=== PATIENT | male | born 1955 | race Caucasian/White ===

== ENCOUNTER 2020-04-12 09:06 | Emergency (ER) | payer MEDICAID, SELFPAY ==
[2020-04-12 09:16] VITALS: BP 157/91; BP 160/90; PULSE 106; PULSE 93; RESP 18; TEMP 36.8; O2SAT 97; O2SAT 98; BMI 20.9
[2020-04-12 09:18] LABS: Glucose, Whole Blood 458 mg/dL (60-115)
--- NOTE | 2020-04-12 09:19 | ECG_ITS ---
Test Reason : AP Blood Pressure : / mmHG Vent. Rate : 088 BPM Atrial Rate : 088 BPM P-R Int : 160 ms QRS Dur : 076 ms QT Int : 374 ms P-R-T Axes : 070 -14 038 degrees QTc Int : 452 ms Normal sinus rhythm Possible Left atrial enlargement Borderline ECG When compared with ECG of 12-JAN-2015 02:20, No significant change was found Referred By: Thierry Bautista Electronically Signed By:Milton Lomax
--- NOTE | 2020-04-12 09:22 | ED_ITS ---
HPI - Abdominal Pain General Chief Complaint: Abdominal Pain Stated Complaint: Abdominal Pain Time Seen by Provider: 04/12/20 09:17 Source: patient Mode of arrival: ambulatory Limitations: no limitations History of Present Illness HPI narrative: Patient presents to ED for epigastric abdominal pain for the past 5 days. Patient states no nausea, vomiting, fever, chills, diarrhea, chest pain, or shortness of breath. patient denies any dysuria, hematuria, flank pain, diarrhea, vomitting blood, or rectal bleeding. MD elicited complaint: abdominal pain Pertinent past history: HIV Related Data Previous Rx's Medication Instructions Recorded ondansetron HCl [Zofran] 4 mg PO Q6H PRN #8 tab 04/12/20 oxycodone-acetaminophen [Percocet] 1 tab PO TID PRN #9 tab 04/12/20 Allergies Allergy/AdvReac Type Severity Reaction Status Date / Time No Known Allergies Allergy Verified 04/12/20 09:21 [No Known Allergies*] Review of Systems Constitutional: Reports as per HPI and Reports no additional constitutional complaints Eyes: Reports as per HPI and Reports no additional eye complaints Reports system reviewed and no additional complaints, except as documented and Reports as per HPI Cardiovascular: Reports as per HPI and Reports no additional cardiovascular complaints Respiratory: Reports as per HPI and Reports no additional respiratory complaints Gastrointestinal: Reports as per HPI, Reports no additional gastrointestinal complaints, Reports abdominal pain, Denies belching, Denies melena, Denies bloating, Denies change in stool character, Denies coffee ground emesis, Denies constipation, Denies GI cramping, Denies diarrhea, Denies loose stools, Denies nausea, Denies vomiting and Denies hematemesis Genitourinary: Reports no additional male genitourinary complaints and Reports as per HPI Musculoskeletal: Reports no additional musculoskeletal complaints and Reports as per HPI Reports system reviewed and no additional complaints, except as documented and Reports as per HPI Psychiatric: Reports no additional psychiatric complaints and Reports as per HPI Physical Exam Vital Signs: Vital Signs: Last Vital Signs Temp 98.3 F 04/12/20 09:16 Pulse 74 04/12/20 13:29 Resp 16 04/12/20 13:29 BP 139/78 04/12/20 13:29 Pulse Ox 98 04/12/20 13:29 Body Mass Index 20.9 Const: General: cooperative, healthy appearing, comfortable, no acute distress, well developed, alert and awake Orientation/consciousness: patient oriented x3 HENMT: Head: Yes normal to inspection and Yes No palpable skull fracture present Eyes: General: appearance normal, both eyes and all related structures Neck: Neck: Yes normal visual inspection and Yes full ROM Chest: Chest palpation & inspection: normal inspection of the chest and normal palpation of entire chest wall Resp: Effort & Inspection: normal respiratory effort and able to speak in complete sentences Auscultation: clear to auscultation bilaterally Cardio: Jugular venous distension: no JVD Heart sounds: S1 normal heart sound present and S2 normal heart sound present GI: Inspection: Yes normal to inspection and No abdominal wall ecchymosis Palpation (GI): Soft to palpation, not firm, Tenderness to palpation present (GI) in the epigastrum; not at McBurney's point, not periumbilically, not suprapubicly, Antoine's sign negative, obturator sign negative, psoas sign negative, with no rebound tenderness and Rovsing's sign negative, no guarding and not rigid : General: No CVA tenderness and Yes no CVA tenderness Back/Spine/Pelvis: Back: no CVA tenderness, No CVA tenderness and No back tenderness Skin: General skin exam: no rashes or lesions noted Neuro: General: patient oriented x3, gait normal and CN's II-XI intact bilaterally Cranial nerves: Yes CN's II-XII intact bilaterally Extrem: General: Yes normal to inspection and Yes full ROM Psych: Appearance: grossly normal, well kempt and not disheveled Course Course Course Narrative: Patient will have basic labs including EKG and troponin due to patient having history of diabetes with epigastric pain. Patient will also be given fluids, and Pepcid. Patient is hyperglycemic. Patient admits to not taking his insulin this morning. Will evaluate for possible DKA or cardiac etiology. If pain is not improving and patient is not having a cardiac or DKA may indicate CT scan to make sure the pancreatitis. Reevaluation(s) Reevaluation #1: Patient's pain resolved after Pepcid and IV fluids. Patient's 2 troponins are negative. Patient's CT scan shows gallstone with no cholecystitis. CT scan also shows possible pancreatitis. Patient's lipase and liver enzymes normal. Patient does not have elevated white blood cell count. Patient would like to eat. Plan is most likely to discharge patient with pain medication. Awaiting response from Dr. Spear is for clearance. Patient has hyperglycemia improved. patient presently has no pain. Time: 14:23 Reevaluation #2: Spoke with Dr. Hui who states patient can be discharged and follow-up with [facility]. Dr. Hui was informed of patient's history, physical exam and diagnostics. Dr. Benz was sent picture of CT scan results, and lab results. Patient will be discharged with short course of narcotics. Patient not having cardiac event. Patient passed p.o. challenge Time: 14:34 MDM - Abdominal Pain MDM Narrative Medical decision making narrative: Gallstones pancreatitis Lab Data Result diagrams: 04/12/20 09:42 04/12/20 09:42 Labs: Lab Results 04/12/20 04/12/20 04/12/20 Range/Units 09:15 09:42 09:42 WBC 4.6 L (4.8-10.8) X10*3/uL RBC 5.10 (4.60-5.80) X10*6/uL Hgb 12.9 L (14.0-18.0) g/dl Hct 40.5 L (42-52) % MCV 79.4 L (80-98) fL MCH 25.3 L (27.0-33.0) pg MCHC 31.9 (31.0-36.0) g/dl RDW 12.9 (11.0-16.0) % Plt Count 161 (160-400) X10*3/uL MPV 10.0 (9.4-12.4) fL Immature Gran % (Auto) 0.2 (0.0-0.4) % Neut % (Auto) 76.5 H (45-73) % Lymph % (Auto) 15.3 L (20-40) % Appling % (Auto) 7.4 (2-11) % Eos % (Auto) 0.4 (0-4) % Baso % (Auto) 0.2 (0-2) % Lymph # (Auto) 0.7 L (1.2-4.9) X10*3/uL Appling # (Auto) 0.3 (0.1-1.2) X10*3/uL Eos # (Auto) 0.0 (0.0-0.4) X10*3/uL Baso # (Auto) 0.0 (0.0-0.2) X10*3/uL Abs Immat Gran (auto) 0.01 (0.00-0.03) X10*3/uL Absolute Neuts (auto) 3.5 (2.0-8.3) X10*3/uL Absolute Nucleated RBC 0.000 (0.0-0.012) X10*3/uL Nucleated RBC % (auto) 0.0 (0.0-0.2) /100WBC PT 13.5 H (10.8-13.0) SEC INR 1.1 (0.9-1.1) APTT 31.5 (24.1-38.0) SEC Sodium (135-145) mmol/L Potassium (3.3-5.1) mmol/l Chloride (96-108) mmol/L Carbon Dioxide (22-29) mmol/L Anion Gap (12-20) BUN (9-16) mg/dL Creatinine (0.5-1.4) mg/dL Estim Creat Clear Calc Estimated GFR POC Glucose 458 H* (60-115) mg/dL Random Glucose (60-115) mg/dL Calcium (8.4-10.2) mg/dL Total Bilirubin (0.0-1.0) mg/dL Direct Bilirubin (0.0-0.5) mg/dL AST (5-37) U/L ALT (0-40) U/L Alkaline Phosphatase (39-117) U/L Troponin I High Sens (<3.5-35.0) ng/L Total Protein (6.5-8.0) g/dL Albumin (3.5-5.0) g/dL Lipase (8-78) U/L Acetone, Qual (Negative) 04/12/20 04/12/20 04/12/20 Range/Units 09:42 09:42 11:09 WBC (4.8-10.8) X10*3/uL RBC (4.60-5.80) X10*6/uL Hgb (14.0-18.0) g/dl Hct (42-52) % MCV (80-98) fL MCH (27.0-33.0) pg MCHC (31.0-36.0) g/dl RDW (11.0-16.0) % Plt Count (160-400) X10*3/uL MPV (9.4-12.4) fL Immature Gran % (Auto) (0.0-0.4) % Neut % (Auto) (45-73) % Lymph % (Auto) (20-40) % Appling % (Auto) (2-11) % Eos % (Auto) (0-4) % Baso % (Auto) (0-2) % Lymph # (Auto) (1.2-4.9) X10*3/uL Appling # (Auto) (0.1-1.2) X10*3/uL Eos # (Auto) (0.0-0.4) X10*3/uL Baso # (Auto) (0.0-0.2) X10*3/uL Abs Immat Gran (auto) (0.00-0.03) X10*3/uL Absolute Neuts (auto) (2.0-8.3) X10*3/uL Absolute Nucleated RBC (0.0-0.012) X10*3/uL Nucleated RBC % (auto) (0.0-0.2) /100WBC PT (10.8-13.0) SEC INR (0.9-1.1) APTT (24.1-38.0) SEC Sodium 135 (135-145) mmol/L Potassium 4.3 (3.3-5.1) mmol/l Chloride 97 (96-108) mmol/L Carbon Dioxide 27 (22-29) mmol/L Anion Gap 15 (12-20) BUN 22 H (9-16) mg/dL Creatinine 1.19 (0.5-1.4) mg/dL Estim Creat Clear Calc 59.5 Estimated GFR > 60 POC Glucose 306 H (60-115) mg/dL Random Glucose 512 H* (60-115) mg/dL Calcium 8.5 (8.4-10.2) mg/dL Total Bilirubin 0.4 (0.0-1.0) mg/dL Direct Bilirubin 0.2 (0.0-0.5) mg/dL AST 19 (5-37) U/L ALT 17 (0-40) U/L Alkaline Phosphatase 81 (39-117) U/L Troponin I High Sens 5.2 (<3.5-35.0) ng/L Total Protein 7.8 (6.5-8.0) g/dL Albumin 4.0 (3.5-5.0) g/dL Lipase 71 (8-78) U/L Acetone, Qual Negative (Negative) 04/12/20 Range/Units 13:29 WBC (4.8-10.8) X10*3/uL RBC (4.60-5.80) X10*6/uL Hgb (14.0-18.0) g/dl Hct (42-52) % MCV (80-98) fL MCH (27.0-33.0) pg MCHC (31.0-36.0) g/dl RDW (11.0-16.0) % Plt Count (160-400) X10*3/uL MPV (9.4-12.4) fL Immature Gran % (Auto) (0.0-0.4) % Neut % (Auto) (45-73) % Lymph % (Auto) (20-40) % Appling % (Auto) (2-11) % Eos % (Auto) (0-4) % Baso % (Auto) (0-2) % Lymph # (Auto) (1.2-4.9) X10*3/uL Appling # (Auto) (0.1-1.2) X10*3/uL Eos # (Auto) (0.0-0.4) X10*3/uL Baso # (Auto) (0.0-0.2) X10*3/uL Abs Immat Gran (auto) (0.00-0.03) X10*3/uL Absolute Neuts (auto) (2.0-8.3) X10*3/uL Absolute Nucleated RBC (0.0-0.012) X10*3/uL Nucleated RBC % (auto) (0.0-0.2) /100WBC PT (10.8-13.0) SEC INR (0.9-1.1) APTT (24.1-38.0) SEC Sodium (135-145) mmol/L Potassium (3.3-5.1) mmol/l Chloride (96-108) mmol/L Carbon Dioxide (22-29) mmol/L Anion Gap (12-20) BUN (9-16) mg/dL Creatinine (0.5-1.4) mg/dL Estim Creat Clear Calc Estimated GFR POC Glucose (60-115) mg/dL Random Glucose (60-115) mg/dL Calcium (8.4-10.2) mg/dL Total Bilirubin (0.0-1.0) mg/dL Direct Bilirubin (0.0-0.5) mg/dL AST (5-37) U/L ALT (0-40) U/L Alkaline Phosphatase (39-117) U/L Troponin I High Sens 3.6 (<3.5-35.0) ng/L Total Protein (6.5-8.0) g/dL Albumin (3.5-5.0) g/dL Lipase (8-78) U/L Acetone, Qual (Negative) ECG Data Interpretation: Normal sinus rhythm. Ventricular rate 88. IN interval 160. QRS 76. Negative STEMI. Discharge Plan Discharge Clinical Impression: Gallstone pancreatitis Patient Disposition: Home, Self-Care Instructions: Pancreatitis (ED), Gallstones (ED) Additional Instructions: Return to the ED immediately for worsening abdominal pain, inability to tolerate solid food/liquid, vomiting, fever, chills, or any other concerning symptoms. Prescriptions: New oxycodone-acetaminophen [Percocet] 5-325 mg tablet 1 tab PO TID PRN (Reason: pain) Qty: 9 RF: 0 ondansetron HCl [Zofran] 4 mg tablet 4 mg PO Q6H PRN (Reason: pain) Qty: 8 RF: 0 Referrals: Emmanuel Hui MD [Physician] - 2 days (Gallstones with possible pancreatitis.) Stand Alone Forms: Work/School Release Print Language: [facility] Past Medical History Medical History (Updated 04/12/20 @ 14:27 by ROBSON Sutherland) Diabetes HIV (human immunodeficiency virus infection) Social History Social History Smoking Status: Former smoker Use of substances other than those prescribed or required for medical reasons: No Substance Use Type: Former Substance User Advance Directives: No Advance Directives Information Provided: No
[2020-04-12] MEDS: Famotidine/PF 20 MG/2 ML VIAL IVPUSH (09:53)
[2020-04-12] MEDS: 0.9 % Sodium Chloride 1,000 ML 999 ML IVCONT ×3 (09:53→11:10)
[2020-04-12] MEDS: Insulin Regular, Human 100 UNIT/ML 3 ML VIAL 10 UNIT IVPUSH (09:54)
[2020-04-12 09:56] LABS: MANUAL DIFF FLAG NO
[2020-04-12 09:57] VITALS: BP 151/87; PULSE 84; RESP 16; O2SAT 97
[2020-04-12 09:59] LABS: Basophils Percent Auto 0.2 % (0-2); Eosinophils Percent Auto 0.4 % (0-4); Hematocrit 40.5 % (42-52); Hemoglobin 12.9 g/dl (14.0-18.0); Imm Gran Abs Auto 0.01 X10*3/uL (0.00-0.03); Imm Gran Pct Auto 0.2 % (0.0-0.4); Lymphocytes Absolute Auto 0.7 X10*3/uL (1.2-4.9); Lymphocytes Percent Auto 15.3 % (20-40); Mean Corpuscular HGB Conc 31.9 g/dl (31.0-36.0); Mean Corpuscular Hemoglobin 25.3 pg (27.0-33.0); Mean Corpuscular Volume 79.4 fL (80-98); Monocytes Absolute Auto 0.3 X10*3/uL (0.1-1.2); Monocytes Percent Auto 7.4 % (2-11); Neutrophils Absolute Auto 3.5 X10*3/uL (2.0-8.3); Neutrophils Percent Auto 76.5 % (45-73); Platelet Count 161 X10*3/uL (160-400); Red Cell Distribution Width 12.9 % (11.0-16.0); White Blood Count 4.6 X10*3/uL (4.8-10.8)
[2020-04-12 10:13] LABS: INTERNATIONAL NORM RATIO 1.1 (0.9-1.1); Prothrombin Time 13.5 SEC (10.8-13.0)
[2020-04-12 10:15] LABS: Partial Thromboplastin Time 31.5 SEC (24.1-38.0)
[2020-04-12 10:31] LABS: Troponin-I High Sensitivity 5.2 ng/L (<3.5-35.0)
[2020-04-12 10:47] LABS: Alanine Aminotransferase 17 U/L (0-40); Alkaline Phosphatase 81 U/L (39-117); Anion Gap 15 (12-20); Aspartate Amino Transferase 19 U/L (5-37); Bilirubin Direct 0.2 mg/dL (0.0-0.5); Bilirubin Total 0.4 mg/dL (0.0-1.0); Blood Urea Nitrogen 22 mg/dL (9-16); Calcium 8.5 mg/dL (8.4-10.2); Carbon Dioxide 27 mmol/L (22-29); Chloride 97 mmol/L (96-108); Creatinine Clr Calc Pharmacy 59.5; Estimated Glomerular Filt Rate > 60; Glucose Random 512 mg/dL (60-115); Lipase 71 U/L (8-78); Potassium 4.3 mmol/l (3.3-5.1); Sodium 135 mmol/L (135-145); Total Protein 7.8 g/dL (6.5-8.0)
--- NOTE | 2020-04-12 10:49 | CT_ITS ---
EXAMINATION: CT ABDOMEN AND PELVIS WITH CONTRAST CLINICAL INFORMATION: Epigastric pain. Question pancreatitis, question cholecystitis. COMPARISON: 01/12/2015 TECHNIQUE: Multidetector volumetric images were obtained from the superior aspect of the liver through the pubic symphysis following administration 85 mL of Omnipaque 350 intravenous contrast. Sagittal and coronal reformatted images were obtained on the technologist's workstation. Oral contrast: No This CT examination was performed using dose optimization techniques as appropriate, variously including the following: *Automated exposure control *Adjustment of mA and/or kV according to patient size (this includes techniques or standardized protocols for targeted exams where dose is matched to indication/reason for exam; i.e. extremities or head) *Use of iterative reconstruction technique DLP: 125 mGy-cm FINDINGS: LUNG BASES: Mild bibasilar changes. LIVER, GALLBLADDER, AND BILIARY TREE: No focal liver lesions. No biliary duct dilatation. Small calcific focus in the left lobe of the liver, stable. Small gallstones. No obvious pericholecystic inflammatory changes are seen. PANCREAS: There is haziness in the fat adjacent to the head and neck of the pancreas and along the mesentery in this region. This appears new as compared to previous. This could represent sequela of pancreatitis. SPLEEN: Unremarkable. ADRENAL GLANDS: Unremarkable. KIDNEYS AND URETERS: Normal enhancement. No renal or ureteral calculi are seen. Redemonstrated is left extrarenal pelvis. No hydronephrosis. BLADDER: Unremarkable. GASTROINTESTINAL TRACT: Normal bowel obstruction. No inflammatory changes evident in the small or large bowel. The appendix is not visualized, with no obvious inflammatory changes right lower quadrant. ABDOMINAL WALL: Small fat-containing umbilical hernia. LYMPH NODES: No lymphadenopathy seen. VASCULAR: Normal caliber aorta. PELVIC VISCERA: Within normal limits. OSSEOUS STRUCTURES: No acute or suspicious osseous abnormality. L5-S1 disc degeneration. CT/CT abdomen pelvis w con IMPRESSION: 1. Haziness adjacent to the head and neck of the pancreas and along the root of the mesentery. This could represent sequela of pancreatitis. Please clinically correlate, correlate with blood work. Recommend follow-up CT to ensure resolution. 2. Gallstones. No CT evidence of obvious inflammatory changes. Further evaluation ultrasound as clinically warranted. 3. Additional findings and details as above.
[2020-04-12 11:12] LABS: Glucose, Whole Blood 306 mg/dL (60-115)
[2020-04-12 11:13] LABS: Acetone, serum QL Negative (Negative)
[2020-04-12] MEDS: iohexoL 350 MG/ML 100 ML INFUS..BTL 85 ML IV (11:46)
[2020-04-12 11:58] VITALS: BP 137/73; PULSE 70; RESP 16; O2SAT 98
[2020-04-12 13:29] VITALS: BP 139/78; PULSE 74; RESP 16; O2SAT 98
[2020-04-12 14:14] LABS: Troponin-I High Sensitivity 3.6 ng/L (<3.5-35.0)
== END 2020-04-12 15:42 | disposition home or self-care (01) ==
PROVIDERS: Physician Assistant; Emergency Provider Emergency Medicine
DX: K85.10 Biliary acute pancreatitis without necrosis or infection (principal); E11.9 Type 2 diabetes mellitus without complications; Z21 Asymptomatic human immunodeficiency virus [HIV] infection status
CPT/HCPCS: 36415; 74177; 80053; 80076; 82009; 82248; 82947; 83690; 84484; 85025; 85610; 85730; 93005; 96361; 96374; 96375; 99284; Q9967

== ENCOUNTER 2020-04-14 13:59 | Outpatient (REF) | payer MEDICAID, SELFPAY ==
[2020-04-14 15:42] LABS: Hematocrit 39.4 % (42-52); Hemoglobin 12.2 g/dl (14.0-18.0); Mean Corpuscular Hemoglobin 24.9 pg (27.0-33.0); Mean Corpuscular Volume 80.6 fL (80-98); Mean Platelet Volume 10.5 fL (9.4-12.4); Platelet Count 191 X10*3/uL (160-400); Red Blood Count 4.89 X10*6/uL (4.60-5.80); White Blood Count 5.1 X10*3/uL (4.8-10.8)
[2020-04-14 16:07] LABS: Alanine Aminotransferase 20 U/L (0-40); Albumin Level 4.1 g/dL (3.5-5.0); Alkaline Phosphatase 76 U/L (39-117); Amylase 50 U/L (28-100); Aspartate Amino Transferase 27 U/L (5-37); Bilirubin Direct 0.2 mg/dL (0.0-0.5); Bilirubin Total 0.3 mg/dL (0.0-1.0); Lipase 48 U/L (8-78); Total Protein 7.8 g/dL (6.5-8.0)
== END 2020-04-14 14:00 | disposition home or self-care (01) ==
LOC: HO.LAB 13:59
PROVIDERS: PCP Internal Medicine; Visit Provider Surgery
DX: K80.20 Calculus of gallbladder without cholecystitis without obstruction (principal)
CPT/HCPCS: 36415; 80076; 82150; 83690; 85027; 99202

== ENCOUNTER 2020-08-28 05:05 | Emergency (ER) | payer MEDICAID, SELFPAY ==
--- NOTE | ~2020-08-28 | US_ITS ---
EXAMINATION: US ABDOMEN LIMITED CLINICAL INFORMATION: Pancreatitis. Evaluate for cholecystitis.. COMPARISON: CT performed earlier same date. TECHNIQUE: Real-time imaging of the right upper quadrant abdominal viscera. FINDINGS: PANCREAS: Visualized portions grossly unremarkable from a sonographic standpoint. LIVER: Normal. The liver is normal in size. The liver contour is normal. Parenchymal echogenicity is normal. No focal hepatic lesion. There is no intrahepatic biliary duct dilatation seen. GALLBLADDER: There is a stone within the dependent gallbladder. No gallbladder wall thickening or pericholecystic fluid. COMMON BILE DUCT: Normal in caliber measuring 0.6 cm in diameter. RIGHT KIDNEY: No hydronephrosis. No renal calculi or focal parenchymal lesions. The kidney measures 9.7 cm in maximum dimension. FREE FLUID: None. US/US abdomen limited IMPRESSION: Cholelithiasis. No evidence of cholecystitis.
--- NOTE | ~2020-08-28 | CT_ITS ---
EXAMINATION: CT ABDOMEN AND PELVIS WITHOUT CONTRAST CLINICAL INFORMATION: History of pancreatitis. Rule out complication COMPARISON: 04/12/2020 TECHNIQUE: Multidetector volumetric imaging was performed from the superior aspect of the liver through the pubic symphysis. Sagittal and coronal reformatted images were obtained on the technologist's workstation. This CT examination was performed using dose optimization techniques as appropriate, variously including the following: *Automated exposure control *Adjustment of mA and/or kV according to patient size (this includes techniques or standardized protocols for targeted exams where dose is matched to indication/reason for exam; i.e. extremities or head) *Use of iterative reconstruction technique DLP: 424 mGy-cm FINDINGS: LUNG BASES: Mild dependent subsegmental atelectasis. LIVER, GALLBLADDER, AND BILIARY TREE: The liver is normal in size, shape, and attenuation. No focal hepatic lesion or biliary ductal dilatation is present. Cholelithiasis. PANCREAS: Fatty stranding present about the pancreatic head and neck. No peripancreatic fluid collection or acute necrotic collection present. Mild pancreatic fatty atrophy. SPLEEN: Unremarkable. ADRENAL GLANDS: Unremarkable. KIDNEYS AND URETERS: The kidneys are normal in size, shape, and attenuation. No hydronephrosis, hydroureter, or calculi seen. No perinephric stranding. BLADDER: Unremarkable. GASTROINTESTINAL TRACT: No bowel related abnormalities. ABDOMINAL WALL: No significant hernia is appreciated. LYMPH NODES: Normal. VASCULAR: Aorta is atherosclerotic. PELVIC VISCERA: Unremarkable. OSSEOUS STRUCTURES: No acute or suspicious osseous abnormalities. Significant loss of disc space height at L5-S1 with associated endplate osteophytes. CT/CT abdomen pelvis wo con IMPRESSION: * Acute uncomplicated pancreatitis predominantly involving the head and neck similar in appearance to the prior. No acute necrotic collection or peripancreatic fluid collection. * Cholelithiasis.
[2020-08-28 05:11] VITALS: BP 135/71; BP 162/80; PULSE 78; PULSE 80; RESP 18; TEMP 36.8; O2SAT 95; O2SAT 96; BMI 22.3
[2020-08-28 06:00] VITALS: BP 137/69; PULSE 70; RESP 15; TEMP 36.8; O2SAT 95
[2020-08-28 06:15] LABS: MANUAL DIFF FLAG NO
[2020-08-28 06:17] LABS: Basophils Percent Auto 0.3 % (0-2); Eosinophils Percent Auto 0.3 % (0-4); Hematocrit 38.3 % (42-52); Hemoglobin 11.9 g/dl (14.0-18.0); Imm Gran Abs Auto 0.02 X10*3/uL (0.00-0.03); Imm Gran Pct Auto 0.3 % (0.0-0.4); Lymphocytes Percent Auto 16.4 % (20-40); Mean Corpuscular HGB Conc 31.1 g/dl (31.0-36.0); Mean Corpuscular Hemoglobin 24.2 pg (27.0-33.0); Mean Platelet Volume 9.5 fL (9.4-12.4); Monocytes Absolute Auto 0.6 X10*3/uL (0.1-1.2); Monocytes Percent Auto 9.7 % (2-11); Neutrophils Absolute Auto 4.2 X10*3/uL (2.0-8.3); Platelet Count 200 X10*3/uL (160-400); Red Blood Count 4.91 X10*6/uL (4.60-5.80); Red Cell Distribution Width 13.4 % (11.0-16.0); White Blood Count 5.8 X10*3/uL (4.8-10.8)
[2020-08-28 06:50] LABS: Alanine Aminotransferase 14 U/L (0-40); Albumin Level 3.8 g/dL (3.5-5.0); Alkaline Phosphatase 114 U/L (39-117); Anion Gap 14 (12-20); Aspartate Amino Transferase 19 U/L (5-37); Bilirubin Total 0.5 mg/dL (0.0-1.0); Blood Urea Nitrogen 20 mg/dL (9-16); Calcium 9.3 mg/dL (8.4-10.2); Carbon Dioxide 31 mmol/L (22-29); Chloride 94 mmol/L (96-108); Estimated Glomerular Filt Rate > 60; Glucose Random 368 mg/dL (60-115); Potassium 4.4 mmol/L (3.3-5.1); Sodium 135 mmol/L (135-145)
--- NOTE | 2020-08-28 07:20 | ED_ITS ---
HPI - Abdominal Pain General Chief Complaint: Abdominal Pain Stated Complaint: Abd pain Time Seen by Provider: 08/28/20 07:19 Source: patient, EMS and test department helper Mode of arrival: EMS Limitations: no limitations History of Present Illness HPI narrative: 65 years old male came in for evaluation of abdominal pain. Abdominal pain started 4-5 days ago, describes the pain as dull aching pain confined to the epigastric and left side of the abdomen, no other radiation of the pain, patient describes the pain as intermittent more at night and morning time then improved during the day, now pain is mild 5/10. Pain is associated with nausea and vomiting but no fever, no diarrhea, no bloody or black stool, no urinary frequency. History of pancreatitis. Patient declined any history of alcohol intake. Related Data Home Medications Medication Instructions Recorded Confirmed insulin glargine 100 unit/mL (3 10 unit SUBCUT BID 04/14/20 mL) subcutaneous pen insulin lispro 100 unit/mL 10.5 unit SUBCUT BEDTIME 04/14/20 subcutaneous half-unit pen pioglitazone 45 mg tablet 45 mg PO DAILY 04/14/20 Previous Rx's Medication Instructions Recorded ondansetron HCl [Zofran] 4 mg PO Q6H PRN #8 tab 04/12/20 oxycodone-acetaminophen [Percocet] 1 tab PO TID PRN #9 tab 04/12/20 omeprazole 20 mg capsule,delayed 20 mg PO BID #60 cap 04/15/20 release Allergies Allergy/AdvReac Type Severity Reaction Status Date / Time No Known Allergies Allergy Verified 08/28/20 05:17 [No Known Allergies*] Review of Systems Review of Systems All other systems are reviewed and are negative Constitutional: Reports as per HPI and Reports no additional constitutional complaints Eyes: Reports as per HPI and Reports no additional eye complaints Reports system reviewed and no additional complaints, except as documented Cardiovascular: Reports as per HPI and Reports no additional cardiovascular complaints Respiratory: Reports as per HPI and Reports no additional respiratory complaints Gastrointestinal: Reports as per HPI and Reports no additional gastrointestinal complaints Genitourinary: Reports no additional female genitourinary complaints Musculoskeletal: Reports no additional musculoskeletal complaints Skin/Breast: Reports system reviewed and no additional complaints, except as docu Psychiatric: Reports no additional psychiatric complaints Endocrine: Reports no additional endocrine complaints Hematologic/Lymphatic: Reports no additional hematologic/lymphatic complaints Allergic/Immunologic: Reports no additional allergic/immunologic complaints Reports system reviewed and no additional complaints, except as documented and Reports Abnormal speech present Physical Exam Vital Signs: Vital Signs: Last Vital Signs Temp 98.2 F 08/28/20 11:33 Pulse 63 08/28/20 11:33 Resp 18 08/28/20 11:33 BP 193/82 H 08/28/20 11:33 Pulse Ox 97 08/28/20 11:33 Body Mass Index 22.3 Vital signs have been reviewed as appeared to be correct. Blood pressure normal. Heart rate normal. Respiration rate normal. Temperature normal. Oxygen saturation normal. Appearance: Alert. Oriented X3. No acute distress. Head: Normal external exam. Normocephalic. Atraumatic. No Noriega signs noted. No raccoon eyes noted Eyes: PERRLA. EOMI. Conjunctiva and sclera normal. Eyelids normal. ENT: TM's Normal. Pharynx normal. Uvula midline. Moist mucous membranes. No trismus noted. No drooling noted. No muffled voice noted. Neck: Normal inspection. Neck supple. FROM. No adenopathy. Thyroid Normal. No meningeal signs. No neck mass noted. CVS: Normal heart rate and rhythm. Heart sound normal. No murmurs noted. Pulses normal throughout. Respiratory: No respiratory distress. Painless inspiration. Breath sounds normal. No wheezes/rales/rhonchi noted. Chest nontender. No accessory muscle usage noted or decreased air movement noted. Abdomen: Soft, mild tenderness to epigastric/left abdomen, no guarding, no rebound tenderness. Bowel sounds normal in all 4 quadrants. No distention noted. No organomegaly noted. No visible injury noted. Back: No CVA tenderness. Full range of motion noted. Skin: Skin warm and dry. Normal skin color. Normal skin turgor. No rashes/lesions/lacerations noted. Extremities: No lower extremity edema. Extremities exhibit normal range of motion. Extremities nontender. Neuro: Oriented X 3. No motor deficit. No sensory deficit. Reflexes normal. Course Course Course Narrative: Assessment and plan. 65-year-old male with a history of pancreatitis (nonalcoholic) came in with upper abdominal pain, diagnosis was confirmed with CT of the abdomen pelvis with normal lipase, otherwise unremarkable labs. Also CT is concerned of cholelithiasis and patient had an ultrasound which confirmed cholelithiasis patient has a normal LFTs otherwise, patient was given Dr. Zhang information to follow up as an outpatient. Patient on daily methadone of 73 mg p.o., does was confirmed from his clinic and will be given a dose of methadone. MDM - Abdominal Pain Lab Data Attestation: I reviewed the patient's lab results. Result diagrams: 08/28/20 06:08 08/28/20 06:08 Labs: Lab Results 08/28/20 08/28/20 08/28/20 Range/Units 06:08 06:08 06:08 WBC 5.8 (4.8-10.8) X10*3/uL RBC 4.91 (4.60-5.80) X10*6/uL Hgb 11.9 L (14.0-18.0) g/dl Hct 38.3 L (42-52) % MCV 78.0 L (80-98) fL MCH 24.2 L (27.0-33.0) pg MCHC 31.1 (31.0-36.0) g/dl RDW 13.4 (11.0-16.0) % Plt Count 200 (160-400) X10*3/uL MPV 9.5 (9.4-12.4) fL Immature Gran % (Auto) 0.3 (0.0-0.4) % Neut % (Auto) 73.0 (45-73) % Lymph % (Auto) 16.4 L (20-40) % [place] % (Auto) 9.7 (2-11) % Eos % (Auto) 0.3 (0-4) % Baso % (Auto) 0.3 (0-2) % Lymph # (Auto) 1.0 L (1.2-4.9) X10*3/uL [place] # (Auto) 0.6 (0.1-1.2) X10*3/uL Eos # (Auto) 0.0 (0.0-0.4) X10*3/uL Baso # (Auto) 0.0 (0.0-0.2) X10*3/uL Abs Immat Gran (auto) 0.02 (0.00-0.03) X10*3/uL Absolute Neuts (auto) 4.2 (2.0-8.3) X10*3/uL Absolute Nucleated RBC 0.000 (0.0-0.012) X10*3/uL Nucleated RBC % (auto) 0.0 (0.0-0.2) /100WBC Hold Blue Top SEE NOTE Sodium 135 (135-145) mmol/L Potassium 4.4 (3.3-5.1) mmol/L Chloride 94 L (96-108) mmol/L Carbon Dioxide 31 H (22-29) mmol/L Anion Gap 14 (12-20) BUN 20 H (9-16) mg/dL Creatinine 1.08 (0.5-1.4) mg/dL Estim Creat Clear Calc 69.0 Estimated GFR > 60 POC Glucose (60-115) mg/dL Random Glucose 368 H* (60-115) mg/dL Calcium 9.3 D (8.4-10.2) mg/dL Total Bilirubin 0.5 (0.0-1.0) mg/dL AST 19 (5-37) U/L ALT 14 (0-40) U/L Alkaline Phosphatase 114 D (39-117) U/L Total Protein 8.0 (6.5-8.0) g/dL Albumin 3.8 (3.5-5.0) g/dL Lipase 48 (8-78) U/L Urine Color Urine Appearance Urine pH (5.0-8.0) Ur Specific [place] (1.005-1.025) Urine Protein (NEG-TRACE) MG/DL Urine Glucose (UA) (NEG) MG/DL Urine Ketones (NEG) MG/DL Urine Blood (NEG) Urine Nitrite (NEG) Ur Leukocyte Esterase (NEG) Urine RBC (0) /HPF Urine WBC (0-4) /HPF Ur Squamous Epith Cells /LPF Urine Bacteria /LPF 08/28/20 08/28/20 Range/Units 10:38 10:39 WBC (4.8-10.8) X10*3/uL RBC (4.60-5.80) X10*6/uL Hgb (14.0-18.0) g/dl Hct (42-52) % MCV (80-98) fL MCH (27.0-33.0) pg MCHC (31.0-36.0) g/dl RDW (11.0-16.0) % Plt Count (160-400) X10*3/uL MPV (9.4-12.4) fL Immature Gran % (Auto) (0.0-0.4) % Neut % (Auto) (45-73) % Lymph % (Auto) (20-40) % [place] % (Auto) (2-11) % Eos % (Auto) (0-4) % Baso % (Auto) (0-2) % Lymph # (Auto) (1.2-4.9) X10*3/uL [place] # (Auto) (0.1-1.2) X10*3/uL Eos # (Auto) (0.0-0.4) X10*3/uL Baso # (Auto) (0.0-0.2) X10*3/uL Abs Immat Gran (auto) (0.00-0.03) X10*3/uL Absolute Neuts (auto) (2.0-8.3) X10*3/uL Absolute Nucleated RBC (0.0-0.012) X10*3/uL Nucleated RBC % (auto) (0.0-0.2) /100WBC Hold Blue Top Sodium (135-145) mmol/L Potassium (3.3-5.1) mmol/L Chloride (96-108) mmol/L Carbon Dioxide (22-29) mmol/L Anion Gap (12-20) BUN (9-16) mg/dL Creatinine (0.5-1.4) mg/dL Estim Creat Clear Calc Estimated GFR POC Glucose 181 H (60-115) mg/dL Random Glucose (60-115) mg/dL Calcium (8.4-10.2) mg/dL Total Bilirubin (0.0-1.0) mg/dL AST (5-37) U/L ALT (0-40) U/L Alkaline Phosphatase (39-117) U/L Total Protein (6.5-8.0) g/dL Albumin (3.5-5.0) g/dL Lipase (8-78) U/L Urine Color YELLOW Urine Appearance CLEAR Urine pH 7.0 (5.0-8.0) Ur Specific [place] 1.015 (1.005-1.025) Urine Protein TRACE (NEG-TRACE) MG/DL Urine Glucose (UA) >=1000 H (NEG) MG/DL Urine Ketones NEG (NEG) MG/DL Urine Blood TRACE (NEG) Urine Nitrite NEG (NEG) Ur Leukocyte Esterase NEG (NEG) Urine RBC 0-2 (0) /HPF Urine WBC 0-2 (0-4) /HPF Ur Squamous Epith Cells 1+ /LPF Urine Bacteria NONE /LPF Imaging Data CT scan - abdomen: Radiologist's impression: Acute uncomplicated pancreatitis predominantly involving the head and neck similar in appearance to the prior. No acute necrotic collection or peripancreatic fluid collection. * Cholelithiasis. Gallbladder ultrasound: Radiologist's impression: Cholelithiasis without acute cholecystitis. Discharge Plan Discharge Clinical Impression: Cholelithiasis Qualifiers: Cholelithiasis location: gallbladder Cholecystitis presence: without cholecystitis Acute pancreatitis Qualifiers: Pancreatitis type: unspecified pancreatitis type Acute pancreatitis complication: unspecified Qualified Code(s): K85.90 - Acute pancreatitis without necrosis or infection, unspecified Patient Disposition: Home, Self-Care Instructions: Pancreatitis (ED), Gallstones (ED) Prescriptions: No Action omeprazole 20 mg capsule,delayed release(DR/EC) 20 mg PO BID Qty: 60 RF: 0 oxycodone-acetaminophen [Percocet] 5-325 mg tablet 1 tab PO TID PRN (Reason: pain) Qty: 9 RF: 0 ondansetron HCl [Zofran] 4 mg tablet 4 mg PO Q6H PRN (Reason: pain) Qty: 8 RF: 0 insulin lispro [Humalog Arnaldo KwikPen U-100] 100 unit/mL insulin pen, half- unit 10.5 unit subcut BEDTIME RF: 0 Lantus Solostar U-100 Insulin 100 unit/mL (3 mL) insulin pen 10 unit subcut BID RF: 0 pioglitazone 45 mg tablet 45 mg PO DAILY RF: 0 Referrals: Brook Zhang MD [Physician] - 2 days PMF Past Medical History Medical History Diabetes Gallstone HIV (human immunodeficiency virus infection) Methadone use Surgical History S/P appendectomy Social History Social History Alcohol intake: unknown Smoking Status: Unknown if ever smoked Use of substances other than those prescribed or required for medical reasons: Yes Substance Use Type: Heroin Any prior treatment program specific to substance use: Yes (Patient currently in [facility] program) Advance Directives: No Advance Directives Information Provided: No
[2020-08-28] MEDS: Magnesium Hydrox/Alum Hydrox 30 ML ORAL.SUSP PO (07:46)
[2020-08-28] MEDS: 0.9 % Sodium Chloride 1,000 ML 999 ML IVCONT ×2 (07:46→09:38)
[2020-08-28] MEDS: ondansetron HCL 4 MG/2 ML VIAL IVPUSH (07:46)
[2020-08-28] MEDS: Famotidine 20 MG TABLET PO (07:46)
[2020-08-28 09:02] LABS: Lipase 48 U/L (8-78)
[2020-08-28] MEDS: Insulin Regular, Human 100 UNIT/ML 3 ML VIAL IVPUSH (09:38)
--- NOTE | 2020-08-28 10:36 | PC.NURSE ---
pt ambulated to and from bathroom w steady gait.
[2020-08-28 10:43] LABS: Glucose, Whole Blood 181 mg/dL (60-115)
[2020-08-28 10:53] LABS: Glucose Urine UA >=1000 MG/DL (NEG); Leukocyte Esterase Urine NEG (NEG); Nitrite Urine NEG (NEG); Specific Gravity - Urine 1.015 (1.005-1.025); Urine Blood TRACE (NEG); Urine Ketones NEG (NEG); Urine Protein TRACE MG/DL (NEG-TRACE)
[2020-08-28 10:58] LABS: Appearance Urine CLEAR; Color Urine YELLOW
[2020-08-28 11:10] LABS: RBC Urine 0-2 /HPF (0); Squamous Epithelial Cell Urine 1+ /LPF; WBC Urine 0-2 /HPF (0-4)
[2020-08-28 11:33] VITALS: BP 193/82; PULSE 63; RESP 18; TEMP 36.8; O2SAT 97
--- NOTE | 2020-08-28 13:42 | PC.NURSE ---
pharmacy called for methadone dose, pt ready for discharge but methadone clinic is closed and dose verification completed by this rn. awaiting medication from pharmacy.
== END 2020-08-28 14:10 | disposition home or self-care (01) ==
PROVIDERS: Emergency Provider Emergency Medicine
DX: K80.20 Calculus of gallbladder without cholecystitis without obstruction (principal); K85.90 Acute pancreatitis without necrosis or infection, unspecified; R10.13 Epigastric pain; F11.10 Opioid abuse, uncomplicated; Z79.899 Other long term (current) drug therapy; Z21 Asymptomatic human immunodeficiency virus [HIV] infection status
CPT/HCPCS: 36415; 74176; 76705; 80053; 81001; 81003; 82947; 83690; 85025; 96365; 96375; 99285; J2405

== ENCOUNTER 2020-11-27 08:15 | Emergency (ER) | payer MEDICAID, SELFPAY ==
--- NOTE | ~2020-11-27 | XR_ITS ---
EXAMINATION: XR FOREARM-RIGHT XR ELBOW-RIGHT CLINICAL INFORMATION: Suspected foreign body. COMPARISON: None TECHNIQUE: 2 views of the right forearm and 3 views of the right elbow were obtained. FINDINGS: Right elbow: The bony alignments are intact. The cortices are intact. Articular margins, joint space appear unremarkable. Enthesopathy is seen at the insertional site of the triceps tendon to the olecranon process. No radiopaque foreign body. Right forearm: Bony alignments are intact. The cortices are intact. No evidence of any radiopaque foreign body. XR/XR elbow RT 2V IMPRESSION: 1. No radiopaque foreign bodies seen within the right elbow and right forearm. 2. Enthesopathy at the insertional site of the triceps tendon to the olecranon process.
--- NOTE | ~2020-11-27 | XR_ITS ---
EXAMINATION: XR FOREARM-RIGHT XR ELBOW-RIGHT CLINICAL INFORMATION: Suspected foreign body. COMPARISON: None TECHNIQUE: 2 views of the right forearm and 3 views of the right elbow were obtained. FINDINGS: Right elbow: The bony alignments are intact. The cortices are intact. Articular margins, joint space appear unremarkable. Enthesopathy is seen at the insertional site of the triceps tendon to the olecranon process. No radiopaque foreign body. Right forearm: Bony alignments are intact. The cortices are intact. No evidence of any radiopaque foreign body. XR/XR forearm RT 2V IMPRESSION: 1. No radiopaque foreign bodies seen within the right elbow and right forearm. 2. Enthesopathy at the insertional site of the triceps tendon to the olecranon process.
[2020-11-27 08:26] VITALS: BP 141/83; BP 188/90; PULSE 84; PULSE 87; RESP 18; TEMP 37.3; O2SAT 97; BMI 22.3
[2020-11-27 08:31] LABS: Glucose, Whole Blood 562 mg/dL (60-115)
--- NOTE | 2020-11-27 08:32 | ED_ITS ---
HPI - Skin/Abscess/Foreign Bdy General Chief complaint: Skin/Abscess/Foreign Body Stated complaint: ? R ARM INFECTION S/P IVDU LAST WEEK Time Seen by Provider: 11/27/20 08:28 Source: patient Mode of arrival: EMS Limitations: no limitations History of Present Illness HPI narrative: This is a 65 years old male with history of diabetes, history of IVDA, history of HIV presented to the emergency department by ambulance with a chief complaint of a right forearm a infection and elevated blood sugar. He states that he injected in the right forearm a 3 days ago his since then has been having swelling and tenderness Onset (ago): day(s) (3 days) Tetanus up to date: yes Severity: moderate Quality: burning Pain Consistency: constant Relieving factors: none Exacerbating factors: none Related Data Home Medications Medication Instructions Recorded Confirmed insulin glargine 100 unit/mL (3 10 unit SUBCUT BID 04/14/20 mL) subcutaneous pen (Lantus Solostar U-100 Insulin) insulin lispro 100 unit/mL 10.5 unit SUBCUT BEDTIME 04/14/20 subcutaneous half-unit pen (Humalog Ranaldo KwikPen (U-100)) pioglitazone 45 mg tablet 45 mg PO DAILY 04/14/20 Previous Rx's Medication Instructions Recorded ondansetron HCl 4 mg tablet 4 mg PO Q6H PRN #8 tab 04/12/20 (Zofran) oxycodone-acetaminophen 5 mg-325 1 tab PO TID PRN #9 tab 04/12/20 mg tablet (Percocet) omeprazole 20 mg capsule,delayed 20 mg PO BID #60 cap 04/15/20 release cephalexin 500 mg capsule 500 mg PO Q8H 10 Days #30 cap 11/27/20 naproxen 500 mg tablet (Naprosyn) 500 mg PO BID PRN #20 tab 11/27/20 sulfamethoxazole 800 1 tab PO Q12H #20 tab 11/27/20 mg-trimethoprim 160 mg tablet (Bactrim DS) Allergies Allergy/AdvReac Type Severity Reaction Status Date / Time No Known Allergies Allergy Verified 08/28/20 05:17 [No Known Allergies*] Review of Systems Review of Systems: Yes all other systems are reviewed and are negative Constitutional: Constitutional: Denies chills and Denies excessive sweating Eyes: Eyes: Reports no additional eye complaints ENT: Reports system reviewed and no additional complaints, except as documented Gastrointestinal: Gastrointestinal: Reports as per HPI Genitourinary: Genitourinary: Reports no additional male genitourinary complaints Musculoskeletal: Musculoskeletal: Reports no additional musculoskeletal complaints Endocrine: Endocrine: Denies excessive sweating PMFSH Past Medical History Attestation statement: The following information was validated with the patient. Medical History Diabetes Gallstone HIV (human immunodeficiency virus infection) Methadone use Surgical History S/P appendectomy Social History Social History Alcohol intake: unknown Patient Tobacco Use Status: Never used Tobacco Use of substances other than those prescribed or required for medical reasons: Yes Substance Use Type: Heroin Substance Use Type Other:: Methadone Last Used Substance: Days (ago) Advance Directives: No Advance Directives Information Provided: No Physical Exam Vital Signs: Vital Signs: Last Vital Signs Temp 99.1 F 11/27/20 08:26 Pulse 84 11/27/20 08:26 Resp 18 11/27/20 08:26 BP 141/83 H 11/27/20 08:26 Pulse Ox 97 11/27/20 08:26 Body Mass Index 22.3 Const: Other: He looks well, he is not toxic-appearing General: cooperative Nutritional Appearance: average body habitus Orientation/consciousness: oriented to person, oriented to place, oriented to time and patient oriented x3 HENMT: Head: Yes normal to inspection Ears: hearing grossly normal bilaterally General nose exam: Normal external nose present Face and sinus: Yes normal facial exam Neck: Neck: Yes normal visual inspection, Yes full ROM and Yes no lymphadenopathy Thyroid: Thyroid normal Chest: Chest palpation & inspection: normal inspection of the chest Resp: Effort & Inspection: normal respiratory effort Auscultation: clear to auscultation bilaterally Cardio: Jugular venous distension: no JVD Rate: regular rate Rhythm: regular rhythm GI: Inspection: Yes normal to inspection Palpation (GI): Soft to palpation, not firm, nontender and no guarding Skin: Other: Examination of the right upper extremity shows an area of 4 x 4 cm of induration redness Neuro: General: oriented to person, oriented to place, oriented to time and patient oriented x3 Course Reevaluation(s) Reevaluation #1: BLOOD SUGAR IMPROVING, LACTIC ACID IS ELEVATED, IV ANTIBIOTICS ADMINISTERED, I RECOMMENDED ADMISSION, BUT THE PATIENT AND THE PATIENT DECLINED WANTS TO SIGN AMA HE UNDERSTAND THE RISK INCLUDING SUDDENDEATH. PATIENT SIGN AGAINST MEDICAL ADVICE Procedures Abscess I/D Site: upper extremity (rt UPPER EXTREMITY) Side (if applicable): right (ELBOW) Local Anesthetic: lidocaine 1% Amount of anesthesia used (mL): 5 Technique: incised with blade and other (BLADE 15 OBTAINE LARGE AMOUNT OF PUS) Amount of fluid expressed (mL): 20 Sent for culture/gram staining?: No Irrigation: No Discharge Plan Discharge Clinical Impression: Abscess of arm, right, Hyperglycemia due to diabetes mellitus, Acidosis, lactic, Left against medical advice Patient Disposition: Left Against Medical Advice Instructions: Against Medical Advice (ED), Abscess Incision and Drainage (DC) Prescriptions: New sulfamethoxazole-trimethoprim [Bactrim DS] 800-160 mg tablet 1 tab PO Q12H Qty: 20 RF: 0 cephalexin 500 mg capsule 500 mg PO Q8H 10 Days Qty: 30 RF: 0 naproxen [Naprosyn] 500 mg tablet 500 mg PO BID PRN (Reason: pain) Qty: 20 RF: 0 No Action omeprazole 20 mg capsule,delayed release(DR/EC) 20 mg PO BID Qty: 60 RF: 0 oxycodone-acetaminophen [Percocet] 5-325 mg tablet 1 tab PO TID PRN (Reason: pain) Qty: 9 RF: 0 ondansetron HCl [Zofran] 4 mg tablet 4 mg PO Q6H PRN (Reason: pain) Qty: 8 RF: 0 insulin lispro [Humalog Arnaldo KwikPen U-100] 100 unit/mL insulin pen, half- unit 10.5 unit subcut BEDTIME RF: 0 Lantus Solostar U-100 Insulin 100 unit/mL (3 mL) insulin pen 10 unit subcut BID RF: 0 pioglitazone 45 mg tablet 45 mg PO DAILY RF: 0 Interventions: ED Discharge Assessment Last Done: 11/27/20 13:14 Discharge Date/Time: 11/27/20 13:14
[2020-11-27 08:52] LABS: MANUAL DIFF FLAG NO
[2020-11-27 08:53] LABS: Basophils Percent Auto 0.3 % (0-2); Eosinophils Absolute Auto 0.1 X10*3/uL (0.0-0.4); Eosinophils Percent Auto 1.4 % (0-4); Hematocrit 37.1 % (42-52); Hemoglobin 11.7 g/dl (14.0-18.0); Imm Gran Abs Auto 0.03 X10*3/uL (0.00-0.03); Imm Gran Pct Auto 0.5 % (0.0-0.4); Lymphocytes Absolute Auto 1.1 X10*3/uL (1.2-4.9); Lymphocytes Percent Auto 16.6 % (20-40); Mean Corpuscular HGB Conc 31.5 g/dl (31.0-36.0); Mean Corpuscular Hemoglobin 24.2 pg (27.0-33.0); Mean Corpuscular Volume 76.7 fL (80-98); Monocytes Absolute Auto 0.5 X10*3/uL (0.1-1.2); Monocytes Percent Auto 7.5 % (2-11); Neutrophils Absolute Auto 4.8 X10*3/uL (2.0-8.3); Neutrophils Percent Auto 73.7 % (45-73); Platelet Count 186 X10*3/uL (160-400); Red Blood Count 4.84 X10*6/uL (4.60-5.80); Red Cell Distribution Width 14.1 % (11.0-16.0); White Blood Count 6.5 X10*3/uL (4.8-10.8)
[2020-11-27] MEDS: Lidocaine HCl 1 % 20 ML VIAL SUBCUT (08:53)
[2020-11-27] MEDS: 0.9 % Sodium Chloride 1,000 ML 999 ML IVCONT ×2 (08:53→11:16)
[2020-11-27] MEDS: Insulin Lispro 100 UNIT/ML 3 ML VIAL 12 UNIT SUBCUT (08:53)
[2020-11-27 09:41] LABS: Acetone, serum QL Negative (Negative)
[2020-11-27 09:43] LABS: Lactic Acid 2.6 mmol/L (0.5-2.0)
[2020-11-27 09:43] LABS: Alanine Aminotransferase 13 U/L (0-40); Albumin Level 3.7 g/dL (3.5-5.0); Alkaline Phosphatase 148 U/L (39-117); Anion Gap 16 (12-20); Aspartate Amino Transferase 18 U/L (5-37); Bilirubin Total 0.4 mg/dL (0.0-1.0); Blood Urea Nitrogen 16 mg/dL (9-16); Calcium 9.2 mg/dL (8.4-10.2); Carbon Dioxide 24 mmol/L (22-29); Chloride 95 mmol/L (96-108); Creatinine Clr Calc Pharmacy 63.8; Estimated Glomerular Filt Rate > 60; Glucose Random 667 mg/dL (60-115); Potassium 4.7 mmol/L (3.3-5.1); Sodium 130 mmol/L (135-145); Total Protein 8.3 g/dL (6.5-8.0)
--- NOTE | 2020-11-27 09:50 | PC.NURSE ---
Dr Markham to bedside for incision and drainage
[2020-11-27 10:13] LABS: Glucose, Whole Blood 481 mg/dL (60-115)
[2020-11-27] MEDS: Piperacillin Sodium/Tazobactam 4.5 GM in 0.9 % Sodium Chloride 100 ML IV (10:13)
--- NOTE | 2020-11-27 10:19 | PC.NURSE ---
Plan for IV Abx in ED but pt wants to leave AMA
[2020-11-27 11:13] LABS: Reflex Lactate? Lactic Acid Added
[2020-11-27] MEDS: vancomycin HCL 1,500 MG in 0.9 % Sodium Chloride 500 ML 333.33 MG IV (11:16)
[2020-11-27 11:58] LABS: ~Lactic Acid-LAB USE ONLY 1.8 mmol/L (0.5-2.0)
== END 2020-11-27 13:14 | disposition left against medical advice (07) ==
PROVIDERS: Emergency Provider Emergency Medicine
DX: L02.413 Cutaneous abscess of right upper limb (principal); E11.65 Type 2 diabetes mellitus with hyperglycemia; E87.2 Acidosis; F19.10 Other psychoactive substance abuse, uncomplicated; M79.631 Pain in right forearm; R22.31 Localized swelling, mass and lump, right upper limb; B20 Human immunodeficiency virus [HIV] disease; F11.20 Opioid dependence, uncomplicated; Z79.899 Other long term (current) drug therapy; Z79.4 Long term (current) use of insulin
CPT/HCPCS: 10060; 36415; 73070; 73090; 80053; 82009; 82947; 83605; 85025; 87040; 96361; 96365; 96368; 99284; 99285; J2543; J3370

== ENCOUNTER 2020-12-04 08:07 | Emergency (ER) | payer MEDICAID, SELFPAY ==
[2020-12-04 08:19] VITALS: BP 141/68; PULSE 84; RESP 17; TEMP 36.4; O2SAT 98; BMI 22.2
[2020-12-04] MEDS: Lidocaine HCl 1 % MPF 5 ML VIAL SUBCUT ×2 (09:31→09:32)
--- NOTE | 2020-12-04 10:25 | ED.RECABL ---
HPI - Recheck/Abnormal Lab/Rx General Chief Complaint: Skin/Abscess/Foreign Body Stated Complaint: skin abcess Time Seen by Provider: 12/04/20 08:18 Source: patient Mode of arrival: ambulatory Limitations: language barrier (Cambodian-speaking) History of Present Illness HPI narrative: 65-year-old male with a past medical history of diabetes, IV drug use and HIV presenting to the ED for recheck of an abscess/cellulitis to his right forearm that he reports he was seen here and had an I&D on 11/27/2020 and reports that he has been taking his antibiotics as prescribed which is Bactrim and Keflex along with naproxen and he reports that the redness had resolved although the swelling reaccumulated after few days and he believes that he has more pus in there. He reports that he has not used any IV drugs since he has had the I&D on 11/27/2020. He reports his blood glucose levels are within normal limits. He denies any fevers, chills, diaphoresis or any other symptoms complaints or concerns at this time. MD complaint: wound re-check Initial visit (ago): day(s) (7 days ago) Initial visit for: cellulitis and abscess Returns today for: wound recheck Symptoms since prior visit: worsening swelling Associated symptoms: other (Worsening swelling) Treatments prior to arrival: given antibiotics on (11/27/2020 Bactrim and Keflex) and given pain meds on (11/27/2020 given naproxen) Related Data Home Medications Medication Instructions Recorded Confirmed insulin glargine 100 unit/mL (3 10 unit SUBCUT BID 04/14/20 mL) subcutaneous pen (Lantus Solostar U-100 Insulin) insulin lispro 100 unit/mL 10.5 unit SUBCUT BEDTIME 04/14/20 subcutaneous half-unit pen (Humalog Arnaldo [employer] (U-100)) pioglitazone 45 mg tablet 45 mg PO DAILY 04/14/20 Previous Rx's Medication Instructions Recorded ondansetron HCl 4 mg tablet 4 mg PO Q6H PRN #8 tab 04/12/20 (Zofran) oxycodone-acetaminophen 5 mg-325 1 tab PO TID PRN #9 tab 04/12/20 mg tablet (Percocet) omeprazole 20 mg capsule,delayed 20 mg PO BID #60 cap 04/15/20 release cephalexin 500 mg capsule 500 mg PO Q8H 10 Days #30 cap 11/27/20 naproxen 500 mg tablet (Naprosyn) 500 mg PO BID PRN #20 tab 11/27/20 sulfamethoxazole 800 1 tab PO Q12H #20 tab 11/27/20 mg-trimethoprim 160 mg tablet (Bactrim DS) Allergies Allergy/AdvReac Type Severity Reaction Status Date / Time No Known Allergies Allergy Verified 08/28/20 05:17 [No Known Allergies*] Review of Systems Review of Systems: Constitutional : No Fever, No Chills, Cardiovascular : No Chest Pain, No SOB Respiratory : No Dyspnea Gastrointestinal : No abdominal pain Musculoskeletal : No Joint Swelling Skin : positive skin abscess, no laceration, No Foreign bodies, No rash, No surrounding erythema Neuro : No Weakness, No Numbness/tingling Psych : No SI/HI/thoughts of self injury Yes all other systems are reviewed and are negative [facility] Past Medical History Attestation statement: The following information was validated with the patient. Medical History Diabetes Gallstone HIV (human immunodeficiency virus infection) Methadone use Surgical History S/P appendectomy Social History Social History Alcohol intake: never Patient Tobacco Use Status: Never used Tobacco Use of substances other than those prescribed or required for medical reasons: No Substance Use Type: Heroin Advance Directives: Yes Advance Directives Information Provided: Yes Advance Directives on File: No Physical Exam Vital Signs: Vital Signs: Last Vital Signs Temp 97.5 F 12/04/20 08:19 Pulse 84 12/04/20 08:19 Resp 17 12/04/20 08:19 BP 141/68 H 12/04/20 08:19 Pulse Ox 98 12/04/20 08:19 Body Mass Index 22.2 vital signs have been reviewed as normal and appeared to be correct. Blood pressure hypertensive 141/68 Heart rate normal. Respiration rate normal. Temperature normal. Oxygen saturation normal. Appearance: Alert. Oriented X3. No acute distress. Head: Normal external exam. Normocephalic. Atraumatic. Eyes: PERRLA. EOMI. Conjunctiva and sclera normal. Eyelids normal. ENT: Pharynx normal. Uvula midline. Moist mucous membranes. Neck: Normal inspection. Neck supple. FROM. No adenopathy. No meningeal signs. CVS: Normal heart rate and rhythm. Heart sound normal. Pulses normal throughout. Respiratory: No respiratory distress. Painless inspiration. Back:Full range of motion noted. No rashes/lesion/induration/fluctuance or signs of infection noted. Skin: Moderate size abscess to right upper extremity/elbow anterior aspect. No surrounding erythema or streaking noted. The rest of the skin is warm and dry. Normal skin color. Normal skin turgor. No rashes/lesions/lacerations noted. Extremities: Extremities exhibit normal range of motion. Extremities nontender. Neuro: Oriented X 3. No motor deficit. No sensory deficit. Reflexes normal. Normal steady gait. No focal neuro deficits noted. Vascular: + radial pulses/+ 2 distal pedal pulses/+2 dorsalis pedis b/l. Normal cap refill. No cyanosis noted to upper extremity nails and lower extremity toes nails. Course Course Course Narrative: 65-year-old male presenting to the ED for cellulitis/abscess recheck after her reformed a few days after he had I&D done 11/27/2020 despite taking his Bactrim/Keflex and naproxen as prescribed. Denies any recent drug usage especially IV drug usage. Reports that his blood glucose levels are within normal limits. I offered him labs and admission although patient refused he reports that he just needs the pus taken out and he will continue taking the antibiotics and if they worsen he will return. Therefore patient is now status post I and D of abscess with packing placed. Moderate amount of purulent/bloody drainage was excreted. Patient tolerated procedure well. No complications. Will DC home with instructions to return in 2 days for wound check/packing removal and to continue taking his antibiotics as previously prescribed. Patient understands agrees with this plan. MDM - Recheck/Abnormal Lab/Rx Medical Records Attestation: I reviewed the patient's medical records. Procedures Abscess I/D Site: upper extremity Side (if applicable): right Local Anesthetic: lidocaine 1% Amount of anesthesia used (mL): 10 Technique: incised with blade Amount of fluid expressed (mL): 15 Sent for culture/gram staining?: No Irrigation: Yes Packing used?: iodoform Complications: other (No complications) Discharge Plan Discharge Clinical Impression: Abscess of skin or subcutaneous tissue Patient Disposition: Home, Self-Care Instructions: Abscess (ED) Additional Instructions: Continue taking your previously prescribed antibiotics as previously prescribed. Return in 2 days for wound check/packing removal. If the packing falls out please to not attempt to place it back in to the wound. If you have any worsening symptoms including any fevers, chills, worsening swelling or redness or elevated glucose level you to return immediately. You were offered labs and admission although you refused. Return if any new or worsening symptoms before the 2 days although return in 2 days for wound check/packing removal. Prescriptions: No Action omeprazole 20 mg capsule,delayed release(DR/EC) 20 mg PO BID Qty: 60 RF: 0 oxycodone-acetaminophen [Percocet] 5-325 mg tablet 1 tab PO TID PRN (Reason: pain) Qty: 9 RF: 0 ondansetron HCl [Zofran] 4 mg tablet 4 mg PO Q6H PRN (Reason: pain) Qty: 8 RF: 0 sulfamethoxazole-trimethoprim [Bactrim DS] 800-160 mg tablet 1 tab PO Q12H Qty: 20 RF: 0 cephalexin 500 mg capsule 500 mg PO Q8H 10 Days Qty: 30 RF: 0 naproxen [Naprosyn] 500 mg tablet 500 mg PO BID PRN (Reason: pain) Qty: 20 RF: 0 insulin lispro [Humalog Arnaldo KwikPen U-100] 100 unit/mL insulin pen, half-unit 10.5 unit subcut BEDTIME RF: 0 Lantus Solostar U-100 Insulin 100 unit/mL (3 mL) insulin pen 10 unit subcut BID RF: 0 pioglitazone 45 mg tablet 45 mg PO DAILY RF: 0 Referrals: Alyssa Jaquez PA [Emergency Midlevel Provider] - 2 days (For wound check/packing removal) Print Language: Cambodian
[2020-12-04] MEDS: oxyCODONE HCl Immed Release 5 MG TABLET PO (10:36)
== END 2020-12-04 10:38 | disposition home or self-care (01) ==
PROVIDERS: Emergency Provider Emergency Medicine Emergency Medical Services
DX: L02.413 Cutaneous abscess of right upper limb (principal); B20 Human immunodeficiency virus [HIV] disease; E11.9 Type 2 diabetes mellitus without complications; F11.20 Opioid dependence, uncomplicated
CPT/HCPCS: 10060; 99284

== ENCOUNTER 2020-12-06 08:07 | Emergency (ER) | payer MEDICAID, SELFPAY ==
[2020-12-06 09:07] VITALS: BP 143/76; PULSE 70; RESP 16; TEMP 36.4; O2SAT 99; BMI 21.6
--- NOTE | 2020-12-06 09:33 | ED_ITS ---
HPI - Skin/Abscess/Foreign Bdy General Chief complaint: Skin/Abscess/Foreign Body Stated complaint: bandage change Time Seen by Provider: 12/06/20 09:06 Source: patient Mode of arrival: ambulatory Limitations: no limitations History of Present Illness HPI narrative: 65-year-old male presents for wound check. Patient was seen on November 27, 2020 for an incision and drainage for an abscess with cellulitis in his right AC. Patient was placed on Bactrim and Keflex. Patient was seen again on December 04, 2020, and had another I & D with packing. Patient was instructed to return today, 2 days after the 2nd I & D, for packing removal and wound recheck. Patient has had no fevers, no nausea, no vomiting, he feels well. Patient has been washing around his wound with Betadine, and dressing the wound every day. Patient has a follow-up on December 10 through his primary care provider to reassess the wound. Related Data Home Medications Medication Instructions Recorded Confirmed insulin glargine 100 unit/mL (3 10 unit SUBCUT BID 04/14/20 mL) subcutaneous pen (Lantus Solostar U-100 Insulin) insulin lispro 100 unit/mL 10.5 unit SUBCUT BEDTIME 04/14/20 subcutaneous half-unit pen (Humalog Arnaldo KwikPen (U-100)) pioglitazone 45 mg tablet 45 mg PO DAILY 04/14/20 Previous Rx's Medication Instructions Recorded ondansetron HCl 4 mg tablet 4 mg PO Q6H PRN #8 tab 04/12/20 (Zofran) oxycodone-acetaminophen 5 mg-325 1 tab PO TID PRN #9 tab 04/12/20 mg tablet (Percocet) omeprazole 20 mg capsule,delayed 20 mg PO BID #60 cap 04/15/20 release cephalexin 500 mg capsule 500 mg PO Q8H 10 Days #30 cap 11/27/20 naproxen 500 mg tablet (Naprosyn) 500 mg PO BID PRN #20 tab 11/27/20 sulfamethoxazole 800 1 tab PO Q12H #20 tab 11/27/20 mg-trimethoprim 160 mg tablet (Bactrim DS) Allergies Allergy/AdvReac Type Severity Reaction Status Date / Time No Known Allergies Allergy Verified 08/28/20 05:17 [No Known Allergies*] Review of Systems Review of Systems: Constitutional : No Weight loss, No Fever, No Chills, No Night Sweats,No Fatigue, No Malaise ENT/Mouth : No Hearing loss, No Ear Pain, No Nasal Congestion, NoSinus Pain, No Hoarseness, No sore throat, No Rhinorrhea, NoSwallowing Difficulty Eyes: No Eye Pain, No Swelling, No Redness, No Foreign Body, NoDischarge, No Vision Changes Cardiovascular : No Chest Pain, No SOB, No Dyspnea on Exertion, NoOrthopnea, No Edema, No Palpitations Respiratory : No Cough, No Sputum, No Wheezing, No Smoke Exposure, No Dyspnea Gastrointestinal : No Nausea, No Vomiting, No Diarrhea, NoConstipation, No abdominal Pain, No Hematochezia, No Melena Genitourinary : no irregular bleeding, No Dysuria, No UrinaryFrequency, No Hematuria, No Urinary Incontinence, No Urgency, No FlankPain, No Urinary Flow Changes, No Hesitancy Musculoskeletal : No joint pain, No Myalgias, No Joint Swelling Neuro : No Weakness, No Numbness, No Paresthesias, No Loss ofConsciousness, No Dizziness, No Headache Psych : No Anxiety/Panic, No Depression, No SI/HI/AH/VH, No Social Issues, Heme/Lymph: No Bruising, No Bleeding,No Lymphadenopathy Endocrine : No Polyuria, No Polydipsia, No Temperature Intolerance Yes all other systems are reviewed and are negative Integumentary/Breasts: Comments: Wound to right AC status post incision and drainage with packing 2 days ago [facility] Past Medical History Medical History Diabetes Gallstone HIV (human immunodeficiency virus infection) Methadone use Surgical History S/P appendectomy Social History Social History Alcohol intake: never Patient Tobacco Use Status: Never used Tobacco Substance Use Type: Heroin Advance Directives: No Advance Directives Information Provided: No Physical Exam Vital Signs: Vital Signs: Last Vital Signs Temp 97.6 F 12/06/20 09:07 Pulse 70 12/06/20 09:07 Resp 16 12/06/20 09:07 BP 143/76 H 12/06/20 09:07 Pulse Ox 99 12/06/20 09:07 Body Mass Index 21.6 Appearance: Alert. Oriented X3. No acute distress. Head: Normal external exam. Normocephalic. Atraumatic. ?No Noriega signs noted. No raccoon eyes noted Eyes: PERRLA. EOMI. Conjunctiva and sclera normal. Eyelids normal. ENT: EAC normal. TM's Normal. Pharynx normal. Uvula midline. Moist mucous membranes. ??No trismus noted. ?No drooling noted. ?No muffled voice noted. Neck: Normal inspection. Neck supple. FROM. No adenopathy. Thyroid Normal. No meningeal signs. No neck mass noted. CVS: Normal heart rate and rhythm. Heart sound normal. Pulses normal throughout. ?No murmurs/rales/gallops. Respiratory: No respiratory distress. Painless inspiration. Breath sounds normal. No wheezes/rales/rhonchi noted. Chest nontender. ??No accessory muscle usage noted or decreased air movement noted. Abdomen: Soft and nontender. Bowel sounds normal in all 4 quadrants. No distention noted. ?No organomegaly noted. ?No visible injury noted. Back: ?No CVA tenderness. ?Full range of motion noted. ? Skin: 5 cm by 5cm abscess with significant induration but no purlence or drainage. No surrounding cellulitis. Not warm, non-tender. Extremities: No lower extremity edema. ??Extremities exhibit normal range of motion. ?Extremities nontender. Neuro: Oriented X 3. ?No motor deficit. ?No sensory deficit. ?Reflexes normal. ?Normal steady gait. ?No focal neuro deficits noted. Vascular: + radial pulses/+ 2 distal pedal pulses/+2 dorsalis pedis b/l. ?Normal cap refill. ?No cyanosis noted to upper extremity nails and lower extremity toes nails. Course Course Course Narrative: 65-year-old male presents for 2 day I&D packing recheck of his right AC abscess that was drained on December 04, and also drained on November 27. Patient has been taking his antibiotics, he is feeling well. Past medical history diabetes, IV drug use, HIV. On exam, patient is well-appearing, afebrile, there is a 5 cm x 5 cm indurated packed abscess in his right AC. Patient tolerated packing removal, cleaned and dressed wound. The skin has no evidence of purulent drainage, no cellulitis, patient has follow-up with his PCP in 4 days. Advised pt to discuss with PCP if he needs to have general surgery assess his wound, due to the significant induration. Counselled return precautions for fevers, redness, nausea or vomiting, counselled to finish his Bactrim and Keflex. Discharge Plan Discharge Clinical Impression: Abscess Patient Disposition: Home, Self-Care Instructions: Abscess (ED) Additional Instructions: Please continue your antibiotics and finished them completely. Please keep your appointment with your primary care provider on Sunday, and have him of sauce your abscess to determine if you need to be seen by General surgery. Please return to the emergency room if you have fevers, if possible Juan's and drains from the wound, if you have worsening redness of your scanned, or for any other new or concerning symptoms Contin?e con michael antibi?ticos y term?nelos por completo. Acuda a west miguel angel con west m?dico de cabecera el viernes y p?arnie que le ayude a shereen west absceso para determinar si necesita ser atendido por cirug?a general. Regrese a la portia de emergencias si tiene fiebre, si es posible enfermedad de Juan y secreciones de la herida, si el enrojecimiento de west escaneo empeora, o por cualquier otro s?ntoma nuevo o preocupante. Prescriptions: No Action omeprazole 20 mg capsule,delayed release(DR/EC) 20 mg PO BID Qty: 60 RF: 0 oxycodone-acetaminophen [Percocet] 5-325 mg tablet 1 tab PO TID PRN (Reason: pain) Qty: 9 RF: 0 ondansetron HCl [Zofran] 4 mg tablet 4 mg PO Q6H PRN (Reason: pain) Qty: 8 RF: 0 sulfamethoxazole-trimethoprim [Bactrim DS] 800-160 mg tablet 1 tab PO Q12H Qty: 20 RF: 0 cephalexin 500 mg capsule 500 mg PO Q8H 10 Days Qty: 30 RF: 0 naproxen [Naprosyn] 500 mg tablet 500 mg PO BID PRN (Reason: pain) Qty: 20 RF: 0 insulin lispro [Humalog Arnaldo KwikPen U-100] 100 unit/mL insulin pen, half- unit 10.5 unit subcut BEDTIME RF: 0 Lantus Solostar U-100 Insulin 100 unit/mL (3 mL) insulin pen 10 unit subcut BID RF: 0 pioglitazone 45 mg tablet 45 mg PO DAILY RF: 0 Print Language: Latvian
== END 2020-12-06 10:02 | disposition home or self-care (01) ==
PROVIDERS: Emergency Provider Emergency Medicine; PCP Internal Medicine
DX: L02.413 Cutaneous abscess of right upper limb (principal); F11.10 Opioid abuse, uncomplicated; Z21 Asymptomatic human immunodeficiency virus [HIV] infection status; Z79.899 Other long term (current) drug therapy; Z48.1 Encounter for planned postprocedural wound closure
CPT/HCPCS: 99283

== ENCOUNTER → 2020-12-15 10:25 | Outpatient (BNVA) | payer MEDICAID, SELFPAY | PROVIDERS: PCP Internal Medicine; Visit Provider Surgery | DX: L02.419 Cutaneous abscess of limb, unspecified (principal) | CPT/HCPCS: 99212 ==

== ENCOUNTER 2021-05-18 03:47 | Emergency (ER) | payer MEDICARE, MEDICAID, SELFPAY ==
--- NOTE | ~2021-05-18 | XR_ITS ---
EXAMINATION: XR CHEST CLINICAL INFORMATION: Shortness of breath COMPARISON: Previous chest x-ray February 2014 TECHNIQUE: Frontal view of the chest was obtained. FINDINGS: The cardiac and mediastinal contours are normal. The lungs are clear. There is no pleural effusion or pneumothorax. There is mild curvature of the lower thoracic spine to the right. XR/XR chest 1V IMPRESSION: No evidence for acute disease in the chest.
[2021-05-18 03:57] VITALS: BP 130/80; PULSE 98; O2SAT 98
[2021-05-18 04:10] VITALS: BP 184/86; PULSE 86; RESP 15; TEMP 37; O2SAT 96; BMI 22.2
[2021-05-18 05:01] LABS: MANUAL DIFF FLAG NO
[2021-05-18 05:02] LABS: Appearance Urine CLEAR; Color Urine STRAW; Glucose Urine UA >=1000 MG/DL (NEG); Hematocrit 38.2 % (42.0-52.0); Imm Gran Abs Auto 0.03 X10*3/uL (0.00-0.03); Imm Gran Pct Auto 0.4 % (0.0-0.4); Leukocyte Esterase Urine NEG (NEG); Lymphocytes Absolute Auto 0.6 X10*3/uL (1.2-4.9); Lymphocytes Percent Auto 8.3 % (20-40); Mean Corpuscular HGB Conc 31.4 g/dl (31.0-36.0); Mean Corpuscular Hemoglobin 24.4 pg (27.0-33.0); Mean Corpuscular Volume 77.8 fL (80.0-98.0); Mean Platelet Volume 9.5 fL (9.4-12.4); Monocytes Absolute Auto 0.4 X10*3/uL (0.1-1.2); Monocytes Percent Auto 6.3 % (2-11); Neutrophils Absolute Auto 5.9 x10*3/uL (2.0-8.3); Nitrite Urine NEG (NEG); PH 5.5 (5.0-8.0); Platelet Count 181 X10*3/uL (160-400); Red Blood Count 4.91 X10*6/uL (4.60-5.80); Red Cell Distribution Width 14.6 % (11.0-16.0); Specific Gravity - Urine 1.015 (1.005-1.025); UACC Culture Trigger NO; Urine Blood 1+ (NEG); Urine Ketones 40 MG/DL (NEG); Urine Protein 1+ MG/DL (NEG-TRACE)
[2021-05-18 05:11] LABS: COVID-19 Test Positive (Negative)
[2021-05-18 05:24] LABS: Alanine Aminotransferase 20 U/L (0-40); Albumin Level 3.4 g/dL (3.5-5.0); Alkaline Phosphatase 88 U/L (39-117); Anion Gap 21 (12-20); Aspartate Amino Transferase 27 U/L (5-37); Bilirubin Total 0.5 mg/dL (0.0-1.0); Blood Urea Nitrogen 29 mg/dL (9-16); Calcium 9.7 mg/dL (8.4-10.2); Carbon Dioxide 25 mmol/L (22-29); Chloride 93 mmol/L (96-108); Creatinine Clr Calc Pharmacy 66.8; Estimated Glomerular Filt Rate > 60; Glucose Random 451 mg/dL (60-115); Potassium 4.9 mmol/L (3.3-5.1); Sodium 134 mmol/L (135-145); Total Protein 7.9 g/dL (6.5-8.0)
--- NOTE | 2021-05-18 05:25 | ED.GENADULT ---
HPI - General Adult General Chief complaint: General Medical Stated complaint: SOB Time Seen by Provider: 05/18/21 05:25 History of Present Illness HPI narrative: Patient is a 65-year-old male with a history of HIV. History of diabetes. Patient has been compliant with his medication. Got COVID vaccine x2 shots. Presents today with generalized malaise weakness for the last 2 days. Patient had minimal coughing. Feels achy all over. No nausea no vomiting or diarrhea but decreased appetite. Patient from home. Been compliant with his medication. Claims his CD4 count is good viral load is undetectable and he has been compliant with his medications. Baseline is on insulin. Dose of insulin is not changed. Related Data Home Medications Medication Instructions Recorded Confirmed insulin glargine 100 unit/mL (3 10 unit SUBCUT BID 04/14/20 12/15/20 mL) subcutaneous pen (Lantus Solostar U-100 Insulin) insulin lispro 100 unit/mL 10.5 unit SUBCUT BEDTIME 04/14/20 12/15/20 subcutaneous half-unit pen (Humalog Arnaldo KwikPen (U-100)) pioglitazone 45 mg tablet 45 mg PO DAILY 04/14/20 12/15/20 Previous Rx's Medication Instructions Recorded ondansetron HCl 4 mg tablet 4 mg PO Q6H PRN #8 tab 04/12/20 (Zofran) oxycodone-acetaminophen 5 mg-325 1 tab PO TID PRN #9 tab 04/12/20 mg tablet (Percocet) omeprazole 20 mg capsule,delayed 20 mg PO BID #60 cap 04/15/20 release cephalexin 500 mg capsule 500 mg PO Q8H 10 Days #30 cap 11/27/20 naproxen 500 mg tablet (Naprosyn) 500 mg PO BID PRN #20 tab 11/27/20 sulfamethoxazole 800 1 tab PO Q12H #20 tab 11/27/20 mg-trimethoprim 160 mg tablet (Bactrim DS) Allergies Allergy/AdvReac Type Severity Reaction Status Date / Time No Known Allergies Allergy Verified 12/15/20 11:12 [No Known Allergies*] Review of Systems Review of Systems: Positive generalized malaise weakness Positive decreased p.o. intake Minimal coughing All system reviewed otherwise negative PMFSH Past Medical History Attestation statement: The following information was validated with the patient. Medical History Abscess of antecubital fossa Diabetes Gallstone HIV (human immunodeficiency virus infection) Methadone use Surgical History S/P appendectomy Social History Social History Alcohol intake: never Patient Tobacco Use Status: Never used Tobacco Use of substances other than those prescribed or required for medical reasons: No Substance Use Type: Heroin Advance Directives: No Physical Exam Vital Signs: Vital Signs: Last Vital Signs Temp 98.6 F 05/18/21 06:00 Pulse 85 05/18/21 06:00 Resp 15 05/18/21 06:00 BP 189/87 H 05/18/21 06:00 Pulse Ox 96 05/18/21 06:00 BMI result Body Mass Index 22.2 Appearance: Alert. Oriented X3. No acute distress. Eyes: Pupils equal, round and reactive to light. ENT: Pharynx normal. Neck: Normal inspection. Neck supple. No lymph nodes noted. No crepitus CVS: Normal heart rate and rhythm. Pulses normal. Normal S1 and S2 Respiratory: No respiratory distress. Breath sounds normal. No Wheezing. No rales Abdomen: Soft and nontender. No rigidity. No distention. good BS x4 Skin: Skin warm and dry. Normal skin color. Normal skin turgor. Extremities: No lower extremity edema. Neurovascular intact to all extremities. No Lacerations. No Rash Neuro: Oriented X 3. No motor deficit. No sensory deficit. Moving all extermities. No slurred speech Medical Decision Making MDM Narrative Medical decision making narrative: Fair appearing positive decreased p.o. intake generalized malaise. Patient's COVID test came back positive likely the cause of patient's symptoms. He did receive the vaccine he does have multiple risk factors including history of HIV but his CD4 count is good. Patient's O2 sat was 90% on room air. His electrolyte was checked. His sugar was greater than 400 with a slight anion gap. Will go ahead and give IV fluid insulin. Will recheck electrolytes after the IV fluids. Will monitor carefully. Currently in stable condition. Lab Data Result diagrams: 05/18/21 04:44 01/19/22 05:51 Labs: Lab Results 05/18/21 05/18/21 05/18/21 Range/Units 04:44 04:44 04:44 WBC 7.0 (4.8-10.8) X10*3/uL RBC 4.91 (4.60-5.80) X10*6/uL Hgb 12.0 L (14.0-18.0) g/dl Hct 38.2 L (42.0-52.0) % MCV 77.8 L (80.0-98.0) fL MCH 24.4 L (27.0-33.0) pg MCHC 31.4 (31.0-36.0) g/dl RDW 14.6 (11.0-16.0) % Plt Count 181 (160-400) X10*3/uL MPV 9.5 (9.4-12.4) fL Immature Gran % (Auto) 0.4 (0.0-0.4) % Neut % (Auto) 85.0 H (45-73) % Lymph % (Auto) 8.3 L (20-40) % [place] % (Auto) 6.3 (2-11) % Eos % (Auto) 0.0 (0-4) % Baso % (Auto) 0.0 (0-2) % Lymph # (Auto) 0.6 L (1.2-4.9) X10*3/uL [place] # (Auto) 0.4 (0.1-1.2) X10*3/uL Eos # (Auto) 0.0 (0.0-0.4) X10*3/uL Baso # (Auto) 0.0 (0.0-0.2) X10*3/uL Abs Immat Gran (auto) 0.03 (0.00-0.03) X10*3/uL Absolute Neuts (auto) 5.9 (2.0-8.3) x10*3/uL Absolute Nucleated RBC 0.000 (0.0-0.012) X10*3/uL Nucleated RBC % (auto) 0.0 (0.0-0.2) /100WBC VBG pH (7.32-7.43) VBG pCO2 mmHg VBG pO2 mmHg VBG HCO3 (22-26) mmol/L VBG O2 Saturation % VBG Base Excess mmol/L Sodium 134 L (135-145) mmol/L Potassium 4.9 (3.3-5.1) mmol/L Chloride 93 L (96-108) mmol/L Carbon Dioxide 25 (22-29) mmol/L Anion Gap 21 H (12-20) BUN 29 H (9-16) mg/dL Creatinine 1.11 (0.5-1.4) mg/dL Estim Creat Clear Calc 66.8 Estimated GFR > 60 Random Glucose 451 H* (60-115) mg/dL Calcium 9.7 (8.4-10.2) mg/dL Total Bilirubin 0.5 (0.0-1.0) mg/dL AST 27 D (5-37) U/L ALT 20 (0-40) U/L Alkaline Phosphatase 88 D (39-117) U/L Total Protein 7.9 (6.5-8.0) g/dL Albumin 3.4 L (3.5-5.0) g/dL Urine Color Urine Appearance Urine pH (5.0-8.0) Ur Specific [place] (1.005-1.025) Urine Protein (NEG-TRACE) MG/DL Urine Glucose (UA) (NEG) MG/DL Urine Ketones (NEG) MG/DL Urine Blood (NEG) Urine Nitrite (NEG) Ur Leukocyte Esterase (NEG) Urine RBC (0) /HPF Urine WBC (0-4) /HPF Ur Squamous Epith Cells /LPF Urine Bacteria /LPF Urine Mucus /LPF Acetone, Qual Negative (Negative) COVID-19 (YAEL) Positive A (Negative) COVID-19 Clin Com See Note 05/18/21 05/18/21 05/18/21 Range/Units 04:44 05:51 05:57 WBC (4.8-10.8) X10*3/uL RBC (4.60-5.80) X10*6/uL Hgb (14.0-18.0) g/dl Hct (42.0-52.0) % MCV (80.0-98.0) fL MCH (27.0-33.0) pg MCHC (31.0-36.0) g/dl RDW (11.0-16.0) % Plt Count (160-400) X10*3/uL MPV (9.4-12.4) fL Immature Gran % (Auto) (0.0-0.4) % Neut % (Auto) (45-73) % Lymph % (Auto) (20-40) % [place] % (Auto) (2-11) % Eos % (Auto) (0-4) % Baso % (Auto) (0-2) % Lymph # (Auto) (1.2-4.9) X10*3/uL [place] # (Auto) (0.1-1.2) X10*3/uL Eos # (Auto) (0.0-0.4) X10*3/uL Baso # (Auto) (0.0-0.2) X10*3/uL Abs Immat Gran (auto) (0.00-0.03) X10*3/uL Absolute Neuts (auto) (2.0-8.3) x10*3/uL Absolute Nucleated RBC (0.0-0.012) X10*3/uL Nucleated RBC % (auto) (0.0-0.2) /100WBC VBG pH 7.40 (7.32-7.43) VBG pCO2 33 mmHg VBG pO2 65 mmHg VBG HCO3 20 L (22-26) mmol/L VBG O2 Saturation 89.0 % VBG Base Excess -3.0 mmol/L Sodium 133 L (135-145) mmol/L Potassium 5.2 H (3.3-5.1) mmol/L Chloride 92 L (96-108) mmol/L Carbon Dioxide 22 (22-29) mmol/L Anion Gap 24 H (12-20) BUN 29 H (9-16) mg/dL Creatinine 1.11 (0.5-1.4) mg/dL Estim Creat Clear Calc 66.8 Estimated GFR > 60 Random Glucose 412 H* (60-115) mg/dL Calcium 9.9 (8.4-10.2) mg/dL Total Bilirubin (0.0-1.0) mg/dL AST (5-37) U/L ALT (0-40) U/L Alkaline Phosphatase (39-117) U/L Total Protein (6.5-8.0) g/dL Albumin (3.5-5.0) g/dL Urine Color STRAW Urine Appearance CLEAR Urine pH 5.5 (5.0-8.0) Ur Specific [place] 1.015 (1.005-1.025) Urine Protein 1+ H (NEG-TRACE) MG/DL Urine Glucose (UA) >=1000 H (NEG) MG/DL Urine Ketones 40 (NEG) MG/DL Urine Blood 1+ H (NEG) Urine Nitrite NEG (NEG) Ur Leukocyte Esterase NEG (NEG) Urine RBC 0-2 (0) /HPF Urine WBC 0 (0-4) /HPF Ur Squamous Epith Cells TRACE /LPF Urine Bacteria NONE /LPF Urine Mucus TRACE /LPF Acetone, Qual (Negative) COVID-19 (YAEL) (Negative) COVID-19 Clin Com Discharge Plan Discharge Clinical Impression: HIV (human immunodeficiency virus infection), Diabetes, COVID-19 Patient Disposition: Still a Patient Instructions: Managing Diabetes During Sick Days (ED), Diabetes and Nutrition (ED), COVID-19 (Coronavirus Disease 2019) (ED) Prescriptions: No Action omeprazole 20 mg capsule,delayed release(DR/EC) 20 mg PO BID Qty: 60 RF: 0 oxycodone-acetaminophen [Percocet] 5-325 mg tablet 1 tab PO TID PRN (Reason: pain) Qty: 9 RF: 0 ondansetron HCl [Zofran] 4 mg tablet 4 mg PO Q6H PRN (Reason: pain) Qty: 8 RF: 0 sulfamethoxazole-trimethoprim [Bactrim DS] 800-160 mg tablet 1 tab PO Q12H Qty: 20 RF: 0 cephalexin 500 mg capsule 500 mg PO Q8H 10 Days Qty: 30 RF: 0 naproxen [Naprosyn] 500 mg tablet 500 mg PO BID PRN (Reason: pain) Qty: 20 RF: 0 insulin lispro [Humalog Arnaldo KwikPen U-100] 100 unit/mL insulin pen, half-unit 10.5 unit subcut BEDTIME RF: 0 Lantus Solostar U-100 Insulin 100 unit/mL (3 mL) insulin pen 10 unit subcut BID RF: 0 pioglitazone 45 mg tablet 45 mg PO DAILY RF: 0 Referrals: Physician,Unknown J [Primary Care Provider] - 2 days Print Language: Ivorian
[2021-05-18 05:36] LABS: Mucus Urine TRACE /LPF; RBC Urine 0-2 /HPF (0); Squamous Epithelial Cell Urine TRACE /LPF; WBC Urine 0 /HPF (0-4)
[2021-05-18 05:55] LABS: Acetone, serum QL Negative (Negative)
[2021-05-18 06:00] VITALS: BP 189/87; PULSE 85; RESP 15; TEMP 37; O2SAT 96
[2021-05-18 06:05] LABS: Venous Blood Gas Refer to POC result
[2021-05-18 06:06] LABS: VBG HCO3 20 mmol/L (22-26); VBG pCO2 33 mmHg; VBG pO2 65 mmHg
[2021-05-18] MEDS: 0.9 % Sodium Chloride 1,000 ML 999 ML IV ×2 (06:12→06:13)
[2021-05-18] MEDS: Insulin Regular, Human 100 UNIT/ML 3 ML VIAL 7 UNIT IVPUSH (06:17)
[2021-05-18 06:23] LABS: Anion Gap 24 (12-20); Blood Urea Nitrogen 29 mg/dL (9-16); Calcium 9.9 mg/dL (8.4-10.2); Carbon Dioxide 22 mmol/L (22-29); Chloride 92 mmol/L (96-108); Creatinine Clr Calc Pharmacy 66.8; Estimated Glomerular Filt Rate > 60; Glucose Random 412 mg/dL (60-115); Potassium 5.2 mmol/L (3.3-5.1); Sodium 133 mmol/L (135-145)
[2021-05-18 08:13] VITALS: BP 172/89; PULSE 76; RESP 18; O2SAT 96
[2021-05-18 08:22] LABS: Glucose, Whole Blood 288 mg/dL (60-115)
[2021-05-18 11:12] LABS: Anion Gap 18 (12-20); Blood Urea Nitrogen 25 mg/dL (9-16); Calcium 8.6 mg/dL (8.4-10.2); Carbon Dioxide 21 mmol/L (22-29); Chloride 102 mmol/L (96-108); Creatinine Clr Calc Pharmacy 86.2; Estimated Glomerular Filt Rate > 60; Glucose Random 281 mg/dL (60-115); Potassium 4.4 mmol/L (3.3-5.1); Sodium 137 mmol/L (135-145)
== END 2021-05-18 12:10 | disposition home or self-care (01) ==
PROVIDERS: Emergency Medicine Emergency Medical Services; Emergency Provider Emergency Medicine
DX: U07.1 COVID-19 (principal); R06.02 Shortness of breath; E11.9 Type 2 diabetes mellitus without complications; Z21 Asymptomatic human immunodeficiency virus [HIV] infection status; Z79.899 Other long term (current) drug therapy
CPT/HCPCS: 36415; 71045; 80048; 80053; 81001; 82009; 82803; 82947; 85025; 87635; 96361; 96374; 99284

== ENCOUNTER 2022-01-09 09:22 | Emergency (ER) | payer MEDICARE, MEDICAID, SELFPAY ==
[2022-01-09 09:49] VITALS: BP 170/74; PULSE 83; RESP 18; TEMP 36.6; O2SAT 97; BMI 22.4
--- NOTE | 2022-01-09 11:20 | ED.EAR ---
HPI - Ear Problem General Chief complaint: Ear Problems Stated complaint: fb r ear Time Seen by Provider: 01/09/22 10:34 Source: patient Mode of arrival: ambulatory Limitations: language barrier History of Present Illness HPI Narrative: Patient presents emergency department for evaluation of fullness to the right ear. He states this is been ongoing for 2-3 months. We visit with his primary care doctor who provided him with some drops that he placed into the ear, but his symptoms did not go away. Denies pain, ringing of the ear, sore throat, headache, dizziness, lightheadedness. Reports that he has inserted Q-tips into the canal previously to try and remove something from the ear but was unsuccessful. Has not been using any of the drops previously prescribed for at least 2 weeks. Related Data Home Medications Medication Instructions Recorded Confirmed insulin glargine 100 unit/mL (3 10 unit subcut BID 04/14/20 12/15/20 mL) subcutaneous pen (Lantus Solostar U-100 Insulin) insulin lispro 100 unit/mL 10.5 unit subcut BEDTIME 04/14/20 12/15/20 subcutaneous half-unit pen (Humalog Arnaldo KwikPen (U-100)) pioglitazone 45 mg tablet 45 mg PO DAILY 04/14/20 12/15/20 Previous Rx's Medication Instructions Recorded ondansetron HCl 4 mg tablet 4 mg PO Q6H PRN pain #8 tabs 04/12/20 (Zofran) oxycodone-acetaminophen 5 mg-325 1 tab PO TID PRN pain #9 tabs 04/12/20 mg tablet (Percocet) omeprazole 20 mg capsule,delayed 20 mg PO BID #60 caps 04/15/20 release cephalexin 500 mg capsule 500 mg PO Q8H 10 days #30 caps 11/27/20 naproxen 500 mg tablet (Naprosyn) 500 mg PO BID PRN pain #20 tabs 11/27/20 sulfamethoxazole 800 1 tab PO Q12H #20 tabs 11/27/20 mg-trimethoprim 160 mg tablet (Bactrim DS) ciprofloxacin 0.2 %-hydrocortisone 3 drp otic (ears) Q12H 7 days #10 01/09/22 1 % ear drops,suspension (Cipro HC) mL Allergies Allergy/AdvReac Type Severity Reaction Status Date / Time No Known Allergies Allergy Verified 12/15/20 11:12 [No Known Allergies*] Review of Systems Review of Systems: Constitutional: No weight loss, fever, chills, weakness or fatigue. Skin: No rash or itching. Ear: Positive fullness to right ear Cardiovascular: No chest pain, Respiratory: No shortness of breath, or cough Gastrointestinal: No nausea, vomiting or diarrhea. No abdominal pain Genitourinary: No burning micturition. No urinary frequency or incontinence. Musculoskeletal: No muscle pain, back pain, joint pain or stiffness. Psychiatric: No depression or anxiety. Yes all other systems are reviewed and are negative FORMERLY [facility], [facility] Past Medical History Attestation statement: The following information was validated with the patient. Source: old records reviewed Medical History (Reviewed 01/09/22 @ 11: by Maranda Bridges CNP) Abscess of antecubital fossa Diabetes Gallstone HIV (human immunodeficiency virus infection) Methadone use Surgical History S/P appendectomy Social History Social History Alcohol intake: never Patient Tobacco Use Status: Never used Tobacco Substance Use Type: Heroin Advance Directives: No Advance Directives Information Provided: No Physical Exam Vital Signs: Vital Signs: Last Vital Signs Temp 98 F 01/09/22 09:49 Pulse 83 01/09/22 09:49 Resp 18 01/09/22 09:49 BP 170/74 H 01/09/22 09:49 Pulse Ox 97 01/09/22 09:49 O2 Del Method 01/09/22 09:49 BMI result Body Mass Index 22.4 Appearance: Alert.?Oriented to person, place and time. No acute distress.?Normal affect. Eyes: Sclera white, conjunctiva pink. PERRL, 3 mm bilaterally. Ears: Left ear canal clear, TM visible with good cone of light.? Right ear canal obstructived, white/yellow impaction. No pre or postauricular tenderness, tenderness upon palpation of the tragus or auricle. Neck: Normal inspection.? Neck supple.?? CVS: Heart sounds normal. Normal heart rate and rhythm.? Pulses normal.?? Respiratory: No respiratory distress.? Lung sounds clear to auscultation bilaterally?? Abdomen: Soft and non-tender. Skin: Skin warm and dry.? Normal skin color.? Extremities: No lower extremity edema.? Neuro: Moves all extremities spontaneously. Sensation intact bilaterally. No motor deficits. Ambulates with normal steady gait. Course Course Course Narrative: Patient is a 66-year-old male who presents emergency department for evaluation of ongoing fullness to the right ear. He is overall well appearing, vital signs stable. Left ear canal is clear with intact tympanic membrane. Right ear canal unable to visualize tympanic membrane, yellow/white impaction, appears most consistent with cerumen, although may also be an otitis externa. Attempted to irrigate with normal saline and hydrogen peroxide, unsuccessful in removing impaction. A curette was utilized unable to remove a small amount of yellow/white soft discharge, but unable to adequately visualize any deeper for removal. Discussed plan of care with patient. Will treat with Cipro-hydrocortisone otic drops, and provide contact information for ENT for further follow-up. Patient verbalized understanding. Reviewed worrisome signs and symptoms to return back to the emergency department for. All questions were answered, patient was discharged home in stable condition. Discharge Plan Discharge Clinical Impression: Impacted cerumen, right ear Patient Disposition: Home, Self-Care Additional Instructions: As we discussed it appears to be wax that is impacted in your ear canal, however there may be an infectious cause to this as well You have been given a new prescription for ear drops insert to right ear 3 drops twice a day, every 12 hours. Avoid inserting anything in to the ear, this may further impact the ear. You will need to contact the ENT specialist to arrange for follow-up. You may also follow-up with your primary care provider. Return to the emergency department any new or worsening symptoms or concerns. Prescriptions: New Cipro HC 0.2-1 % drops,suspension 3 drp otic (ears) Q12H 7 Days Qty: 10 0RF No Action omeprazole 20 mg capsule,delayed release(DR/EC) 20 mg PO BID Qty: 60 0RF oxycodone-acetaminophen [Percocet] 5-325 mg tablet 1 tab PO TID PRN (Reason: pain) Qty: 9 0RF ondansetron HCl [Zofran] 4 mg tablet 4 mg PO Q6H PRN (Reason: pain) Qty: 8 0RF sulfamethoxazole-trimethoprim [Bactrim DS] 800-160 mg tablet 1 tab PO Q12H Qty: 20 0RF cephalexin 500 mg capsule 500 mg PO Q8H 10 Days Qty: 30 0RF naproxen [Naprosyn] 500 mg tablet 500 mg PO BID PRN (Reason: pain) Qty: 20 0RF insulin lispro [Humalog Arnaldo KwikPen U-100] 100 unit/mL insulin pen, half-unit 10.5 unit subcut BEDTIME Lantus Solostar U-100 Insulin 100 unit/mL (3 mL) insulin pen 10 unit subcut BID pioglitazone 45 mg tablet 45 mg PO DAILY Interventions: ED Discharge Assessment Last Done: 01/09/22 11:47 Discharge Date/Time: 01/09/22 11:48
== END 2022-01-09 11:48 | disposition home or self-care (01) ==
PROVIDERS: Emergency Provider Emergency Medicine; PCP Student in an Organized Health Care Education/Training Program
DX: H61.21 Impacted cerumen, right ear (principal); E11.9 Type 2 diabetes mellitus without complications; B20 Human immunodeficiency virus [HIV] disease; F11.20 Opioid dependence, uncomplicated; Z79.4 Long term (current) use of insulin; Z79.899 Other long term (current) drug therapy
CPT/HCPCS: 69210; 99282; 99283

== ENCOUNTER 2022-07-06 06:23 | Emergency (ER) | payer OTHER, SELFPAY ==
--- NOTE | ~2022-07-06 | CT_ITS ---
EXAMINATION: CT ABDOMEN AND PELVIS WITH CONTRAST CLINICAL INFORMATION: Left-sided abdominal pain COMPARISON: None TECHNIQUE: Multidetector volumetric images were obtained from the superior aspect of the liver through the pubic symphysis following administration 85 mL of Omnipaque 350 intravenous contrast. Sagittal and coronal reformatted images were obtained on the technologist's workstation. Oral contrast: No This CT examination was performed using dose optimization techniques as appropriate, variously including the following: *Automated exposure control *Adjustment of mA and/or kV according to patient size (this includes techniques or standardized protocols for targeted exams where dose is matched to indication/reason for exam; i.e. extremities or head) *Use of iterative reconstruction technique DLP: 262 mGy-cm FINDINGS: LUNG BASES: The visualized lung bases are unremarkable. LIVER, GALLBLADDER, AND BILIARY TREE: The liver is normal in size, shape, and attenuation. A small punctate calcification is present in the subcapsular liver. No worrisome solid focal hepatic lesion or biliary ductal dilatation is present. The gallbladder contains small layering gallstones but otherwise is unremarkable with no evidence of pericholecystic inflammatory changes. PANCREAS: Around the uncinate process, some edematous changes are present in the surrounding fat suggesting pancreatitis. These are new findings when compared to the prior study. SPLEEN: Unremarkable. ADRENAL GLANDS: Unremarkable. KIDNEYS AND URETERS: The kidneys are normal in size, shape, and attenuation. No hydronephrosis, hydroureter, or calculi seen. No perinephric stranding. BLADDER: Unremarkable. GASTROINTESTINAL TRACT: The small and large bowel are unremarkable. The appendix is not seen with certainty but there is no evidence of appendicitis appendicitis.. ABDOMINAL WALL: No significant hernia is appreciated. LYMPH NODES: No retroperitoneal lymphadenopathy. VASCULAR: Calcific plaque present at the aortic bifurcation aneurysm. PELVIC VISCERA: The prostate and seminal vesicles are unremarkable. OSSEOUS STRUCTURES: Mild scoliosis convex to the right. Degenerative changes are seen at L5-S1. No bony destructive lesions. CT/CT abdomen pelvis w IV con IMPRESSION: 1. Inflammatory changes around the uncinate process of the pancreas suggesting pancreatitis. 2. Cholelithiasis without cholecystitis. 3. Other incidental findings as described above. Fleischner guidelines were followed.
[2022-07-06 06:29] VITALS: BP 156/83; PULSE 90; RESP 16; TEMP 37.2; O2SAT 96; BMI 21.7
--- NOTE | 2022-07-06 06:56 | ED_ITS ---
HPI - Abdominal Pain General Chief Complaint: Abdominal Pain Stated Complaint: Abd Pain Time Seen by Provider: 07/06/22 06:40 History of Present Illness HPI narrative: Patient is a 67-year-old male with a history of HIV history of diabetes previous history of heroin use currently on methadone. Status post appendectomy presented today with having abdominal pain on the left side. The pain is dull in nature sudden onset over the last 24 hours. Patient's last bowel movement about 2 days ago. No fever no chills no nausea no vomiting. Patient received his dose of methadone this morning. No coughing or congestion or upper respiratory symptoms. Vaccinated for COVID Related Data Home Medications Medication Instructions Recorded Confirmed insulin glargine 100 unit/mL (3 10 unit subcut BID 04/14/20 12/15/20 mL) subcutaneous pen (Lantus Solostar U-100 Insulin) insulin lispro 100 unit/mL 10.5 unit subcut BEDTIME 04/14/20 12/15/20 subcutaneous half-unit pen (Humalog Arnaldo KwikPen (U-100)) pioglitazone 45 mg tablet 45 mg PO DAILY 04/14/20 12/15/20 Previous Rx's Medication Instructions Recorded ondansetron HCl 4 mg tablet 4 mg PO Q6H PRN pain #8 tabs 04/12/20 (Zofran) oxycodone-acetaminophen 5 mg-325 1 tab PO TID PRN pain #9 tabs 04/12/20 mg tablet (Percocet) omeprazole 20 mg capsule,delayed 20 mg PO BID #60 caps 04/15/20 release cephalexin 500 mg capsule 500 mg PO Q8H 10 days #30 caps 11/27/20 naproxen 500 mg tablet (Naprosyn) 500 mg PO BID PRN pain #20 tabs 11/27/20 sulfamethoxazole 800 1 tab PO Q12H #20 tabs 11/27/20 mg-trimethoprim 160 mg tablet (Bactrim DS) ciprofloxacin 0.2 %-hydrocortisone 3 drp otic (ears) Q12H 7 days #10 01/09/22 1 % ear drops,suspension (Cipro HC) mL Allergies Allergy/AdvReac Type Severity Reaction Status Date / Time No Known Allergies Allergy Verified 07/06/22 06:29 [No Known Allergies*] Review of Systems Review of Systems No fever no chills positive abdominal pain Yes all other systems are reviewed and are negative FORMERLY [facility], [facility] Past Medical History Attestation statement: The following information was validated with the patient. Medical History Abscess of antecubital fossa Diabetes Gallstone HIV (human immunodeficiency virus infection) Methadone use Surgical History S/P appendectomy Social History Social History Alcohol intake: never Patient Tobacco Use Status: Never used Tobacco Smoked in Last 30 Days: No Use of substances other than those prescribed or required for medical reasons: No Substance Use Type: Heroin Advance Directives: No Advance Directives Information Provided: Yes Physical Exam ED Vital Signs: Vital Signs - 24 hr 07/06/22 06:29 07/06/22 08:26 07/06/22 09:56 Temperature 99 F Pulse Rate 90 73 67 Respiratory Rate 16 16 16 Blood Pressure 156/83 H 165/71 H 182/99 H Pulse Oximetry 96 98 98 Oxygen Delivery Method Room Air Room Air Room Air BMI result Body Mass Index 21.7 Appearance: Alert. Oriented X3. No acute distress. Eyes: Pupils equal, round and reactive to light. ENT: Pharynx normal. Neck: Normal inspection. Neck supple. No lymph nodes noted. No crepitus CVS: Normal heart rate and rhythm. Pulses normal. Normal S1 and S2 Respiratory: No respiratory distress. Breath sounds normal. No Wheezing. No rales Abdomen: Soft, positive left-sided abdominal pain. No rigidity. No distention. good BS x4 Skin: Skin warm and dry. Normal skin color. Normal skin turgor. Extremities: No lower extremity edema. Neurovascular intact to all extremities. No Lacerations. No Rash Neuro: Oriented X 3. No motor deficit. No sensory deficit. Moving all exter mities. No slurred speech Medical Decision Making Medical Decision Making MDM Narrative: Positive abdominal pain. Worsened the left side. Patient LFTs are normal. Lipase is normal. There is no evidence for biliary disease. There is no evidence for pancreatitis. Patient's sugar was elevated. However on recheck now it is down to 200. There is no evidence to suggest patient had DKA. Patient has a normal anion gap. Normal bicarb. CT scan of the abdomen pelvis was done. There is no evidence for kidney stone. There is no evidence for obstruction. There is no evidence for abscess perforation. There is no evidence for diverticulitis. There is questionable inflammation around the kim creas. This will need follow-up on an outpatient basis. In the setting of having a normal lipase unlikely to have pancreatitis. Patient is in stable condition. He is hungry. Will discharge patient home. Close follow-up on an outpatient basis. Patient's urine showed no signs of infection.. Differential Diagnosis UTI, obstruction, abscess, perforation, diverticulitis Admission/Observation Consideration of admission/observation: Escalation of care including admission/observation considered Lab Data MDM Lab Attestation statement: I reviewed the patient's lab results. 07/06/22 07:12 07/06/22 07:12 Labs: Lab Results 07/06/22 07/06/22 07/06/22 Range/Units 07:12 07:12 07:12 WBC 5.7 (4.8-10.8) X10*3/uL RBC 5.15 (4.60-5.80) X10*6/uL Hgb 13.3 L (14.0-18.0) g/dl Hct 40.6 L (42.0-52.0) % MCV 78.8 L (80.0-98.0) fL MCH 25.8 L (27.0-33.0) pg MCHC 32.8 (31.0-36.0) g/dl RDW 13.2 (11.0-16.0) % Plt Count 186 (160-400) X10*3/uL MPV 10.2 (9.4-12.4) fL Immature Gran % (Auto) 0.2 (0.0-0.4) % Neut % (Auto) 70.5 (45-73) % Lymph % (Auto) 20.1 (20-40) % Bullock % (Auto) 8.3 (2-11) % Eos % (Auto) 0.5 (0-4) % Baso % (Auto) 0.4 (0-2) % Lymph # (Auto) 1.1 L (1.2-4.9) X10*3/uL Bullock # (Auto) 0.5 (0.1-1.2) X10*3/uL Eos # (Auto) 0.0 (0.0-0.4) X10*3/uL Baso # (Auto) 0.0 (0.0-0.2) X10*3/uL Abs Immat Gran (auto) 0.01 (0.00-0.03) X10*3/uL Absolute Neuts (auto) 4.0 (2.0-8.3) x10*3/uL Absolute Nucleated RBC 0.000 (0.0-0.012) X10*3/uL Nucleated RBC % (auto) 0.0 (0.0-0.2) /100WBC Sodium 136 (135-145) mmol/L Potassium 4.4 (3.3-5.1) mmol/L Chloride 97 (96-108) mmol/L Carbon Dioxide 31 H (22-29) mmol/L Anion Gap 12 (12-20) BUN 25 H (9-16) mg/dL Creatinine 0.94 (0.5-1.4) mg/dL Estim Creat Clear Calc 79.3 Estimated GFR > 60 POC Glucose (60-115) mg/dL Random Glucose 338 H (60-115) mg/dL Calcium 9.2 D (8.4-10.2) mg/dL Total Bilirubin 0.4 (0.0-1.0) mg/dL Direct Bilirubin < 0.2 (0.0-0.5) mg/dL AST 22 (5-37) U/L ALT 15 (0-40) U/L Alkaline Phosphatase 91 (39-117) U/L Total Protein 7.6 (6.5-8.0) g/dL Albumin 3.8 (3.5-5.0) g/dL Lipase 32 (8-78) U/L Urine Color Yellow Urine Appearance Clear Urine pH 6.0 (5.0-9.0) Ur Specific [place]mb[place] >= 1.030 H (1.005-1.025) Urine Protein 100 (2+) H (Neg-Trace) mg/dL Urine Glucose (UA) >=1000 H (Negative) mg/dL Urine Ketones Trace (Negative) mg/dL Urine Blood Negative (Negative) Urine Nitrite Negative (Negative) Ur Leukocyte Esterase Negative (Negative) Urine RBC 0-2 (0-2) /HPF Urine WBC 0-5 (0-5) /HPF Ur Squamous Epith Cells 0-2 (0-2) /HPF Urine Bacteria None Seen (None Seen) Hyaline Casts 0-2 (0-2) /LPF 07/06/22 Range/Units 10:42 WBC (4.8-10.8) X10*3/uL RBC (4.60-5.80) X10*6/uL Hgb (14.0-18.0) g/dl Hct (42.0-52.0) % MCV (80.0-98.0) fL MCH (27.0-33.0) pg MCHC (31.0-36.0) g/dl RDW (11.0-16.0) % Plt Count (160-400) X10*3/uL MPV (9.4-12.4) fL Immature Gran % (Auto) (0.0-0.4) % Neut % (Auto) (45-73) % Lymph % (Auto) (20-40) % Bullock % (Auto) (2-11) % Eos % (Auto) (0-4) % Baso % (Auto) (0-2) % Lymph # (Auto) (1.2-4.9) X10*3/uL Bullock # (Auto) (0.1-1.2) X10*3/uL Eos # (Auto) (0.0-0.4) X10*3/uL Baso # (Auto) (0.0-0.2) X10*3/uL Abs Immat Gran (auto) (0.00-0.03) X10*3/uL Absolute Neuts (auto) (2.0-8.3) x10*3/uL Absolute Nucleated RBC (0.0-0.012) X10*3/uL Nucleated RBC % (auto) (0.0-0.2) /100WBC Sodium (135-145) mmol/L Potassium (3.3-5.1) mmol/L Chloride (96-108) mmol/L Carbon Dioxide (22-29) mmol/L Anion Gap (12-20) BUN (9-16) mg/dL Creatinine (0.5-1.4) mg/dL Estim Creat Clear Calc Estimated GFR POC Glucose 200 H (60-115) mg/dL Random Glucose (60-115) mg/dL Calcium (8.4-10.2) mg/dL Total Bilirubin (0.0-1.0) mg/dL Direct Bilirubin (0.0-0.5) mg/dL AST (5-37) U/L ALT (0-40) U/L Alkaline Phosphatase (39-117) U/L Total Protein (6.5-8.0) g/dL Albumin (3.5-5.0) g/dL Lipase (8-78) U/L Urine Color Urine Appearance Urine pH (5.0-9.0) Ur Specific [place] (1.005-1.025) Urine Protein (Neg-Trace) mg/dL Urine Glucose (UA) (Negative) mg/dL Urine Ketones (Negative) mg/dL Urine Blood (Negative) Urine Nitrite (Negative) Ur Leukocyte Esterase (Negative) Urine RBC (0-2) /HPF Urine WBC (0-5) /HPF Ur Squamous Epith Cells (0-2) /HPF Urine Bacteria (None Seen) Hyaline Casts (0-2) /LPF Radiology Impression Discussion of test interpretation with radiology: I have reviewed the radiologist's reading. Radiologist Impression: CT scan grossly show question inflammation around the pancreas. Chronic Conditions Patient?s care impacted by: Diabetes and Hypertension HIV Medications Administered Discontinued Medications Generic Name Dose Route Start Last Admin Trade Name Freq PRN Reason Stop Dose Admin Hydromorphone HCl 0.5 mg 07/06/22 06:54 07/06/22 07:19 Hydromorphone Hcl 0.5 Mg/0.5 Ml Syringe IVPUSH 07/06/22 06:55 0.5 mg ONCE ONE Administration Protocol Sodium Chloride 1,000 mls @ 999 mls/hr 07/06/22 07:00 07/06/22 08:33 Ns IV 07/06/22 08:00 Infused .Q1H1M LUÍS Infusion Iohexol 85 ml 07/06/22 08:40 07/06/22 08:41 Iohexol 350 Mg/Ml 100 Ml Infus..Btl IV 07/06/22 08:41 85 ml ONCE ONE Administration Ondansetron HCl 4 mg 07/06/22 06:54 07/06/22 07:19 Ondansetron Hcl 4 Mg/2 Ml Vial IVPUSH 07/06/22 06:55 4 mg ONCE ONE Administration Discharge Plan Discharge Clinical Impression: Abdominal pain Patient Disposition: Home, Self-Care Instructions: Abdominal Pain (ED), Diabetic Hyperglycemia (ED) Additional Instructions: Nonspecific inflammation was noted new your pancreas. Please follow-up with your doctor on an outpatient basis. Prescriptions: No Action omeprazole 20 mg capsule,delayed release(DR/EC) 20 mg PO BID Qty: 60 0RF oxycodone-acetaminophen [Percocet] 5-325 mg tablet 1 tab PO TID PRN (Reason: pain) Qty: 9 0RF ondansetron HCl [Zofran] 4 mg tablet 4 mg PO Q6H PRN (Reason: pain) Qty: 8 0RF sulfamethoxazole-trimethoprim [Bactrim DS] 800-160 mg tablet 1 tab PO Q12H Qty: 20 0RF cephalexin 500 mg capsule 500 mg PO Q8H 10 Days Qty: 30 0RF naproxen [Naprosyn] 500 mg tablet 500 mg PO BID PRN (Reason: pain) Qty: 20 0RF Cipro HC 0.2-1 % drops,suspension 3 drp otic (ears) Q12H 7 Days Qty: 10 0RF insulin lispro [Humalog Arnaldo KwikPen U-100] 100 unit/mL insulin pen, half- unit 10.5 unit subcut BEDTIME Lantus Solostar U-100 Insulin 100 unit/mL (3 mL) insulin pen 10 unit subcut BID pioglitazone 45 mg tablet 45 mg PO DAILY Referrals: Physician,Unknown J [Primary Care Provider] - (Please follow-up in the next 2 days.) Print Language: Divehi
[2022-07-06] MEDS: 0.9 % Sodium Chloride 1,000 ML 999 ML IV (07:19)
[2022-07-06] MEDS: ondansetron HCL 4 MG/2 ML VIAL IVPUSH (07:19)
[2022-07-06] MEDS: HYDROmorphone HCl 0.5 MG/0.5 ML SYRINGE IVPUSH (07:19)
--- NOTE | 2022-07-06 07:23 | PC.NURSE ---
assumed care of patient, pt in gown, on monitor, IV in place, labs drawn and sent, urine sent, given meds for pain and nausea, fluids infusing, awaiting CT
[2022-07-06 07:27] LABS: MANUAL DIFF FLAG NO
[2022-07-06 07:29] LABS: Basophils Percent Auto 0.4 % (0-2); Eosinophils Percent Auto 0.5 % (0-4); Hematocrit 40.6 % (42.0-52.0); Hemoglobin 13.3 g/dl (14.0-18.0); Imm Gran Abs Auto 0.01 X10*3/uL (0.00-0.03); Imm Gran Pct Auto 0.2 % (0.0-0.4); Lymphocytes Absolute Auto 1.1 X10*3/uL (1.2-4.9); Lymphocytes Percent Auto 20.1 % (20-40); Mean Corpuscular HGB Conc 32.8 g/dl (31.0-36.0); Mean Corpuscular Hemoglobin 25.8 pg (27.0-33.0); Mean Corpuscular Volume 78.8 fL (80.0-98.0); Mean Platelet Volume 10.2 fL (9.4-12.4); Monocytes Absolute Auto 0.5 X10*3/uL (0.1-1.2); Monocytes Percent Auto 8.3 % (2-11); Neutrophils Percent Auto 70.5 % (45-73); Platelet Count 186 X10*3/uL (160-400); Red Blood Count 5.15 X10*6/uL (4.60-5.80); Red Cell Distribution Width 13.2 % (11.0-16.0); White Blood Count 5.7 X10*3/uL (4.8-10.8)
[2022-07-06 07:30] LABS: Appearance Urine Clear; Color Urine Yellow; Glucose Urine UA >=1000 mg/dL (Negative); Leukocyte Esterase Urine Negative (Negative); Nitrite Urine Negative (Negative); Specific Gravity - Urine >= 1.030 (1.005-1.025); UMIC TRIGGER UACC YES; Urine Blood Negative (Negative); Urine Ketones Trace mg/dL (Negative); Urine Protein 100 (2+) mg/dL (Neg-Trace)
[2022-07-06 07:33] LABS: Bacteria Urine None Seen (None Seen); Hyaline Casts Urine 0-2 /LPF (0-2); RBC Urine 0-2 /HPF (0-2); Squamous Epithelial Cell Urine 0-2 /HPF (0-2); WBC Urine 0-5 /HPF (0-5)
[2022-07-06 07:51] LABS: Alanine Aminotransferase 15 U/L (0-40); Albumin Level 3.8 g/dL (3.5-5.0); Alkaline Phosphatase 91 U/L (39-117); Anion Gap 12 (12-20); Aspartate Amino Transferase 22 U/L (5-37); Bilirubin Direct < 0.2 mg/dL (0.0-0.5); Bilirubin Total 0.4 mg/dL (0.0-1.0); Blood Urea Nitrogen 25 mg/dL (9-16); Calcium 9.2 mg/dL (8.4-10.2); Carbon Dioxide 31 mmol/L (22-29); Chloride 97 mmol/L (96-108); Creatinine Clr Calc Pharmacy 79.3; Estimated Glomerular Filt Rate > 60; Glucose Random 338 mg/dL (60-115); Lipase 32 U/L (8-78); Potassium 4.4 mmol/L (3.3-5.1); Sodium 136 mmol/L (135-145); Total Protein 7.6 g/dL (6.5-8.0)
[2022-07-06 08:26] VITALS: BP 165/71; PULSE 73; RESP 16; O2SAT 98
[2022-07-06] MEDS: iohexoL 350 MG/ML 100 ML INFUS..BTL 85 ML IV (08:41)
[2022-07-06 09:56] VITALS: BP 182/99; PULSE 67; RESP 16; O2SAT 98
[2022-07-06 10:46] LABS: Glucose, Whole Blood 200 mg/dL (60-115)
== END 2022-07-06 11:26 | disposition home or self-care (01) ==
PROVIDERS: Emergency Provider Emergency Medicine Emergency Medical Services
DX: R10.32 Left lower quadrant pain (principal); E11.9 Type 2 diabetes mellitus without complications; Z79.4 Long term (current) use of insulin; Z79.899 Other long term (current) drug therapy
CPT/HCPCS: 36415; 74177; 80048; 80076; 81001; 82947; 83690; 85025; 96361; 96374; 96375; 99284; J1170; J2405; Q9967

== ENCOUNTER 2023-06-10 08:33 | Emergency (ER) | payer OTHER, SELFPAY ==
--- NOTE | ~2023-06-10 | XR_ITS ---
EXAMINATION: XR CHEST CLINICAL INFORMATION: Vomiting COMPARISON: Chest x-ray 05/18/2021 TECHNIQUE: Frontal view of the chest was obtained. FINDINGS: No significant abnormality is noted involving the heart, lungs, mediastinum, bony thorax or soft tissues. There is a small left CP angle nodule measuring 1.30 cm new since the previous exam likely a nipple shadow XR/XR chest 1V IMPRESSION: 1. No acute cardiopulmonary process seen. 2. New 1.3 cm nodule left CP angle likely a nipple shadow. Recommend repeat chest x-ray with nipple markers or oblique views
[2023-06-10 08:43] VITALS: BP 170/90; PULSE 90; O2SAT 99
[2023-06-10 08:45] VITALS: BP 200/98; PULSE 95; RESP 18; TEMP 36.8; O2SAT 99; BMI 19.5
[2023-06-10 08:49] VITALS: PULSE 90; RESP 18
--- NOTE | 2023-06-10 08:54 | PC.NURSE ---
Per EMS, pt coming from home and lives with roommates, no PO intake or insulin use X3 days. Per EMS, roommates said pt seems more confused than normal. pt maori speaking only, consultant in ergonomics and safety at bedside. pt alert and answering questions, breathing even and unlabored. skin dry, poor turgor noted. pt reports not eating X3 days but does say he has been taking his insulin.
[2023-06-10 09:13] LABS: Glucose, Whole Blood > 600 mg/dL (60-115)
[2023-06-10 09:13] LABS: Glucose, Whole Blood > 600 mg/dL (60-115)
--- NOTE | 2023-06-10 09:27 | ECG_ITS ---
Test Reason : HYPERGLYCEMIA Blood Pressure : / mmHG Vent. Rate : 095 BPM Atrial Rate : 095 BPM P-R Int : 150 ms QRS Dur : 068 ms QT Int : 348 ms P-R-T Axes : 078 -17 058 degrees QTc Int : 437 ms Normal sinus rhythm Possible Left atrial enlargement Nonspecific ST abnormality Abnormal ECG When compared to the previous EKG of No significant changes seen Referred By: Harsh Thayer Electronically Signed By:Milton Lomax
--- NOTE | 2023-06-10 09:33 | ED_ITS ---
HPI - General Adult General Chief complaint: General Medical Stated complaint: HIGH BS 451,HIGH BP 180/100,NO FOOD/MEDS FOR DAYS Time Seen by Provider: 06/10/23 08:43 Source: patient Mode of arrival: EMS Limitations: language barrier (Tajik speaking only, ethylbenzene converter operator used) History of Present Illness HPI narrative: 68-year-old male with history diabetes mellitus, gallstones, HIV disease who presents emergency department for evaluation of unable to eat or drink x2 days. Patient states having nausea and vomiting. He states that anything he eats or drinks does not stay in. He states he is feeling very weak and fatigued. He denied fever, chills, rhinorrhea, sore throat, cough, chest pain, shortness of breath. He states he has been compliant with his medications however paramedics report that he has not been taking his insulin for at least 3 days. Related Data Home Medications Medication Instructions Recorded Confirmed insulin glargine 100 unit/mL (3 10 unit subcut BID 04/14/20 12/15/20 mL) subcutaneous pen (Lantus Solostar U-100 Insulin) insulin lispro 100 unit/mL 10.5 unit subcut BEDTIME 04/14/20 12/15/20 subcutaneous half-unit pen (Humalog Arnaldo KwikPen (U-100)) pioglitazone 45 mg tablet 45 mg PO DAILY 04/14/20 12/15/20 Previous Rx's Medication Instructions Recorded ondansetron HCl 4 mg tablet 4 mg PO Q6H PRN pain #8 tabs 04/12/20 (Zofran) oxycodone-acetaminophen 5 mg-325 1 tab PO TID PRN pain #9 tabs 04/12/20 mg tablet (Percocet) omeprazole 20 mg capsule,delayed 20 mg PO BID #60 caps 04/15/20 release cephalexin 500 mg capsule 500 mg PO Q8H 10 days #30 caps 11/27/20 naproxen 500 mg tablet (Naprosyn) 500 mg PO BID PRN pain #20 tabs 11/27/20 sulfamethoxazole 800 1 tab PO Q12H #20 tabs 11/27/20 mg-trimethoprim 160 mg tablet (Bactrim DS) ciprofloxacin 0.2 %-hydrocortisone 3 drp otic (ears) Q12H 7 days #10 01/09/22 1 % ear drops,suspension (Cipro HC) mL Allergies Allergy/AdvReac Type Severity Reaction Status Date / Time No Known Allergies Allergy Verified 04/06/23 11:36 [No Known Allergies*] Review of Systems 2 Review of Systems: Yes all other systems are reviewed and are negative [facility] Past Medical History Medical History Abscess of antecubital fossa Diabetes Gallstone HIV (human immunodeficiency virus infection) Methadone use Surgical History S/P appendectomy Social History Social History (System 04/06/23 @ 11:36 by Brook Rodríguez) Alcohol intake: never Patient Tobacco Use Status: Never used Tobacco Smoked in Last 30 Days: No Use of substances other than those prescribed or required for medical reasons: No Substance Use Type: Heroin Substance Use Type Other:: Methadone Advance Directives: No Advance Directives Information Provided: Yes Physical Exam ED Vital Signs: Vital Signs - 24 hr 06/10/23 08:45 06/10/23 08:49 06/10/23 11:29 Temperature 98.3 F Pulse Rate 95 90 95 Respiratory Rate 18 18 18 Blood Pressure 200/98 H 195/90 H Pulse Oximetry 99 98 Oxygen Delivery Method Room Air Room Air 06/10/23 12:44 06/10/23 12:47 Temperature 967.4 F H 97.4 F Pulse Rate 81 80 Respiratory Rate 18 18 Blood Pressure 197/79 H 207/96 H Pulse Oximetry 97 97 Oxygen Delivery Method Room Air Room Air BMI result Body Mass Index 19.5 Vital signs revealed an elevated blood pressure of 200/98 Exam General: Awake, alert in no distress, strong odor of ketones on his breath Head: Normocephalic, atraumatic EENT: PERRL, Lids normal, sclera normal, conjunctiva normal, nose normal , ears normal, throat without erythema or exudates Neck: Supple, no adenopathy Lung: breath sounds symmetric, no wheezing, rales or rhonchi Chest: symmetric movement, nontender Heart: regular rate and rhythm, normal S1, S2 no murmurs or rubs Abdomen: soft, non-tender, nondistended, normal bowel sounds Back: no vertebral tenderness, no CVAT Extremities: no deformities, moves all extremities symmetrically Skin: Multiple track boo, no evidence for cellulitis Neuro: Awake, alert, oriented, normal speech, cranial nerves intact, moves all extremities symmetrically Psych: Pleasant, cooperative Medications Administered Discontinued Medications Generic Name Dose Route Start Last Admin Trade Name Nicho PRN Reason Stop Dose Admin Sodium Chloride 1,000 mls @ 999 mls/hr 06/10/23 09:37 06/10/23 12:19 Ns IV 06/10/23 10:37 Infused .Q1H1M STA Infusion Sodium Chloride 1,000 mls @ 999 mls/hr 06/10/23 12:29 06/10/23 13:31 Ns IV 06/10/23 13:29 Infused .Q1H1M STA Infusion Insulin Human Regular 10 unit 06/10/23 12:55 06/10/23 13:03 Insulin Regular, Human 100 Unit/Ml 3 Ml Vial IVPUSH 06/10/23 12:56 10 unit ONCE ONE Administration Ondansetron HCl 4 mg 06/10/23 12:40 06/10/23 13:01 Ondansetron Hcl 4 Mg/2 Ml Vial IVPUSH 06/10/23 12:41 4 mg ONCE ONE Administration Medical Decision Making Medical Decision Making MDM Narrative: 68-year-old male with history diabetes mellitus, gallstones, HIV disease who presents emergency department for evaluation of unable to eat or drink x2 days. Paramedics report that the patient has not been compliant with her his insulin x3 days. Vital signs did reveal an elevated blood pressure otherwise unremarkable. Physical exam did reveal a strong odor of ketones on his breath otherwise unremarkable pain . Differential diagnosis: Includes but is not limited to diabetic ketoacidosis, starvation ketoacidosis, hyperglycemia secondary to noncompliance, dehydration, viral infection, COVID, influenza, volume depletion, electrolyte abnormalities, anemia Patient was treated with the following: Normal saline x1 L, regular insulin 6 units IV. 15:20 hours My interpretation patient's laboratory evaluation is as follows: CBC was normal sodium low 131. Bicarb low 23 BUN and creatinine elevated above his baseline 50 and 1.72 consistent with volume depletion. Glucose elevated 776. Anion gap 30 most likely secondary to elevated ketones with beta hydroxybutyrate at 5.26. patient's venous blood gas revealed a normal pH of 7.35 and a bicarb of 25. COVID-19 and influenza were negative. Patient received a 2 L of normal saline IV and a regular insulin 10 units IV Point of care glucose is improved to 435. The patient is feeling significantly better and is requesting to go home, he does not want to stay for another L of fluid and more insulin IV or for hospitalization. I did discuss the risks and benefits of leaving against medical advice which include dying from complications of high sugar, electrolyte abnormalities and kidney failure. The patient understood these risks and was discharged against medical advice Admission/Observation Consideration of admission/observation: Escalation of care including admission/observation considered Consult Healthcare Provider Management of the patient was discussed with: Hospitalist Lab Data MDM Lab Attestation statement: I reviewed the patient's lab results. 06/10/23 10:34 06/10/23 10:34 Labs: Lab Results 06/10/23 06/10/23 06/10/23 Range/Units 09:03 09:09 09:47 WBC (4.8-10.8) X10*3/uL RBC (4.60-5.80) X10*6/uL Hgb (14.0-18.0) g/dl Hct (42.0-52.0) % MCV (80.0-98.0) fL MCH (27.0-33.0) pg MCHC (31.0-36.0) g/dl RDW (11.0-16.0) % Plt Count (160-400) X10*3/uL MPV (9.4-12.4) fL Immature Gran % (Auto) (0.0-0.4) % Neut % (Auto) (45-73) % Lymph % (Auto) (20-40) % [place] % (Auto) (2-11) % Eos % (Auto) (0-4) % Baso % (Auto) (0-2) % Lymph # (Auto) (1.2-4.9) X10*3/uL [place] # (Auto) (0.1-1.2) X10*3/uL Eos # (Auto) (0.0-0.4) X10*3/uL Baso # (Auto) (0.0-0.2) X10*3/uL Abs Immat Gran (auto) (0.00-0.03) X10*3/uL Absolute Neuts (auto) (2.0-8.3) x10*3/uL Absolute Nucleated RBC (0.0-0.012) X10*3/uL Nucleated RBC % (auto) (0.0-0.2) /100WBC VBG pH (7.32-7.43) VBG pCO2 mmHg VBG pO2 mmHg VBG HCO3 (22-26) mmol/L VBG O2 Saturation % VBG Base Excess mmol/L Sodium (135-145) mmol/L Potassium (3.3-5.1) mmol/L Chloride (96-108) mmol/L Carbon Dioxide (22-29) mmol/L Anion Gap (12-20) BUN (9-16) mg/dL Creatinine (0.5-1.4) mg/dL Estim Creat Clear Calc Estimated GFR POC Glucose > 600 H* > 600 H* (60-115) mg/dL Random Glucose (60-115) mg/dL Lactic Acid (0.5-2.0) mmol/L Calcium (8.4-10.2) mg/dL Total Bilirubin (0.0-1.0) mg/dL Direct Bilirubin (0.0-0.5) mg/dL AST (5-37) U/L ALT (0-40) U/L Alkaline Phosphatase (39-117) U/L Total Protein (6.5-8.0) g/dL Albumin (3.5-5.0) g/dL Lipase (8-78) U/L Beta-Hydroxybutyrate (0.02-0.27) mmol/L Urine Color Yellow Urine Appearance Clear Urine pH 5.0 (5.0-9.0) Ur Specific [place] >= 1.030 H (1.005-1.025) Urine Protein Trace (Neg-Trace) mg/dL Urine Glucose (UA) >=1000 H (Negative) mg/dL Urine Ketones 40 (Negative) mg/dL Urine Blood Negative (Negative) Urine Nitrite Negative (Negative) Ur Leukocyte Esterase Negative (Negative) Urine RBC 0-2 (0-2) /HPF Urine WBC 0-5 (0-5) /HPF Ur Squamous Epith Cells 0-2 (0-2) /HPF Urine Bacteria None Seen (None Seen) Hyaline Casts 0-2 (0-2) /LPF COVID-19 (YAEL) (Negative) COVID-19 Clin Com Influenza Type A (LUZ) (Negative) Influenza Type B (LUZ) (Negative) Influenza A & B Note 06/10/23 06/10/23 06/10/23 Range/Units 10:34 10:38 12:35 WBC 9.7 (4.8-10.8) X10*3/uL RBC 5.44 (4.60-5.80) X10*6/uL Hgb 14.0 (14.0-18.0) g/dl Hct 42.8 (42.0-52.0) % MCV 78.7 L (80.0-98.0) fL MCH 25.7 L (27.0-33.0) pg MCHC 32.7 (31.0-36.0) g/dl RDW 13.9 (11.0-16.0) % Plt Count 302 D (160-400) X10*3/uL MPV 10.6 (9.4-12.4) fL Immature Gran % (Auto) 0.3 (0.0-0.4) % Neut % (Auto) 89.5 H (45-73) % Lymph % (Auto) 6.8 L (20-40) % [place] % (Auto) 3.3 (2-11) % Eos % (Auto) 0.0 (0-4) % Baso % (Auto) 0.1 (0-2) % Lymph # (Auto) 0.7 L (1.2-4.9) X10*3/uL [place] # (Auto) 0.3 (0.1-1.2) X10*3/uL Eos # (Auto) 0.0 (0.0-0.4) X10*3/uL Baso # (Auto) 0.0 (0.0-0.2) X10*3/uL Abs Immat Gran (auto) 0.03 (0.00-0.03) X10*3/uL Absolute Neuts (auto) 8.6 H (2.0-8.3) x10*3/uL Absolute Nucleated RBC 0.000 (0.0-0.012) X10*3/uL Nucleated RBC % (auto) 0.0 (0.0-0.2) /100WBC VBG pH 7.35 (7.32-7.43) VBG pCO2 46 mmHg VBG pO2 49 mmHg VBG HCO3 25 (22-26) mmol/L VBG O2 Saturation 73.0 % VBG Base Excess -0.2 mmol/L Sodium 133 L (135-145) mmol/L Potassium 5.1 (3.3-5.1) mmol/L Chloride 85 L (96-108) mmol/L Carbon Dioxide 23 (22-29) mmol/L Anion Gap 30 H (12-20) BUN 50 H (9-16) mg/dL Creatinine 1.72 H (0.5-1.4) mg/dL Estim Creat Clear Calc 36.2 Estimated GFR 40 POC Glucose (60-115) mg/dL Random Glucose 776 H* (60-115) mg/dL Lactic Acid 4.2 H* (0.5-2.0) mmol/L Calcium 10.8 H D (8.4-10.2) mg/dL Total Bilirubin 0.3 (0.0-1.0) mg/dL Direct Bilirubin 0.1 (0.0-0.5) mg/dL AST 22 (5-37) U/L ALT 23 (0-40) U/L Alkaline Phosphatase 106 (39-117) U/L Total Protein 9.2 H (6.5-8.0) g/dL Albumin 4.0 (3.5-5.0) g/dL Lipase 19 (8-78) U/L Beta-Hydroxybutyrate 5.62 H (0.02-0.27) mmol/L Urine Color Urine Appearance Urine pH (5.0-9.0) Ur Specific [place] (1.005-1.025) Urine Protein (Neg-Trace) mg/dL Urine Glucose (UA) (Negative) mg/dL Urine Ketones (Negative) mg/dL Urine Blood (Negative) Urine Nitrite (Negative) Ur Leukocyte Esterase (Negative) Urine RBC (0-2) /HPF Urine WBC (0-5) /HPF Ur Squamous Epith Cells (0-2) /HPF Urine Bacteria (None Seen) Hyaline Casts (0-2) /LPF COVID-19 (YAEL) Negative (Negative) COVID-19 Clin Com See Note Influenza Type A (LUZ) Negative (Negative) Influenza Type B (LUZ) Negative (Negative) Influenza A & B Note See Note 06/10/23 06/10/23 Range/Units 12:41 14:44 WBC (4.8-10.8) X10*3/uL RBC (4.60-5.80) X10*6/uL Hgb (14.0-18.0) g/dl Hct (42.0-52.0) % MCV (80.0-98.0) fL MCH (27.0-33.0) pg MCHC (31.0-36.0) g/dl RDW (11.0-16.0) % Plt Count (160-400) X10*3/uL MPV (9.4-12.4) fL Immature Gran % (Auto) (0.0-0.4) % Neut % (Auto) (45-73) % Lymph % (Auto) (20-40) % [place] % (Auto) (2-11) % Eos % (Auto) (0-4) % Baso % (Auto) (0-2) % Lymph # (Auto) (1.2-4.9) X10*3/uL [place] # (Auto) (0.1-1.2) X10*3/uL Eos # (Auto) (0.0-0.4) X10*3/uL Baso # (Auto) (0.0-0.2) X10*3/uL Abs Immat Gran (auto) (0.00-0.03) X10*3/uL Absolute Neuts (auto) (2.0-8.3) x10*3/uL Absolute Nucleated RBC (0.0-0.012) X10*3/uL Nucleated RBC % (auto) (0.0-0.2) /100WBC VBG pH (7.32-7.43) VBG pCO2 mmHg VBG pO2 mmHg VBG HCO3 (22-26) mmol/L VBG O2 Saturation % VBG Base Excess mmol/L Sodium (135-145) mmol/L Potassium (3.3-5.1) mmol/L Chloride (96-108) mmol/L Carbon Dioxide (22-29) mmol/L Anion Gap (12-20) BUN (9-16) mg/dL Creatinine (0.5-1.4) mg/dL Estim Creat Clear Calc Estimated GFR POC Glucose 533 H* 435 H* (60-115) mg/dL Random Glucose (60-115) mg/dL Lactic Acid (0.5-2.0) mmol/L Calcium (8.4-10.2) mg/dL Total Bilirubin (0.0-1.0) mg/dL Direct Bilirubin (0.0-0.5) mg/dL AST (5-37) U/L ALT (0-40) U/L Alkaline Phosphatase (39-117) U/L Total Protein (6.5-8.0) g/dL Albumin (3.5-5.0) g/dL Lipase (8-78) U/L Beta-Hydroxybutyrate (0.02-0.27) mmol/L Urine Color Urine Appearance Urine pH (5.0-9.0) Ur Specific [place] (1.005-1.025) Urine Protein (Neg-Trace) mg/dL Urine Glucose (UA) (Negative) mg/dL Urine Ketones (Negative) mg/dL Urine Blood (Negative) Urine Nitrite (Negative) Ur Leukocyte Esterase (Negative) Urine RBC (0-2) /HPF Urine WBC (0-5) /HPF Ur Squamous Epith Cells (0-2) /HPF Urine Bacteria (None Seen) Hyaline Casts (0-2) /LPF COVID-19 (YAEL) (Negative) COVID-19 Clin Com Influenza Type A (LUZ) (Negative) Influenza Type B (LUZ) (Negative) Influenza A & B Note Independent Interpretation I performed an independent interpretation of an: EKG Interpretation: My interpretation patient's 12 EKG done at 09:36 hours is follows: Normal sinus rhythm rate of 95, normal FL interval, QRS duration QTC interval, no ST segment elevation, no ST segment depression, Q-wave in lead 3, no T-wave abnormalities Radiology Impression Discussion of test interpretation with radiology: I have reviewed the radiologist's reading. Radiologist Impression: XR chest 1V IMPRESSION: 1. No acute cardiopulmonary process seen. 2. New 1.3 cm nodule left CP angle likely a nipple shadow. Recommend repeat chest x-ray with nipple markers or oblique views Dictated By: Baldo Cooper MD External Record Review External record reviewed: Inpatient record Chronic Conditions Patient?s care impacted by: Diabetes Critical Care Time Critical Care Time Critical Care Time: Yes Total Critical Care Time: 90 Attestation: Critical Care: The patient was critically ill with a high probability of imminent or life threatening deterioration. I spent greater than 30 minutes of discontinuous time evaluating the patient,delivering critical care at the bedside, discussing and evaluating pertinent data with consultants. Critical care time does not include time spent performing separately billable procedures or teaching. Total time spent performing critical care was 90 minutes. Discharge Plan Discharge Clinical Impression: Acute hyperglycemia, Ketosis, Acute dehydration, Acute kidney injury Patient Disposition: Left Against Medical Advice Additional Instructions: I wanted you to stay in the emergency department to get another L of fluid and a repeat your laboratory evaluation to see if there is improvement of your kidney function however you want to leave at this time therefore I am letting you leave against medical advice Restart your insulin as prescribed by your providers. Please return to the emergency department if feel worse in any way or if you want to get further care Prescriptions: No Action omeprazole 20 mg capsule,delayed release(DR/EC) 20 mg PO BID Qty: 60 0RF oxycodone-acetaminophen [Percocet] 5-325 mg tablet 1 tab PO TID PRN (Reason: pain) Qty: 9 0RF ondansetron HCl [Zofran] 4 mg tablet 4 mg PO Q6H PRN (Reason: pain) Qty: 8 0RF sulfamethoxazole-trimethoprim [Bactrim DS] 800-160 mg tablet 1 tab PO Q12H Qty: 20 0RF cephalexin 500 mg capsule 500 mg PO Q8H 10 Days Qty: 30 0RF naproxen [Naprosyn] 500 mg tablet 500 mg PO BID PRN (Reason: pain) Qty: 20 0RF Cipro HC 0.2-1 % drops,suspension 3 drp otic (ears) Q12H 7 Days Qty: 10 0RF insulin lispro [Humalog Arnaldo KwikPen U-100] 100 unit/mL insulin pen, half- unit 10.5 unit subcut BEDTIME Lantus Solostar U-100 Insulin 100 unit/mL (3 mL) insulin pen 10 unit subcut BID pioglitazone 45 mg tablet 45 mg PO DAILY Stand Alone Forms: Against Medical Advice
[2023-06-10 09:52] LABS: Appearance Urine Clear; Color Urine Yellow; Glucose Urine UA >=1000 mg/dL (Negative); Leukocyte Esterase Urine Negative (Negative); Nitrite Urine Negative (Negative); Specific Gravity - Urine >= 1.030 (1.005-1.025); UMIC TRIGGER UACC YES; Urine Blood Negative (Negative); Urine Ketones 40 mg/dL (Negative); Urine Protein Trace mg/dL (Neg-Trace)
--- NOTE | 2023-06-10 09:53 | PC.NURSE ---
Two RNs tried for IV attempt (2 attempts) with no success, pt noted to have poor venous access. awaiting another RN for ultrasound IV access.
[2023-06-10 09:57] LABS: Bacteria Urine None Seen (None Seen); Hyaline Casts Urine 0-2 /LPF (0-2); RBC Urine 0-2 /HPF (0-2); Squamous Epithelial Cell Urine 0-2 /HPF (0-2); WBC Urine 0-5 /HPF (0-5)
--- NOTE | 2023-06-10 10:19 | PC.NURSE ---
Rashad RN at bedside attempting ultrasound guided IV. Pt noted to keep removing leads from chest. Up and ambulatory around room needing some redirection at times.
[2023-06-10 10:41] LABS: MANUAL DIFF FLAG NO
[2023-06-10 10:46] LABS: Basophils Percent Auto 0.1 % (0-2); Hematocrit 42.8 % (42.0-52.0); Imm Gran Abs Auto 0.03 X10*3/uL (0.00-0.03); Imm Gran Pct Auto 0.3 % (0.0-0.4); Lymphocytes Absolute Auto 0.7 X10*3/uL (1.2-4.9); Lymphocytes Percent Auto 6.8 % (20-40); Mean Corpuscular HGB Conc 32.7 g/dl (31.0-36.0); Mean Corpuscular Hemoglobin 25.7 pg (27.0-33.0); Mean Corpuscular Volume 78.7 fL (80.0-98.0); Mean Platelet Volume 10.6 fL (9.4-12.4); Monocytes Absolute Auto 0.3 X10*3/uL (0.1-1.2); Monocytes Percent Auto 3.3 % (2-11); Neutrophils Absolute Auto 8.6 x10*3/uL (2.0-8.3); Neutrophils Percent Auto 89.5 % (45-73); Platelet Count 302 X10*3/uL (160-400); Red Blood Count 5.44 X10*6/uL (4.60-5.80); Red Cell Distribution Width 13.9 % (11.0-16.0); White Blood Count 9.7 X10*3/uL (4.8-10.8)
[2023-06-10 10:46] LABS: Venous Blood Gas Refer to POC result
[2023-06-10 10:46] LABS: VBG Base Excess -0.2 mmol/L; VBG HCO3 25 mmol/L (22-26); VBG pCO2 46 mmHg; VBG pH 7.35 (7.32-7.43); VBG pO2 49 mmHg
[2023-06-10 10:56] LABS: Beta-Hydroxybutyrate 5.62 mmol/L (0.02-0.27)
[2023-06-10 10:58] LABS: COVID-19 Test Negative (Negative); IDNOW Serial# 58CA691E; IDNOW Serial# 9DB6401D; Influenza A Negative (Negative); Influenza B2 Negative (Negative)
[2023-06-10 10:59] LABS: Alanine Aminotransferase 23 U/L (0-40); Alkaline Phosphatase 106 U/L (39-117); Anion Gap 30 (12-20); Aspartate Amino Transferase 22 U/L (5-37); Bilirubin Direct 0.1 mg/dL (0.0-0.5); Bilirubin Total 0.3 mg/dL (0.0-1.0); Blood Urea Nitrogen 50 mg/dL (9-16); Calcium 10.8 mg/dL (8.4-10.2); Carbon Dioxide 23 mmol/L (22-29); Chloride 85 mmol/L (96-108); Creatinine Clr Calc Pharmacy 36.2; Estimated Glomerular Filt Rate 40; Glucose Random 776 mg/dL (60-115); Lipase 19 U/L (8-78); Potassium 5.1 mmol/L (3.3-5.1); Sodium 133 mmol/L (135-145); Total Protein 9.2 g/dL (6.5-8.0)
--- NOTE | 2023-06-10 11:09 | PC.NURSE ---
pt continues to detach himself from monitor and IV fluids and walk around hallways, pt redirected back to room, calm. NS noted to be on ground next to pt, new 1L NS bag hung. seismic interpreter utilized to speak to pt.
[2023-06-10] MEDS: 0.9 % Sodium Chloride 1,000 ML 999 ML IV ×2 (11:13→12:36)
--- NOTE | 2023-06-10 11:13 | PC.NURSE ---
Pt continually needs redirection, noted to again pull off leads and removed fluid bolus and fluids bolus noted all on floor, new bag hung. U/S guided IV to left medial bicep by Rashad HOSKINS
[2023-06-10 11:29] VITALS: BP 195/90; PULSE 95; RESP 18; O2SAT 98
--- NOTE | 2023-06-10 12:42 | PC.NURSE ---
Plan for additional fluids/insulin/zofran. Recheck POC 533 Dr Thayer aware.
[2023-06-10 12:44] VITALS: BP 197/79; PULSE 81; RESP 18; TEMP 519.7; TEMP 967.4; O2SAT 97
[2023-06-10 12:47] VITALS: BP 207/96; PULSE 80; RESP 18; TEMP 36.3; O2SAT 97
[2023-06-10 12:52] LABS: Glucose, Whole Blood 533 mg/dL (60-115)
[2023-06-10 12:59] LABS: Lactic Acid 4.2 mmol/L (0.5-2.0)
[2023-06-10] MEDS: ondansetron HCL 4 MG/2 ML VIAL IVPUSH (13:01)
[2023-06-10] MEDS: Insulin Regular, Human 100 UNIT/ML 3 ML VIAL 10 UNIT IVPUSH (13:03)
[2023-06-10 14:39] LABS: Reflex Lactate? Lactic Acid Added
[2023-06-10 14:49] LABS: Glucose, Whole Blood 435 mg/dL (60-115)
--- NOTE | 2023-06-10 15:06 | PC.NURSE ---
pt awake, calm and resting in bed. pt denies pain, recheck BGL 435. aware.
--- NOTE | 2023-06-10 15:32 | MHC.EDTECH ---
This jewelry technician went to draw labs ordered and nurse Mila informed me that the patient is leaving [facility] and not to draw the labs.
== END 2023-06-10 15:57 | disposition left against medical advice (07) ==
PROVIDERS: Emergency Provider Emergency Medicine Emergency Medical Services
DX: E11.65 Type 2 diabetes mellitus with hyperglycemia (principal); E11.10 Type 2 diabetes mellitus with ketoacidosis without coma; R11.2 Nausea with vomiting, unspecified; E86.0 Dehydration; R94.31 Abnormal electrocardiogram [ECG] [EKG]; R53.83 Other fatigue; Z91.199 Patient's noncompliance with other medical treatment and regimen due to unspecified reason; Z79.4 Long term (current) use of insulin; Z79.899 Other long term (current) drug therapy; Z21 Asymptomatic human immunodeficiency virus [HIV] infection status; Z11.52 Encounter for screening for COVID-19
CPT/HCPCS: 36415; 71045; 80053; 81001; 82010; 82248; 82803; 82947; 83605; 83690; 85025; 87502; 87635; 93005; 96361; 96374; 96375; 99284; 99285; J2405

== ENCOUNTER → 2023-06-10 09:27 | Outpatient (BNV) | payer OTHER, SELFPAY | PROVIDERS: Emergency Provider Emergency Medicine Emergency Medical Services; Visit Provider Internal Medicine Cardiovascular Disease | DX: R94.31 Abnormal electrocardiogram [ECG] [EKG] (principal) | CPT/HCPCS: 93010 ==

== ENCOUNTER 2023-06-21 14:26 | Outpatient (REF) | payer OTHER, SELFPAY ==
[2023-06-21 17:21] LABS: MANUAL DIFF FLAG NO
[2023-06-21 17:31] LABS: Basophils Percent Auto 0.4 % (0-2); Eosinophils Absolute Auto 0.1 X10*3/uL (0.0-0.4); Eosinophils Percent Auto 1.2 % (0-4); Hematocrit 37.5 % (42.0-52.0); Hemoglobin 11.5 g/dl (14.0-18.0); Imm Gran Abs Auto 0.04 X10*3/uL (0.00-0.03); Imm Gran Pct Auto 0.8 % (0.0-0.4); Lymphocytes Percent Auto 21.4 % (20-40); Mean Corpuscular HGB Conc 30.7 g/dl (31.0-36.0); Mean Corpuscular Hemoglobin 25.6 pg (27.0-33.0); Mean Corpuscular Volume 83.5 fL (80.0-98.0); Mean Platelet Volume 11.3 fL (9.4-12.4); Monocytes Absolute Auto 0.6 X10*3/uL (0.1-1.2); Monocytes Percent Auto 11.3 % (2-11); Neutrophils Absolute Auto 3.2 x10*3/uL (2.0-8.3); Neutrophils Percent Auto 64.9 % (45-73); Platelet Count 253 X10*3/uL (160-400); Red Blood Count 4.49 X10*6/uL (4.60-5.80); Red Cell Distribution Width 14.7 % (11.0-16.0); White Blood Count 4.9 X10*3/uL (4.8-10.8)
[2023-06-21 18:34] LABS: Alanine Aminotransferase 25 U/L (0-40); Albumin Level 3.5 g/dL (3.5-5.0); Alkaline Phosphatase 91 U/L (39-117); Anion Gap 15 (12-20); Aspartate Amino Transferase 23 U/L (5-37); Bilirubin Total 0.2 mg/dL (0.0-1.0); Blood Urea Nitrogen 18 mg/dL (9-16); Calcium 9.7 mg/dL (8.4-10.2); Carbon Dioxide 30 mmol/L (22-29); Chloride 98 mmol/L (96-108); Estimated Glomerular Filt Rate > 60; Glucose Random 468 mg/dL (60-115); Potassium 4.5 mmol/L (3.3-5.1); Sodium 138 mmol/L (135-145); Total Protein 7.7 g/dL (6.5-8.0)
[2023-06-22 11:33] LABS: Absolute CD3 Count 931 cells/uL (840-3060); Absolute CD4 Count 371 cells/uL (490-1740); Absolute CD8 Count 557 cells/uL (180-1170); Absolute Lymphocytes 1323 cells/uL (850-3900); CD4 CD8 Ratio 0.67 (0.86-5.00); Percent CD3 Cells 70 % (57-85); Percent CD4 Cells 28 % (30-61); Percent CD8 Cells 42 % (12-42)
[2023-06-23 14:28] LABS: HIV RNA PCR Qn Copies NOT DETECTED copies/mL (NOT DETECTED); HIV RNA PCR Qn Log Copies NOT DETECTED (NOT DETECTED)
== END 2023-06-21 14:27 | disposition home or self-care (01) ==
LOC: HO.CHCLDS 14:26
PROVIDERS: Visit Provider Internal Medicine
DX: B20 Human immunodeficiency virus [HIV] disease (principal)
CPT/HCPCS: 36415; 80053; 85025; 86359; 86360; 87536

== ENCOUNTER 2023-07-18 10:18 | Outpatient (REF) | payer OTHER, SELFPAY ==
[2023-07-18 12:55] LABS: MANUAL DIFF FLAG NO
[2023-07-18 13:06] LABS: Basophils Percent Auto 0.6 % (0-2); Eosinophils Absolute Auto 0.1 X10*3/uL (0.0-0.4); Eosinophils Percent Auto 1.5 % (0-4); Hemoglobin 11.7 g/dl (14.0-18.0); Imm Gran Abs Auto 0.04 X10*3/uL (0.00-0.03); Imm Gran Pct Auto 0.8 % (0.0-0.4); Lymphocytes Absolute Auto 1.2 X10*3/uL (1.2-4.9); Lymphocytes Percent Auto 23.8 % (20-40); Mean Corpuscular HGB Conc 31.6 g/dl (31.0-36.0); Mean Corpuscular Hemoglobin 25.5 pg (27.0-33.0); Mean Corpuscular Volume 80.8 fL (80.0-98.0); Monocytes Absolute Auto 0.4 X10*3/uL (0.1-1.2); Monocytes Percent Auto 7.1 % (2-11); Neutrophils Absolute Auto 3.5 x10*3/uL (2.0-8.3); Neutrophils Percent Auto 66.2 % (45-73); Platelet Count 297 X10*3/uL (160-400); Red Blood Count 4.58 X10*6/uL (4.60-5.80); Red Cell Distribution Width 14.2 % (11.0-16.0); White Blood Count 5.2 X10*3/uL (4.8-10.8)
[2023-07-18 13:23] LABS: Alanine Aminotransferase 17 U/L (0-40); Alkaline Phosphatase 104 U/L (39-117); Anion Gap 10 (12-20); Aspartate Amino Transferase 18 U/L (5-37); Bilirubin Total 0.2 mg/dL (0.0-1.0); Blood Urea Nitrogen 22 mg/dL (9-16); Carbon Dioxide 33 mmol/L (22-29); Chloride 99 mmol/L (96-108); Cholesterol 216 mg/dL (<200); Estimated Glomerular Filt Rate > 60; Glucose Random 123 mg/dL (60-115); HDL Cholesterol 35 mg/dL (>40); LDL Cholesterol Calculated 102 mg/dL (<100); Potassium 3.8 mmol/L (3.3-5.1); Sodium 138 mmol/L (135-145); Total Protein 8.7 g/dL (6.5-8.0); Triglycerides 399 mg/dL (<150)
[2023-07-18 14:05] LABS: Reflex LDLD? No
[2023-07-18 14:28] LABS: Vitamin B12 633 pg/mL (200-900)
[2023-07-19 11:58] LABS: Absolute CD3 Count 1109 cells/uL (840-3060); Absolute CD4 Count 451 cells/uL (490-1740); Absolute CD8 Count 652 cells/uL (180-1170); Absolute Lymphocytes 1449 cells/uL (850-3900); CD4 CD8 Ratio 0.69 (0.86-5.00); Percent CD3 Cells 77 % (57-85); Percent CD4 Cells 31 % (30-61); Percent CD8 Cells 45 % (12-42)
[2023-07-21 07:49] LABS: TS Negative Control Passed; TS Panel A 0; TS Panel B 0; TS Positive Control Passed; TSpotTB Negative (Negative)
[2023-07-21 13:54] LABS: HIV RNA PCR Qn Copies 52 copies/mL (NOT DETECTED); HIV RNA PCR Qn Log Copies 1.72 (NOT DETECTED)
[2023-07-22 09:33] LABS: RPR Rapid Plasma Reagin NON-REACTIVE (NON-REACTIVE)
== END 2023-07-18 10:19 | disposition home or self-care (01) ==
LOC: HO.CHCLDS 10:18
PROVIDERS: Referring Provider Internal Medicine; Visit Provider Internal Medicine
DX: Z11.1 Encounter for screening for respiratory tuberculosis (principal); Z13.6 Encounter for screening for cardiovascular disorders; B20 Human immunodeficiency virus [HIV] disease; R26.89 Other abnormalities of gait and mobility
CPT/HCPCS: 36415; 80053; 80061; 82607; 85025; 86359; 86360; 86481; 86592; 87536

== ENCOUNTER 2023-09-13 09:39 | Outpatient (REF) | payer OTHER, SELFPAY ==
--- NOTE | ~2023-09-13 | XR_ITS ---
EXAMINATION: XR KNEE, RIGHT CLINICAL INFORMATION: Right knee pain COMPARISON: None available. TECHNIQUE: Four views of the right knee. FINDINGS: No fracture or joint effusion. Alignment is anatomic. Joint spaces are maintained. Small area of calcification or ossification posterior to the femoral condyles. XR/XR knee RT 4V IMPRESSION: 1. No acute abnormality. 2. Small area of calcification or ossification posterior to the femoral condyles. Uncertain significance may simple reflect some degenerative calcification in the capsule. Small fracture fragment thought to be unlikely.
== END 2023-09-13 09:40 | disposition home or self-care (01) ==
LOC: HO.HHCX 09:39
PROVIDERS: Visit Provider Internal Medicine
DX: Z13.89 Encounter for screening for other disorder (principal)
CPT/HCPCS: 73564

== ENCOUNTER 2023-09-13 10:38 | Outpatient (REF) | payer OTHER, SELFPAY ==
[2023-09-13 15:02] LABS: Anion Gap 16 (12-20); Blood Urea Nitrogen 33 mg/dL (9-16); Calcium 9.9 mg/dL (8.4-10.2); Carbon Dioxide 30 mmol/L (22-29); Chloride 97 mmol/L (96-108); Estimated Glomerular Filt Rate > 60; Glucose Random 177 mg/dL (60-115); Potassium 3.9 mmol/L (3.3-5.1); Sodium 139 mmol/L (135-145)
== END 2023-09-13 10:39 | disposition home or self-care (01) ==
LOC: HO.CHCLDS 10:38
PROVIDERS: Visit Provider Internal Medicine
DX: M25.561 Pain in right knee (principal)
CPT/HCPCS: 36415; 73564; 80048; 82550

== ENCOUNTER 2023-10-23 13:00 | Outpatient (RCR) | payer OTHER, SELFPAY | END 2024-02-06 10:42 | disposition home or self-care (01) | LOC: HO.PTCHIC 13:00 | PROVIDERS: PCP Internal Medicine; Visit Provider Internal Medicine | DX: M25.561 Pain in right knee (principal); R26.89 Other abnormalities of gait and mobility | CPT/HCPCS: 97110; 97112; 97163 ==

== ENCOUNTER 2023-10-29 16:09 | Outpatient (REF) | payer OTHER, SELFPAY ==
[2023-10-29 18:51] LABS: TSH reflex Free T4 1.83 uIU/mL (0.32-4.0)
== END 2023-10-29 16:10 | disposition home or self-care (01) ==
LOC: HO.CHCLDS 16:09
PROVIDERS: Visit Provider Internal Medicine
DX: R41.3 Other amnesia (principal)
CPT/HCPCS: 36415; 84443

== ENCOUNTER 2023-12-05 12:30 | Outpatient (REF) | payer OTHER, SELFPAY ==
--- NOTE | 2023-12-05 12:35 | EEG_ITS ---
FINDINGS: The waking background activity consists of a moderate voltage of 6.5 to 7 hertz diffuse theta intermixed anteriorly with muscle artifacts. Photic stimulation is without activation. Hyperventilation was omitted. IMPRESSION: This is an abnormal EEG due to diffuse background slowing consistent with a diffuse encephalopathic process. MD AIMEE Morales/STELLA / [id number]
== END 2023-12-05 12:31 | disposition home or self-care (01) ==
LOC: HO.NEURO 12:30
PROVIDERS: Visit Provider Internal Medicine
DX: R41.3 Other amnesia (principal)
CPT/HCPCS: 95816

== ENCOUNTER 2024-01-30 15:56 | Emergency (ER) | payer OTHER, SELFPAY ==
[2024-01-30 16:07] VITALS: BP 142/53; BP 154/96; PULSE 81; PULSE 87; RESP 18; TEMP 36.7; O2SAT 95; BMI 23.0
--- OUTSIDE RECORDS SUMMARY | 2024-01-30 16:27 | XMS_ITS | Continuity of Care Document ---
Author Organization [facility] ter Address [address] [place] [id number]- Care Team Providers Care Silk Screen Processor Name Role Phone Randy Linares MD Primary Care Physician [phone] Encounter [facility] Date(s): 07/05/22 - 07/06/[address] [address]- Discharge Disposition: A-D/C Walkout Attending Physician: Not on Staff, Attending MD Admitting Physician: Not on Staff, Admitting MD Referring Physician: Not on Staff, Referring MD Allergies, Adverse Reactions, Alerts No Known Allergies Immunizations Given and Recorded Vaccine Date Status Refusal Reason SARS-CoV-2 (COVID-19) mRNA BNT-162b2 vac 02/07/21 Recorded SARS-CoV-2 (COVID-19) mRNA BNT-162b2 vac 01/20/21 Recorded pneumococcal 23-valent vaccine 04/24/19 Recorded pneumococcal 23-valent vaccine 05/16/12 Recorded influenza virus vaccine, inactivated 04/24/19 Sinan rded influenza virus vaccine, inactivated 01/24/18 Sinan rded influenza virus vaccine, inactivated 04/26/17 Sinan rded influenza virus vaccine, inactivated 12/30/15 Sinan rded influenza virus vaccine, inactivated 02/12/15 Sinan rded influenza virus vaccine, inactivated 01/19/15 Sinan rded influenza virus vaccine, inactivated 02/06/14 Sinan rded influenza virus vaccine, inactivated 02/24/11 Sinan rded Meningococcal Conjugate Vaccine 01/24/18 Recorded Meningococcal Conjugate Vaccine 04/26/17 Recorded pneumococcal 13-valent vaccine 02/19/14 Recorded tetanus/diphtheria/pertussis, acel(Tdap) 05/16/12 Recorded Medications Actos 45 mg oral tablet 1 tablet = 45 mg, By Mouth, Daily, # 30 tablet, 0 Refills, Maintenance, Tablet Start Date: 04/18/12 Status: Ordered Biktarvy oral tablet 1 tablet, By Mouth, Daily, # 30 tablet, 0 Refills, Maintenance, 09/06/18 11:08:34 EDT, Tablet Start Date: 09/06/18 Status: Ordered Humalog 100 u/ml subcutaneous injection ADMINISTER 12 UNITS UNDER THE SKIN THREE TIMES DAILY. INSULIN PER SLIDING SCALE PROTOCOL Start Date: 05/23/21 Status: Ordered Lantus 100 u/ml subcutaneous solution = 50 units, Subcutaneous Injection, Daily at bedtime, # 10 mL, 0 Refills, Maintenance, 09/06/18 10:30:48 EDT, Solution Start Date: 09/06/18 Status: Ordered methadone 10 mg/5 mL oral solution 36.5 mL = 73 mg, By Mouth, Daily in AM, 0 Refills, Maintenance, 05/24/21 9:07:00 EST, Solution, Partial fill upon patient request if the prescription is for a schedule II opioid drug. Start Date: 05/24/21 Status: Ordered Norvasc 5 mg oral tablet 5 mg, By Mouth, Daily, # 30 tablet, Refills 0, Tot. Refills 0, Maintenance, 05/24/21 9:06:00 EST, Route to Pharmacy Electronically, 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 Diabetes mellitus type 2, uncontrolled Confirmed Active Underweight Confirmed Active Vital Signs Most recent to oldest [Reference Range]: 1 2 3 Oxygen Saturation [94-100 %] 100 % (07/05/22 9:11 PM) 98 % (07/05/22 5:48 PM) 99 % (07/05/22 3:42 PM) Pulse Rate [55-90 bpm] 99 bpm *H* (07/05/22 9:11 PM) 70 bpm (07/05/22 5:48 PM) 84 bpm (07/05/22 3:42 PM) Blood Pressure [90-138/55-84 mm Hg] 157/80mm Hg *H* (07/05/22 9:11 PM) 167/79mm Hg *H* (07/05/22 5:48 PM) 178/93mm Hg *H* (07/05/22 3:42 PM) Respiratory Rate [16-30 br/min] 16 br/min (07/05/22 9:11 PM) 18 br/min (07/05/22 3:42 PM) 18 br/min (07/05/22 10:53 AM) Temperature [96.8-100.4 DegF] 98.1 DegF (07/05/22 9:11 PM) 97.5 DegF (07/05/22 5:48 PM) 98.2 DegF (07/05/22 3:42 PM) Mode of Delivery (Oxygen) Room air (07/05/22 9:11 PM) Room air (07/05/22 5:48 PM) Room air (07/05/22 3:42 PM) Blood pressure sites Arm, left (07/05/22 9:11 PM) Arm, left (07/05/22 5:48 PM) Arm, left (07/05/22 3:42 PM) Temperature Route Oral (07/05/22 9:11 PM) Oral (07/05/22 5:48 PM) Oral (07/05/22 3:42 PM) Social History Social History Type Response Sex Male EKG study * Event Display: EKG Authored Date: * Event Display: ECG 12-Lead Authored Date: Please click on pdf link to open report * Event Display: ECG 12-Lead Authored Date: Ventricular Rate: 69 BPM Atrial Rate: 69 BPM P-R Interval: 156 ms QRS Duration: 74 ms Q-T Interval: 400 ms QTC Calculation(Bazett): 428 ms P [place]: -27 degrees R [place]: -9 degrees T [place]: 38 degrees Normal sinus rhythm Normal ECG When compared with ECG of 20-MAY-2021 11:58, Nonspecific T wave abnormality now evident in Lateral leads Confirmed by PRAKASH ROY MD ([id number]) on 07/05/2022 5:54:21 PM [place]: PRAKASH ROY MD Patient Care team information Care Team Personnel Name: Randy Linares MD Position: [facility] Outreach Member Role: PCP Address: Address: [address] [place] [address]- [place] Name: Greogria Pino RN Position: [facility] RN Member Role: Primary Care Nurse Name: Mason Dowd RN Position: [facility] RN Member Role: Primary Care Nurse Name: Gregoria Fuller RN Position: [facility] ED RN W/OE and Tasks Member Role: Primary Care Nurse Name: Chalo Teixeira RN Position: [facility] RN Member Role: Primary Care Nurse Name: Stevie Prakash MD Position: [facility] GI MD Member Role: Lifetime Consulting Physician Address: Address: [address] [facility] [place] [address]- Name: Amy Moon RN Position: [facility] Onco RN Member Role: Primary Care Nurse Care Team Related Persons Name: NUSRAT ESTEVES Address: home [address] [place] [id number] Name: DIETER OROPEZA Address: home [address] [place] [address]
--- OUTSIDE RECORDS SUMMARY | 2024-01-30 16:27 | XMS_ITS | Continuity of Care Document ---
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 Start Date: 05/24/21 Status: Ordered Methadone Liquid 73 mg, Solution, By Mouth, 05/24/21 9:00:00 EST Start Date: 05/24/21 Stop Date: 05/24/21 Status: Completed Norvasc 5 mg oral tablet 5 mg, By Mouth, Daily, # 30 tablet, Refills 0, Tot. Refills 0, Maintenance, 05/24/21 9:06:00 EST, Route to Pharmacy Electronically, [facility]/pharmacy #[id number], 177, cm, 05/24/21 7:04:00 EST, Height, 57.4, kg, 05/20/21 17:14:00 EST, Dry Weight Start Date: 05/24/21 Stop Date: 06/23/21 Status: Ordered Problem List Condition Effective Dates Status Health Status Inform ant Acquired immunodeficiency sy ndrome due to HIV-1(Confirmed) Active Diabetes mellitus type 2, uncontrolled(Confirmed) Active Underweight(Confirmed) Active Results Orders for Microbiology Reports Name Date Blood Culture 05/20/21 Blood Culture #2 05/20/21 Microbiology Reports TEST:Blood Culture, Second Order STATUS:Unauthenticated BODY SITE: SOURCE:Blood COLLECTED DATE/TIME:05/20/21 12:40 PM Blood Culture, Second Order SPECIMEN DESCRIPTION : BLOOD NO SITE SPECIAL REQUESTS : NONE CULTURE : NO GROWTH 4 DAYS REPORT STATUS : PRELIMINARY REPORT TEST:Blood Culture STATUS:Unauthenticated BODY SITE: SOURCE:Blood COLLECTED DATE/TIME:05/20/21 11:52 AM Blood Culture SPECIMEN DESCRIPTION : BLOOD RAC SPECIAL REQUESTS : NONE CULTURE : NO GROWTH 4 DAYS REPORT STATUS : PRELIMINARY REPORT Radiology Reports * Exam Date Time Procedure Performing Provider Status 05/20/21 12:26 PM Chest Portable Halina Russell ut (Verified) Notes: (Chest Portable) Reason For Exam: Shortness of Breath RESULT: Chest Portable Chest Portable REASON: Shortness of Breath; Clinical Question(s): Pneumonia / Pneumonia COMPARISON: 10/04/2018 FINDINGS: LINES AND TUBES: Hazy airspace opacity in the bilateral mid to lower lungs. LUNGS AND PLEURA: Clear lungs. Normal pulmonary vascularity. No pleural effusion. No pneumothorax. HEART, MEDIASTINUM AND ELLIOT: Heart is normal in size. Aorta is mildly calcified. BONES AND SOFT TISSUES: No acute abnormality. IMPRESSION: Findings concerning for multifocal pneumonia, possibly COVID-19 pneumonia. WSN: [id number] Ordering Physician: Etelvina Urban Dictated By: Stefano Wang MD Dictated Date/Time: 05/20/21 12:30 p Reviewed By: Stefano Wang MD Signed By: Stefano Wang MD Signed Date/Time: 05/20/21 12:30 pm Transcribed By: SHAJI Transcribed Date/Time: 05/20/21 12:29 pm Vital Signs Most recent to oldest [Reference Range]: 1 2 3 Height 177 cm (05/24/21 7:04 AM) 177 cm (05/23/21 3:54 PM) 177 cm (05/23/21 6:56 AM) Weight 65 kg (05/23/21 5:21 AM) 57.4 kg (05/20/21 6:13 PM) 57.4 kg (05/20/21 4:39 PM) Oxygen Saturation [94-100 %] 95 % (05/24/21 7:04 AM) 96 % (05/24/21 3:00 AM) 98 % (05/23/21 7:00 PM) Pulse Rate [55-90 bpm] 73 bpm (05/24/21 7:04 AM) 85 bpm (05/24/21 3:00 AM) 81 bpm (05/23/21 7:00 PM) Body Mass Index [18.5-24.99] 18.32 *L* (05/20/21 4:39 PM) Blood Pressure [90-138/55-84 mm Hg] 156/62mm Hg *H* (05/24/21 7:04 AM) 140/65mm Hg *H* (05/24/21 3:00 AM) 139/74mm Hg *H* (05/23/21 7:00 PM) Respiratory Rate [16-30 br/min] 18 br/min (05/24/21 7:49 AM) 18 br/min (05/24/21 7:04 AM) 18 br/min (05/24/21 3:00 AM) Temperature [96.8-100.4 DegF] 98.1 DegF (05/24/21 7:04 AM) 98.1 DegF (05/24/21 3:00 AM) 97.4 DegF (05/23/21 7:00 PM) Mode of Delivery (Oxygen) Room air (05/24/21 7:04 AM) Room air (05/24/21 3:00 AM) Room air (05/23/21 7:00 PM) Blood pressure sites Arm, left (05/24/21 7:04 AM) Arm, left (05/24/21 3:00 AM) Arm, left (05/23/21 7:00 PM) Temperature Route Oral (05/24/21 7:04 AM) Oral (05/24/21 3:00 AM) Oral (05/23/21 7:00 PM) Dry Weight 57.4 kg (05/20/21 4:39 PM) Social History Social History Type Response Sex Male
--- OUTSIDE RECORDS SUMMARY | 2024-01-30 16:27 | XMS_ITS | Continuity of Care Document ---
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 Date(s): 05/24/21 - 06/23/[address] [address]- Attending Physician: Not on Staff, Attending MD [...] 05/24/21 9:06:00 EST, Route to Pharmacy Electronically, [facility]/pharmacy #[id number], 177, cm, 05/24/21 7:04:00 EST, Height, 57.4, kg, 05/20/21 17:14:00 EST, Dry Weight Start Date: 05/24/21 Stop Date: 06/23/21 Status: Ordered Problem List Condition Effective Dates Status Health Status Inform ant Acquired immunodeficiency sy ndrome due to HIV-1(Confirmed) Active Diabetes mellitus type 2, uncontrolled(Confirmed) Active Underweight(Confirmed) Active Social History Social History Type Response Sex Male
[2024-01-30 16:28] LABS: Glucose, Whole Blood 562 mg/dL (60-115)
[2024-01-30 16:40] LABS: MANUAL DIFF FLAG NO
[2024-01-30 16:43] LABS: Appearance Urine Clear; Color Urine Yellow; Glucose Urine UA >=1000 mg/dL (Negative); Leukocyte Esterase Urine Negative (Negative); Nitrite Urine Negative (Negative); PH 5.5 (5.0-9.0); Specific Gravity - Urine >= 1.030 (1.005-1.025); UMIC TRIGGER UA YES; Urine Blood Negative (Negative); Urine Ketones Negative (Negative); Urine Protein Negative (Neg-Trace)
--- NOTE | 2024-01-30 16:43 | PC.NURSE ---
elsie contact number for discharge- per pt he does speak [place] well [phone]
--- NOTE | 2024-01-30 16:44 | PC.NURSE ---
patient a&ox3, vss, iv inserted, labs drawn, urine obtained, pt c/o 10/07 bilateral ac swelling, pt poc was 562- a provider was notified, call reynolds within reach, awaiting lab results, will continue to monitor
[2024-01-30 16:47] LABS: Basophils Percent Auto 0.5 % (0-2); Eosinophils Absolute Auto 0.1 X10*3/uL (0.0-0.4); Eosinophils Percent Auto 1.5 % (0-4); Hematocrit 32.3 % (42.0-52.0); Hemoglobin 10.7 g/dl (14.0-18.0); Imm Gran Abs Auto 0.04 X10*3/uL (0.00-0.03); Imm Gran Pct Auto 0.7 % (0.0-0.4); Lymphocytes Absolute Auto 1.1 X10*3/uL (1.2-4.9); Lymphocytes Percent Auto 20.7 % (20-40); Mean Corpuscular HGB Conc 33.1 g/dl (31.0-36.0); Mean Corpuscular Hemoglobin 26.2 pg (27.0-33.0); Mean Platelet Volume 10.2 fL (9.4-12.4); Monocytes Absolute Auto 0.4 X10*3/uL (0.1-1.2); Monocytes Percent Auto 8.1 % (2-11); Neutrophils Absolute Auto 3.7 x10*3/uL (2.0-8.3); Neutrophils Percent Auto 68.5 % (45-73); Platelet Count 207 X10*3/uL (160-400); Red Blood Count 4.09 X10*6/uL (4.60-5.80); Red Cell Distribution Width 13.8 % (11.0-16.0); White Blood Count 5.5 X10*3/uL (4.8-10.8)
[2024-01-30 17:20] LABS: Anion Gap 17 (12-20); Blood Urea Nitrogen 24 mg/dL (9-16); Calcium 8.9 mg/dL (8.4-10.2); Carbon Dioxide 26 mmol/L (22-29); Chloride 95 mmol/L (96-108); Creatinine Clr Calc Pharmacy 50.1; Estimated Glomerular Filt Rate 46; Glucose Random 605 mg/dL (60-115); Potassium 4.5 mmol/L (3.3-5.1); Sodium 133 mmol/L (135-145)
[2024-01-30 17:30] LABS: Amphetamine Screen Urine Not Detected (Not Detect); Barbiturates, Urine Not Detected (Not Detect); Benzodiazepines Screen Urine Not Detected (Not Detect); Buprenorphine Scr Not Detected (Not Detect); Cannabinoid Screen Urine Not Detected (Not Detect); Cocaine Screen Urine Not Detected (Not Detect); Fentanyl, urine POSITIVE (Not Detect); Methadone Screen, Urine Positive (Not Detect); Opiate Screen Urine POSITIVE (Not Detect); Oxycodone Screen Urine Not Detected (Not Detect); Phencyclidine Screen Urine Not Detected (Not Detect)
[2024-01-30] MEDS: Lidocaine HCl 1 % MPF 5 ML VIAL 10 ML INFILTRATI (17:37)
[2024-01-30] MEDS: vancomycin/NS 2,000 MG/500 ML PLAST..BAG 250 MG IV (17:37)
[2024-01-30] MEDS: 0.9 % Sodium Chloride 1,000 ML 999 ML IV (17:40)
[2024-01-30] MEDS: Insulin Lispro 100 UNIT/ML 3 ML VIAL 14 UNIT SUBCUT (17:42)
--- NOTE | 2024-01-30 17:57 | ED_ITS ---
HPI - General Adult General Chief complaint: General Medical Stated complaint: bump on arm @injection site, hyperglycemic Time Seen by Provider: 01/30/24 16:58 Source: patient Mode of arrival: ambulatory Limitations: no limitations History of Present Illness ED Provider: vivi HERNANDEZ narrative: Patient IVDA user comes here with right antecubital swelling last 2 weeks started after patient use that area for IVDA use denied using it currently last use was 1 week ago in the right forearm just below the swelling no fever no chills also for last few days patient noticed blood sugar is elevated was reading high on arrival POC was 562 no nausea no vomiting patient is otherwise feeling at baseline does have history of HIV with undetectable viral load patient taking his Lantus insulin on a regular basis no fever no chills no abdominal pain Related Data Home Medications ?Medication ?Instructions ?Recorded ?Confirmed insulin glargine 100 unit/mL (3 10 unit subcut BID 04/14/20 12/15/20 mL) subcutaneous pen (Lantus Solostar U-100 Insulin) insulin lispro 100 unit/mL 10.5 unit subcut BEDTIME 04/14/20 12/15/20 subcutaneous half-unit pen (Humalog Arnaldo KwikPen (U-100)) pioglitazone 45 mg tablet 45 mg PO DAILY 04/14/20 12/15/20 Previous Rx's ?Medication ?Instructions ?Recorded ondansetron HCl 4 mg tablet 4 mg PO Q6H PRN pain #8 tabs 04/12/20 (Zofran) oxycodone-acetaminophen 5 mg-325 1 tab PO TID PRN pain #9 tabs 04/12/20 mg tablet (Percocet) omeprazole 20 mg capsule,delayed 20 mg PO BID #60 caps 04/15/20 release cephalexin 500 mg capsule 500 mg PO Q8H 10 days #30 caps 11/27/20 naproxen 500 mg tablet (Naprosyn) 500 mg PO BID PRN pain #20 tabs 11/27/20 sulfamethoxazole 800 1 tab PO Q12H #20 tabs 11/27/20 mg-trimethoprim 160 mg tablet (Bactrim DS) ciprofloxacin 0.2 %-hydrocortisone 3 drp otic (ears) Q12H 7 days #10 01/09/22 1 % ear drops,suspension (Cipro HC) mL cephalexin 500 mg capsule 500 mg PO QID 10 days #40 caps 01/30/24 doxycycline hyclate 100 mg tablet 100 mg PO BID #20 tabs 01/30/24 Allergies Allergy/AdvReac Type Severity Reaction Status Date / Time No Known Allergies Allergy Verified 01/30/24 16:10 [No Known Allergies*] Review of Systems 2 Review of Systems: Yes all other systems are reviewed and are negative PMFSH Past Medical History Medical History Heroin abuse Abscess of antecubital fossa Methadone use Gallstone Diabetes HIV (human immunodeficiency virus infection) Surgical History S/P appendectomy Social History Social History Alcohol intake: never Patient Tobacco Use Status: Never used Tobacco Smoked in Last 30 Days: No Use of substances other than those prescribed or required for medical reasons: Yes Substance Use Type: Heroin Advance Directives: No Advance Directives Information Provided: No Do you have a plan to hurt others: No Plan Physical Exam ED Vital Signs: Vital Signs - 24 hr 01/30/24 16:07 01/30/24 18:55 01/30/24 19:25 Temperature 98.0 F 97.6 F 98.0 F Pulse Rate 87 74 72 Respiratory Rate 18 14 18 Blood Pressure 142/53 H 150/65 H 138/72 Pulse Oximetry 95 99 98 Oxygen Delivery Method Room Air Room Air Room Air 01/30/24 20:14 01/30/24 21:56 Temperature 97.8 F 98.3 F Pulse Rate 72 87 Respiratory Rate 12 16 Blood Pressure 138/71 130/78 Pulse Oximetry 94 98 Oxygen Delivery Method Room Air Room Air BMI result Body Mass Index 23.0 Appearance: Alert. Oriented X3. No acute distress. Eyes: PERRLA, No Nystagmus ENT: Pharynx normal. Oral Mucosa moist Neck: Normal inspection. Neck supple. CVS: Normal heart rate and rhythm. Pulses normal. Respiratory: No respiratory distress. Equal air entry bilateral, no wheezing/rales/rhonchi Abdomen: Soft and nontender. Bowel sounds are present, no mass palpable, no CVA tenderness Skin: Skin warm and dry. Right with 3 x 3 cm semi solid swelling in the antecubital area Extremities: No lower extremity edema. No calf tenderness Neuro: Oriented X 3. No motor deficit. No sensory deficit.No cerebellar signs , cranial nerves II-XII intact Medications Administered Discontinued Medications Generic Name Dose Route Start Last Admin Trade Name Nicho PRN Reason Stop Dose Admin Sodium Chloride 1,000 mls @ 999 mls/hr 01/30/24 17:08 01/30/24 20:00 Ns IV 01/30/24 18:08 Infused .Q1H1M ONE Infusion Vancomycin HCl 2,000 mg in 500 mls @ 250 mls/hr 01/30/24 17:08 01/30/24 19:40 Vancomycin/Ns IV 01/30/24 19:07 Infused ONCE ONE Infusion Insulin Human Lispro 14 unit 01/30/24 17:08 01/30/24 17:42 Insulin Lispro 100 Unit/Ml 3 Ml Vial SUBCUT 01/30/24 17:09 14 unit ONCE ONE Administration Lidocaine HCl 10 ml 01/30/24 17:27 01/30/24 17:37 Lidocaine Hcl 1 % Mpf 5 Ml Vial INFILTRATI 01/30/24 17:28 10 ml ONCE ONE Administration Procedures Abscess I/D Site: upper extremity (Antecubital) Side (if applicable): right Local Anesthetic: lidocaine 1% Amount of anesthesia used (mL): 4 Technique: needle aspiration and incised with blade Amount of fluid expressed (mL): 1 Sent for culture/gram staining?: Yes Irrigation: No Packing used?: none Medical Decision Making Medical Decision Making [facility] Narrative: Patient with right antecubital swelling after IVDA use with elevated POC with history of HIV no fever no chills white counts are normal needle aspiration and I and D was done of the right antecubital abscess no pus drained except for few drops of serosanguineous fluid ultrasound done at bedside showed no abscess collection. Per records patient has similar swelling since 2020. Will prescribe doxycycline and cephalexin advised to follow with PCP and stop using IV drugs patient's blood sugar improved during stay in the ER after IV fluids and insulin novel POC is 256 patient is supposed to take 50 units of Lantus will take that when he reaches home Differential Diagnosis Differential Diagnoses: The differential diagnosis associated with the presentation includes Abscess/cellulitis Lab Data [facility] Lab Attestation statement: I reviewed the patient's lab results. 01/30/24 16:34 01/30/24 16:34 Labs: Lab Results 01/30/24 01/30/24 01/30/24 Range/Units 16:23 16:34 18:41 WBC 5.5 (4.8-10.8) X10*3/uL RBC 4.09 L (4.60-5.80) X10*6/uL Hgb 10.7 L (14.0-18.0) g/dl Hct 32.3 L (42.0-52.0) % MCV 79.0 L (80.0-98.0) fL MCH 26.2 L (27.0-33.0) pg MCHC 33.1 (31.0-36.0) g/dl RDW 13.8 (11.0-16.0) % Plt Count 207 D (160-400) X10*3/uL MPV 10.2 (9.4-12.4) fL Immature Gran % (Auto) 0.7 H (0.0-0.4) % Neut % (Auto) 68.5 (45-73) % Lymph % (Auto) 20.7 (20-40) % [place] % (Auto) 8.1 (2-11) % Eos % (Auto) 1.5 (0-4) % Baso % (Auto) 0.5 (0-2) % Lymph # (Auto) 1.1 L (1.2-4.9) X10*3/uL [place] # (Auto) 0.4 (0.1-1.2) X10*3/uL Eos # (Auto) 0.1 (0.0-0.4) X10*3/uL Baso # (Auto) 0.0 (0.0-0.2) X10*3/uL Abs Immat Gran (auto) 0.04 H (0.00-0.03) X10*3/uL Absolute Neuts (auto) 3.7 (2.0-8.3) x10*3/uL Absolute Nucleated RBC 0.000 (0.0-0.012) X10*3/uL Nucleated RBC % (auto) 0.0 (0.0-0.2) /100WBC Sodium 133 L (135-145) mmol/L Potassium 4.5 (3.3-5.1) mmol/L Chloride 95 L (96-108) mmol/L Carbon Dioxide 26 (22-29) mmol/L Anion Gap 17 (12-20) BUN 24 H (9-16) mg/dL Creatinine 1.51 H (0.5-1.4) mg/dL Estim Creat Clear Calc 50.1 Estimated GFR 46 POC Glucose 562 H* 414 H* (60-115) mg/dL Random Glucose 605 H* (60-115) mg/dL Calcium 8.9 D (8.4-10.2) mg/dL Urine Color Yellow Urine Appearance Clear Urine pH 5.5 (5.0-9.0) Ur Specific [place] >= 1.030 H (1.005-1.025) Urine Protein Negative (Neg-Trace) mg/dL Urine Glucose (UA) >=1000 H (Negative) mg/dL Urine Ketones Negative (Negative) mg/dL Urine Blood Negative (Negative) Urine Nitrite Negative (Negative) Ur Leukocyte Esterase Negative (Negative) Urine RBC 0-2 (0-2) /HPF Urine WBC 0-5 (0-5) /HPF Ur Squamous Epith Cells 0-2 (0-2) /HPF Urine Bacteria None Seen (None Seen) Hyaline Casts 0-2 (0-2) /LPF Urine Opiates Screen POSITIVE H (Not Detect) Ur Buprenorphine Scrn Not Detected (Not Detect) ng/mL Ur Oxycodone Screen Not Detected (Not Detect) ng/mL Urine Methadone Screen Positive H (Not Detect) ng/mL Urine Fentanyl Screen POSITIVE H (Not Detect) Ur Barbiturates Screen Not Detected (Not Detect) Ur Phencyclidine Scrn Not Detected (Not Detect) Ur Amphetamines Screen Not Detected (Not Detect) U Benzodiazepines Scrn Not Detected (Not Detect) Urine Cocaine Screen Not Detected (Not Detect) U Marijuana (THC) Screen Not Detected (Not Detect) 01/30/24 Range/Units 21:05 WBC (4.8-10.8) X10*3/uL RBC (4.60-5.80) X10*6/uL Hgb (14.0-18.0) g/dl Hct (42.0-52.0) % MCV (80.0-98.0) fL MCH (27.0-33.0) pg MCHC (31.0-36.0) g/dl RDW (11.0-16.0) % Plt Count (160-400) X10*3/uL MPV (9.4-12.4) fL Immature Gran % (Auto) (0.0-0.4) % Neut % (Auto) (45-73) % Lymph % (Auto) (20-40) % [place] % (Auto) (2-11) % Eos % (Auto) (0-4) % Baso % (Auto) (0-2) % Lymph # (Auto) (1.2-4.9) X10*3/uL [place] # (Auto) (0.1-1.2) X10*3/uL Eos # (Auto) (0.0-0.4) X10*3/uL Baso # (Auto) (0.0-0.2) X10*3/uL Abs Immat Gran (auto) (0.00-0.03) X10*3/uL Absolute Neuts (auto) (2.0-8.3) x10*3/uL Absolute Nucleated RBC (0.0-0.012) X10*3/uL Nucleated RBC % (auto) (0.0-0.2) /100WBC Sodium (135-145) mmol/L Potassium (3.3-5.1) mmol/L Chloride (96-108) mmol/L Carbon Dioxide (22-29) mmol/L Anion Gap (12-20) BUN (9-16) mg/dL Creatinine (0.5-1.4) mg/dL Estim Creat Clear Calc Estimated GFR POC Glucose 256 H (60-115) mg/dL Random Glucose (60-115) mg/dL Calcium (8.4-10.2) mg/dL Urine Color Urine Appearance Urine pH (5.0-9.0) Ur Specific [place] (1.005-1.025) Urine Protein (Neg-Trace) mg/dL Urine Glucose (UA) (Negative) mg/dL Urine Ketones (Negative) mg/dL Urine Blood (Negative) Urine Nitrite (Negative) Ur Leukocyte Esterase (Negative) Urine RBC (0-2) /HPF Urine WBC (0-5) /HPF Ur Squamous Epith Cells (0-2) /HPF Urine Bacteria (None Seen) Hyaline Casts (0-2) /LPF Urine Opiates Screen (Not Detect) Ur Buprenorphine Scrn (Not Detect) ng/mL Ur Oxycodone Screen (Not Detect) ng/mL Urine Methadone Screen (Not Detect) ng/mL Urine Fentanyl Screen (Not Detect) Ur Barbiturates Screen (Not Detect) Ur Phencyclidine Scrn (Not Detect) Ur Amphetamines Screen (Not Detect) U Benzodiazepines Scrn (Not Detect) Urine Cocaine Screen (Not Detect) U Marijuana (THC) Screen (Not Detect) Critical Care Time Critical Care Time Critical Care Time: Yes Total Critical Care Time: 40 Attestation: The patient was critically ill with a high probability of imminent or life threatening deterioration. I spent greater than ?45??minutes of discontinuous time evaluating the patient,delivering critical care at the bedside, discussing and evaluating pertinent data with consultants. Critical care time does not include time spent performing separately billable procedures or teaching. Total time spent performing critical care was ?40??minutes. Discharge Plan Discharge Clinical Impression: Abscess of antecubital fossa, Hyperglycemia due to diabetes mellitus Patient Disposition: Home, Self-Care Instructions: Diabetic Hyperglycemia (ED), Abscess Incision and Drainage (DC) Additional Instructions: Your chronic abscess in right antecubital area with got inflamed now Take antibiotics as prescribed Stop using drugs Take your insulin tonight as prescribed Prescriptions: New cephalexin 500 mg capsule 500 mg PO QID 10 Days Qty: 40 0RF doxycycline hyclate 100 mg tablet 100 mg PO BID Qty: 20 0RF No Action omeprazole 20 mg capsule,delayed release(DR/EC) 20 mg PO BID Qty: 60 0RF oxycodone-acetaminophen [Percocet] 5-325 mg tablet 1 tab PO TID PRN (Reason: pain) Qty: 9 0RF ondansetron HCl [Zofran] 4 mg tablet 4 mg PO Q6H PRN (Reason: pain) Qty: 8 0RF sulfamethoxazole-trimethoprim [Bactrim DS] 800-160 mg tablet 1 tab PO Q12H Qty: 20 0RF cephalexin 500 mg capsule 500 mg PO Q8H 10 Days Qty: 30 0RF naproxen [Naprosyn] 500 mg tablet 500 mg PO BID PRN (Reason: pain) Qty: 20 0RF Cipro HC 0.2-1 % drops,suspension 3 drp otic (ears) Q12H 7 Days Qty: 10 0RF insulin lispro [Humalog Arnaldo KwikPen U-100] 100 unit/mL insulin pen, half- unit 10.5 unit subcut BEDTIME Lantus Solostar U-100 Insulin 100 unit/mL (3 mL) insulin pen 10 unit subcut BID pioglitazone 45 mg tablet 45 mg PO DAILY Interventions: ED Discharge Assessment Last Done: 01/30/24 21:56 Discharge Date/Time: 01/30/24 21:57 Print Language: Malagasy
[2024-01-30 18:12] LABS: Bacteria Urine None Seen (None Seen); Hyaline Casts Urine 0-2 /LPF (0-2); RBC Urine 0-2 /HPF (0-2); Squamous Epithelial Cell Urine 0-2 /HPF (0-2); WBC Urine 0-5 /HPF (0-5)
--- NOTE | 2024-01-30 18:40 | PC.NURSE ---
Per miah Garcia to hang abx without blood cultures.
[2024-01-30 18:45] LABS: Glucose, Whole Blood 414 mg/dL (60-115)
[2024-01-30 18:55] VITALS: BP 150/65; PULSE 74; RESP 14; TEMP 36.4; O2SAT 99
[2024-01-30 19:25] VITALS: BP 138/72; PULSE 72; RESP 18; TEMP 36.7; O2SAT 98
[2024-01-30 20:14] VITALS: BP 138/71; PULSE 72; RESP 12; TEMP 36.6; O2SAT 94
[2024-01-30 21:09] LABS: Glucose, Whole Blood 256 mg/dL (60-115)
[2024-01-30 21:56] VITALS: BP 130/78; PULSE 87; RESP 16; TEMP 36.8; O2SAT 98
== END 2024-01-30 21:57 | disposition home or self-care (01) ==
PROVIDERS: Emergency Provider Internal Medicine
DX: L02.413 Cutaneous abscess of right upper limb (principal); E11.65 Type 2 diabetes mellitus with hyperglycemia; F19.10 Other psychoactive substance abuse, uncomplicated; B20 Human immunodeficiency virus [HIV] disease; Z79.4 Long term (current) use of insulin; Z79.899 Other long term (current) drug therapy
CPT/HCPCS: 10060; 10160; 36415; 80048; 80307; 81001; 82947; 85025; 87070; 87077; 87186; 87205; 96365; 96366; 99285; J2003; J3370

== ENCOUNTER 2024-02-06 11:41 | Emergency (ER) | payer OTHER, SELFPAY ==
--- NOTE | ~2024-02-06 | XR_ITS ---
EXAMINATION: XR ELBOW, RIGHT CLINICAL INFORMATION: Antecubital abscess COMPARISON: 11/27/2020 TECHNIQUE: AP, lateral, and oblique views of the right elbow. FINDINGS: No fracture, dislocation or destructive process. Radial head intact. There does appear to be soft tissue swelling and induration in the anterior subcutaneous antecubital soft tissues. There is a small spur off the olecranon. XR/XR elbow RT min 3V IMPRESSION: No underlying acute osseous abnormality or destructive lesion. Electronically signed by: Olvin Ruiz MD 02/06/2024 04:21 PM EDT
[2024-02-06 12:12] VITALS: BP 164/73; BP 170/90; PULSE 100; PULSE 89; RESP 18; TEMP 36.8; O2SAT 96; O2SAT 97; BMI 23.7
--- NOTE | 2024-02-06 12:32 | ED_ITS ---
HPI - General Adult General Chief complaint: Skin/Abscess/Foreign Body Stated complaint: INF R ARM D/T IVDA,OOZING YELLOW PUSS PER EMS Time Seen by Provider: 02/06/24 12:08 History of Present Illness ED Provider: Emma HERNANDEZ narrative: 68-year-old male with past medical history of HIV, IV drug use presenting for right antecubital abscess. Patient presented for this abscess earlier this month and was discharged with antibiotics after needle aspiration attempt. 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 He states that it has been draining pus the past few days and this is concerning for him. He denies fevers, chills, nausea, vomiting. He states that he is not using IV drugs at the current moment. Patient has no other complaints Related Data Home Medications ?Medication ?Instructions ?Recorded ?Confirmed insulin glargine 100 unit/mL (3 10 unit subcut BID 04/14/20 12/15/20 mL) subcutaneous pen (Lantus Solostar U-100 Insulin) insulin lispro 100 unit/mL 10.5 unit subcut BEDTIME 04/14/20 12/15/20 subcutaneous half-unit pen (Humalog Arnaldo KwikPen (U-100)) pioglitazone 45 mg tablet 45 mg PO DAILY 04/14/20 12/15/20 Previous Rx's ?Medication ?Instructions ?Recorded ondansetron HCl 4 mg tablet 4 mg PO Q6H PRN pain #8 tabs 04/12/20 (Zofran) oxycodone-acetaminophen 5 mg-325 1 tab PO TID PRN pain #9 tabs 04/12/20 mg tablet (Percocet) omeprazole 20 mg capsule,delayed 20 mg PO BID #60 caps 04/15/20 release cephalexin 500 mg capsule 500 mg PO Q8H 10 days #30 caps 11/27/20 naproxen 500 mg tablet (Naprosyn) 500 mg PO BID PRN pain #20 tabs 11/27/20 sulfamethoxazole 800 1 tab PO Q12H #20 tabs 11/27/20 mg-trimethoprim 160 mg tablet (Bactrim DS) ciprofloxacin 0.2 %-hydrocortisone 3 drp otic (ears) Q12H 7 days #10 01/09/22 1 % ear drops,suspension (Cipro HC) mL cephalexin 500 mg capsule 500 mg PO QID 10 days #40 caps 01/30/24 doxycycline hyclate 100 mg tablet 100 mg PO BID #20 tabs 01/30/24 Allergies Allergy/AdvReac Type Severity Reaction Status Date / Time No Known Allergies Allergy Verified 02/06/24 12:22 [No Known Allergies*] Review of Systems 2 Review of Systems: Patient complains of discomfort to right antecubital region Patient denies fevers, chills, head pain, neck pain, chest pain, shortness of breath, nausea, vomiting, diarrhea, urinary symptoms Yes all other systems are reviewed and are negative [facility] Past Medical History Attestation statement: The following information was validated with the patient. [facility] Narrative: HIV, IV drug use Source: old records reviewed Medical History Heroin abuse Abscess of antecubital fossa Methadone use Gallstone Diabetes HIV (human immunodeficiency virus infection) Surgical History S/P appendectomy Social History Social History Alcohol intake: never Patient Tobacco Use Status: Never used Tobacco Smoked in Last 30 Days: No Use of substances other than those prescribed or required for medical reasons: Yes Substance Use Type: Heroin and IV Drugs Substance Use Frequency: Chronic Longstanding Advance Directives: No Advance Directives Information Provided: No Do you have a plan to hurt others: No Plan Physical Exam ED Vital Signs: Vital Signs - 24 hr 02/06/24 12:12 Temperature 98.2 F Pulse Rate 100 Respiratory Rate 18 Blood Pressure 164/73 H Pulse Oximetry 97 Oxygen Delivery Method Room Air BMI result Body Mass Index 23.7 Medications Administered Discontinued Medications Generic Name Dose Route Start Last Admin Trade Name Freq PRN Reason Stop Dose Admin Doxycycline Monohydrate 100 mg 02/06/24 13:48 02/06/24 13:54 Doxycycline Monohydrate 100 Mg Capsule PO 02/06/24 13:49 100 mg ONCE ONE Administration Lidocaine HCl 10 ml 02/06/24 12:47 02/06/24 13:55 Lidocaine Hcl 1 % 10 Ml Vial INFILTRATI 02/06/24 12:48 10 ml ONCE ONE Administration Medical Decision Making Medical Decision Making [facility] Narrative: This is a 68-year-old male presenting for right antecubital abscess. I ordered lab work to assess for white count. Patient's abscess was marked at his last presentation and today it is not expanding beyond the margins that were marked. I will use ultrasound to assess for fluid collection as there is mild fluctuance and if I see a big enough collection to drain I will perform a stab incision. Lab work is negative for white count; creatinine is slightly elevated however lower than it was last week. There is no concern for BRITTNY. Alk-phos slightly elevated however patient has no abdominal complaints or abdominal tenderness. Ultrasound demonstrated small fluid collection and xray is not showing osseous involvement or signficiant subq gas. I&D performed at bedside with mild serosanginous drainage. Packing applied with overlying nonadherent dressing. I demarcated the abscess once again and told patient to return if it spreads beyond the marked area. I gave him a dose of doxycycline here and he again told me thaty he had keflex and doxy at home. I gave him additional return precautions and told him to have his wound checked by a doctor in 2-3 days Differential Diagnosis Differential Diagnoses: The differential diagnosis associated with the presentation includes Abscess, cellulitis At this time there is no concern for systemic infection, necrotizing fasciitis, sepsis or bacteremia Lab Data 02/06/24 13:03 02/06/24 13:03 Labs: Lab Results 02/06/24 Range/Units 13:03 WBC 5.1 (4.8-10.8) X10*3/uL RBC 4.76 (4.60-5.80) X10*6/uL Hgb 12.6 L (14.0-18.0) g/dl Hct 37.2 L (42.0-52.0) % MCV 78.2 L (80.0-98.0) fL MCH 26.5 L (27.0-33.0) pg MCHC 33.9 (31.0-36.0) g/dl RDW 13.5 (11.0-16.0) % Plt Count 219 (160-400) X10*3/uL MPV 9.9 (9.4-12.4) fL Immature Gran % (Auto) 0.4 (0.0-0.4) % Neut % (Auto) 78.9 H (45-73) % Lymph % (Auto) 14.0 L (20-40) % [place] % (Auto) 5.7 (2-11) % Eos % (Auto) 0.6 (0-4) % Baso % (Auto) 0.4 (0-2) % Lymph # (Auto) 0.7 L (1.2-4.9) X10*3/uL [place] # (Auto) 0.3 (0.1-1.2) X10*3/uL Eos # (Auto) 0.0 (0.0-0.4) X10*3/uL Baso # (Auto) 0.0 (0.0-0.2) X10*3/uL Abs Immat Gran (auto) 0.02 (0.00-0.03) X10*3/uL Absolute Neuts (auto) 4.0 (2.0-8.3) x10*3/uL Absolute Nucleated RBC 0.000 (0.0-0.012) X10*3/uL Nucleated RBC % (auto) 0.0 (0.0-0.2) /100WBC Sodium 126 L (135-145) mmol/L Potassium 4.7 (3.3-5.1) mmol/L Chloride 88 L (96-108) mmol/L Carbon Dioxide 27 (22-29) mmol/L Anion Gap 16 (12-20) BUN 30 H (9-16) mg/dL Creatinine 1.47 H (0.5-1.4) mg/dL Estim Creat Clear Calc 53.5 Estimated GFR 48 Random Glucose 892 H* (60-115) mg/dL Calcium 9.6 D (8.4-10.2) mg/dL Total Bilirubin 0.4 (0.0-1.0) mg/dL AST 15 (5-37) U/L ALT 14 (0-40) U/L Alkaline Phosphatase 156 H (39-117) U/L Total Protein 8.5 H (6.5-8.0) g/dL Albumin 4.0 (3.5-5.0) g/dL Discharge Plan Discharge Clinical Impression: Abscess Patient Disposition: Home, Self-Care Additional Instructions: contin?a tomando tus antibi?ticos Debe regresar al departamento de emergencias si west absceso se extiende m?s all? del ?alin marcada o si presenta fiebre, escalofr?os, n?useas, v?mitos o dolor que empeora. Ferny que west m?dico revise west herida en 2 o 3 d?as para asegurarse de que est? mejorando. Prescriptions: No Action omeprazole 20 mg capsule,delayed release(DR/EC) 20 mg PO BID Qty: 60 0RF oxycodone-acetaminophen [Percocet] 5-325 mg tablet 1 tab PO TID PRN (Reason: pain) Qty: 9 0RF ondansetron HCl [Zofran] 4 mg tablet 4 mg PO Q6H PRN (Reason: pain) Qty: 8 0RF sulfamethoxazole-trimethoprim [Bactrim DS] 800-160 mg tablet 1 tab PO Q12H Qty: 20 0RF cephalexin 500 mg capsule 500 mg PO Q8H 10 Days Qty: 30 0RF naproxen [Naprosyn] 500 mg tablet 500 mg PO BID PRN (Reason: pain) Qty: 20 0RF Cipro HC 0.2-1 % drops,suspension 3 drp otic (ears) Q12H 7 Days Qty: 10 0RF cephalexin 500 mg capsule 500 mg PO QID 10 Days Qty: 40 0RF doxycycline hyclate 100 mg tablet 100 mg PO BID Qty: 20 0RF insulin lispro [Humalog Arnaldo KwikPen U-100] 100 unit/mL insulin pen, half- unit 10.5 unit subcut BEDTIME Lantus Solostar U-100 Insulin 100 unit/mL (3 mL) insulin pen 10 unit subcut BID pioglitazone 45 mg tablet 45 mg PO DAILY Print Language: Mohawk
[2024-02-06 13:09] LABS: MANUAL DIFF FLAG NO
[2024-02-06 13:11] LABS: Basophils Percent Auto 0.4 % (0-2); Eosinophils Percent Auto 0.6 % (0-4); Hematocrit 37.2 % (42.0-52.0); Hemoglobin 12.6 g/dl (14.0-18.0); Imm Gran Abs Auto 0.02 X10*3/uL (0.00-0.03); Imm Gran Pct Auto 0.4 % (0.0-0.4); Lymphocytes Absolute Auto 0.7 X10*3/uL (1.2-4.9); Mean Corpuscular HGB Conc 33.9 g/dl (31.0-36.0); Mean Corpuscular Hemoglobin 26.5 pg (27.0-33.0); Mean Corpuscular Volume 78.2 fL (80.0-98.0); Mean Platelet Volume 9.9 fL (9.4-12.4); Monocytes Absolute Auto 0.3 X10*3/uL (0.1-1.2); Monocytes Percent Auto 5.7 % (2-11); Neutrophils Percent Auto 78.9 % (45-73); Platelet Count 219 X10*3/uL (160-400); Red Blood Count 4.76 X10*6/uL (4.60-5.80); Red Cell Distribution Width 13.5 % (11.0-16.0); White Blood Count 5.1 X10*3/uL (4.8-10.8)
[2024-02-06 13:40] LABS: Alanine Aminotransferase 14 U/L (0-40); Alkaline Phosphatase 156 U/L (39-117); Anion Gap 16 (12-20); Aspartate Amino Transferase 15 U/L (5-37); Bilirubin Total 0.4 mg/dL (0.0-1.0); Blood Urea Nitrogen 30 mg/dL (9-16); Calcium 9.6 mg/dL (8.4-10.2); Carbon Dioxide 27 mmol/L (22-29); Chloride 88 mmol/L (96-108); Creatinine Clr Calc Pharmacy 53.5; Estimated Glomerular Filt Rate 48; Potassium 4.7 mmol/L (3.3-5.1); Sodium 126 mmol/L (135-145); Total Protein 8.5 g/dL (6.5-8.0)
[2024-02-06] MEDS: Doxycycline Monohydrate 100 MG CAPSULE PO (13:54)
[2024-02-06] MEDS: Lidocaine HCl 1 % 10 ML VIAL INFILTRATI (13:55)
[2024-02-06 14:04] LABS: Glucose Random 892 mg/dL (60-115)
[2024-02-06] MEDS: Insulin Regular, Human 100 UNIT/ML 10 ML VIAL 14 UNIT SUBCUT (14:29)
[2024-02-06 14:41] VITALS: BP 146/81; PULSE 99; RESP 18; TEMP 37.1; O2SAT 100
[2024-02-06] MEDS: 0.9 % Sodium Chloride 1,000 ML 999 ML IV (14:42)
[2024-02-06 14:46] LABS: VBG Base Excess 5.4 mmol/L; VBG HCO3 32 mmol/L (22-26); VBG pCO2 56 mmHg; VBG pH 7.37 (7.32-7.43); VBG pO2 41 mmHg
[2024-02-06 14:46] LABS: Venous Blood Gas Refer to POC result
[2024-02-06 14:56] LABS: Beta-Hydroxybutyrate 1.23 mmol/L (0.02-0.27)
[2024-02-06 16:02] LABS: Glucose, Whole Blood 582 mg/dL (60-115)
--- NOTE | 2024-02-06 16:16 | MHC.EDTECH ---
pt refused vitals , requesting to leave AMA
[2024-02-06 16:34] VITALS: BP 140/82; PULSE 90; RESP 18; TEMP 37.1; O2SAT 98
== END 2024-02-06 16:35 | disposition left against medical advice (07) ==
PROVIDERS: Emergency Provider Student in an Organized Health Care Education/Training Program
DX: L02.413 Cutaneous abscess of right upper limb (principal); B20 Human immunodeficiency virus [HIV] disease; E11.9 Type 2 diabetes mellitus without complications; F11.20 Opioid dependence, uncomplicated; Z79.4 Long term (current) use of insulin; Z79.899 Other long term (current) drug therapy
CPT/HCPCS: 10060; 36415; 73080; 80053; 82010; 82803; 82947; 85025; 87070; 87077; 87186; 87205; 96360; 99284; J2003

== ENCOUNTER 2024-02-11 11:44 | Emergency (ER) | payer OTHER, SELFPAY ==
[2024-02-11 11:54] VITALS: BP 138/78; PULSE 102; PULSE 107; RESP 18; TEMP 36.8; O2SAT 96; O2SAT 99; BMI 26.1
[2024-02-11 12:03] LABS: Glucose, Whole Blood > 600 mg/dL (60-115)
--- NOTE | 2024-02-11 12:09 | ED.GENADULT ---
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 Patient was recently seen and treated in our ED for similar symptoms on 02/06/2024, abscess was I&D at that time. Patient unsure if he took his insulin today. Poor historian. Denies fever, chills, cough, abdominal pain, polyuria or drainage from abscess site. Related Data Home Medications ?Medication ?Instructions ?Recorded ?Confirmed insulin glargine 100 unit/mL (3 10 unit subcut BID 04/14/20 12/15/20 mL) subcutaneous pen (Lantus Solostar U-100 Insulin) insulin lispro 100 unit/mL 10.5 unit subcut BEDTIME 04/14/20 12/15/20 subcutaneous half-unit pen (Humalog Arnaldo KwikPen (U-100)) pioglitazone 45 mg tablet 45 mg PO DAILY 04/14/20 12/15/20 Previous Rx's ?Medication ?Instructions ?Recorded ondansetron HCl 4 mg tablet 4 mg PO Q6H PRN pain #8 tabs 04/12/20 (Zofran) oxycodone-acetaminophen 5 mg-325 1 tab PO TID PRN pain #9 tabs 04/12/20 mg tablet (Percocet) omeprazole 20 mg capsule,delayed 20 mg PO BID #60 caps 04/15/20 release cephalexin 500 mg capsule 500 mg PO Q8H 10 days #30 caps 11/27/20 naproxen 500 mg tablet (Naprosyn) 500 mg PO BID PRN pain #20 tabs 11/27/20 sulfamethoxazole 800 1 tab PO Q12H #20 tabs 11/27/20 mg-trimethoprim 160 mg tablet (Bactrim DS) ciprofloxacin 0.2 %-hydrocortisone 3 drp otic (ears) Q12H 7 days #10 01/09/22 1 % ear drops,suspension (Cipro HC) mL cephalexin 500 mg capsule 500 mg PO QID 10 days #40 caps 01/30/24 doxycycline hyclate 100 mg tablet 100 mg PO BID #20 tabs 01/30/24 Allergies Allergy/AdvReac Type Severity Reaction Status Date / Time No Known Allergies Allergy Verified 02/11/24 12:01 [No Known Allergies*] Review of Systems Review of Systems: Yes all other systems are reviewed and are negative Constitutional: Constitutional: Reports as per [facility] Past Medical History Attestation statement: The following information was validated with the patient. Source: old records reviewed Medical History Heroin abuse Abscess of antecubital fossa Methadone use Gallstone Diabetes HIV (human immunodeficiency virus infection) Surgical History S/P appendectomy Social History Social History Alcohol intake: former Patient Tobacco Use Status: Never used Tobacco Smoked in Last 30 Days: No Use of substances other than those prescribed or required for medical reasons: No Substance Use Type: Heroin and IV Drugs Advance Directives: No Advance Directives Information Provided: Yes Physical Exam ED Vital Signs: Vital Signs - 24 hr 02/11/24 11:54 02/11/24 14:11 Temperature 98.2 F 97.5 F Pulse Rate 102 H 89 Respiratory Rate 18 18 Blood Pressure 109/57 L Pulse Oximetry 96 97 Oxygen Delivery Method Room Air Room Air BMI result Body Mass Index 26.1 Const General: cooperative, healthy appearing and no acute distress Orientation/consciousness: patient oriented x3 Limitations: no limitations HENMT Other: Dry mucous membrane Head: Yes normal to inspection and Yes atraumatic Ears: hearing grossly normal bilaterally General nose exam: Normal external nose present Face and sinus: Yes normal facial exam Eyes General: appearance normal, both eyes and all related structures EOM: EOMs intact bilaterally Neck Neck: Yes normal visual inspection and Yes no meningeal signs Resp Effort & Inspection: normal respiratory effort and no respiratory distress Auscultation: clear to auscultation bilaterally Cardio Rate: regular rate Heart sounds: S1 normal heart sound present and S2 normal heart sound present GI Inspection: Yes normal to inspection Palpation (GI): Soft to palpation, nontender, no guarding and not rigid Skin Rashes: no rashes Wounds: no wounds Neuro Other: Pinpoint pupils bilaterally General: patient oriented x3, tone normal and no meningeal signs Cranial nerves: Yes CN's II-XII intact bilaterally Extrem Other: + indurated abscess noted to right antecubital region. No overlying erythema/cellulitis. No warmth. Nontender. No fluctuance. Course Course Course Narrative: -1413--no leukocytosis. Initial glucose 677, anion gap of 20, w/ +BRITTNY with BUN 34 & creatinine 1.76 -lactic acid 5.8 > likely from ketosis. -repeat glucose 407 after IVF. Will give additional fluids and repeat -1515--repeat glucose 202 > 3rd L IVF running. Pending repeat BMP/lactic acid -1600--repeat BMP with mild improvement in BRITTNY. Lactic acid still elevated to 4.4 (appears chronic). Discussed with patient importance of monitoring glucose at home and being compliant with his insulin. Recommended additional IVF & repeating labs however patient not agreeable. Would like to be discharged. Will sign out AMA. He is A&O x3/competent to make his own decisions. States he completed his p.o. antibiotics outpatient > will give additional 3 days of doxycycline/Keflex Medications Administered Discontinued Medications Generic Name Dose Route Start Last Admin Trade Name Freq PRN Reason Stop Dose Admin Lactated Ringer's 1,000 mls @ 999 mls/hr 02/11/24 12:30 02/11/24 13:53 Lr IV 02/11/24 13:30 Infused .Q1H1M LUÍS Infusion Lactated Ringer's 1,000 mls @ 999 mls/hr 02/11/24 12:30 02/11/24 15:15 Lr IV 02/11/24 13:30 Infused .Q1H1M LUÍS Infusion Lactated Ringer's 1,000 mls @ 999 mls/hr 02/11/24 14:15 02/11/24 15:34 Lr IV 02/11/24 15:15 999 mls/hr .Q1H1M LUÍS Administration Medical Decision Making Medical Decision Making [facility] Narrative: 68-year-old male with a past medical history HIV, IVDA, right antecubital abscess presenting to the ED complaining of persistent right-sided antecubital abscess, dry mouth, and 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 On exam mildly tachycardic likely from dehydration, NAD/nontoxic appearing, physical exam as noted above with indurated abscess to right antecubital region without appreciable cellulitis or drainable collection. Concern for DKA vs HHS vs metabolic abnormalities. Low suspicion for severe sepsis. No I&D indicated at this time Plan: EKG, labs, UA, IVF, re-evaluate Please refer to course for remaining clinical decision making, interpretation of labs/imaging results, and discussions with consultants and/or family members. Differential Diagnosis Differential Diagnoses: The differential diagnosis associated with the presentation includes As above Admission/Observation Consideration of admission/observation: Escalation of care including admission/observation considered Lab Data MDM Lab Attestation statement: I reviewed the patient's lab results. 02/11/24 12:55 02/11/24 15:19 Labs: Lab Results 02/11/24 02/11/24 02/11/24 Range/Units 11:55 12:47 12:54 WBC (4.8-10.8) X10*3/uL RBC (4.60-5.80) X10*6/uL Hgb (14.0-18.0) g/dl Hct (42.0-52.0) % MCV (80.0-98.0) fL MCH (27.0-33.0) pg MCHC (31.0-36.0) g/dl RDW (11.0-16.0) % Plt Count (160-400) X10*3/uL MPV Immature Gran % (Auto) (0.0-0.4) % Neut % (Auto) (45-73) % Lymph % (Auto) (20-40) % [place] % (Auto) (2-11) % Eos % (Auto) (0-4) % Baso % (Auto) (0-2) % Lymph # (Auto) (1.2-4.9) X10*3/uL [place] # (Auto) (0.1-1.2) X10*3/uL Eos # (Auto) (0.0-0.4) X10*3/uL Baso # (Auto) (0.0-0.2) X10*3/uL Abs Immat Gran (auto) (0.00-0.03) X10*3/uL Absolute Neuts (auto) (2.0-8.3) x10*3/uL Absolute Nucleated RBC (0.0-0.012) X10*3/uL Nucleated RBC % (auto) (0.0-0.2) /100WBC Smear Tech's Comments VBG pH 7.40 (7.32-7.43) VBG pCO2 51 mmHg VBG pO2 57 mmHg VBG HCO3 31 H (22-26) mmol/L VBG O2 Saturation 84.0 % VBG Base Excess 5.7 mmol/L Sodium 132 L (135-145) mmol/L Potassium 4.1 (3.3-5.1) mmol/L Chloride 88 L (96-108) mmol/L Carbon Dioxide 28 (22-29) mmol/L Anion Gap 20 (12-20) BUN 34 H (9-16) mg/dL Creatinine 1.76 H (0.5-1.4) mg/dL Estim Creat Clear Calc 40.7 Estimated GFR 39 POC Glucose > 600 H* (60-115) mg/dL Random Glucose 677 H* (60-115) mg/dL Lactic Acid (0.5-2.0) mmol/L Calcium 10.0 (8.4-10.2) mg/dL Magnesium 2.2 (1.6-2.6) mg/dL Total Bilirubin 0.3 (0.0-1.0) mg/dL Direct Bilirubin 0.1 (0.0-0.5) mg/dL AST 20 (5-37) U/L ALT 16 (0-40) U/L Alkaline Phosphatase 127 H (39-117) U/L Total Protein 8.0 (6.5-8.0) g/dL Albumin 3.8 (3.5-5.0) g/dL Beta-Hydroxybutyrate 0.11 (0.02-0.27) mmol/L Urine Color Urine Appearance Urine pH (5.0-9.0) Ur Specific [place] (1.005-1.025) Urine Protein (Neg-Trace) mg/dL Urine Glucose (UA) (Negative) mg/dL Urine Ketones (Negative) mg/dL Urine Blood (Negative) Urine Nitrite (Negative) Ur Leukocyte Esterase (Negative) Urine RBC (0-2) /HPF Urine WBC (0-5) /HPF Ur Squamous Epith Cells (0-2) /HPF Urine Bacteria (None Seen) Hyaline Casts (0-2) /LPF 02/11/24 02/11/24 02/11/24 Range/Units 12:55 13:33 13:51 WBC 6.9 (4.8-10.8) X10*3/uL RBC 4.92 (4.60-5.80) X10*6/uL Hgb 12.8 L (14.0-18.0) g/dl Hct 39.4 L (42.0-52.0) % MCV 80.1 (80.0-98.0) fL MCH 26.0 L (27.0-33.0) pg MCHC 32.5 (31.0-36.0) g/dl RDW 13.7 (11.0-16.0) % Plt Count 202 (160-400) X10*3/uL MPV Not Reportable Immature Gran % (Auto) 0.4 (0.0-0.4) % Neut % (Auto) 74.5 H (45-73) % Lymph % (Auto) 19.2 L (20-40) % [place] % (Auto) 4.9 (2-11) % Eos % (Auto) 0.4 (0-4) % Baso % (Auto) 0.6 (0-2) % Lymph # (Auto) 1.3 (1.2-4.9) X10*3/uL [place] # (Auto) 0.3 (0.1-1.2) X10*3/uL Eos # (Auto) 0.0 (0.0-0.4) X10*3/uL Baso # (Auto) 0.0 (0.0-0.2) X10*3/uL Abs Immat Gran (auto) 0.03 (0.00-0.03) X10*3/uL Absolute Neuts (auto) 5.2 (2.0-8.3) x10*3/uL Absolute Nucleated RBC 0.000 (0.0-0.012) X10*3/uL Nucleated RBC % (auto) 0.0 (0.0-0.2) /100WBC Smear Tech's Comments VERIFIED VBG pH (7.32-7.43) VBG pCO2 mmHg VBG pO2 mmHg VBG HCO3 (22-26) mmol/L VBG O2 Saturation % VBG Base Excess mmol/L Sodium (135-145) mmol/L Potassium (3.3-5.1) mmol/L Chloride (96-108) mmol/L Carbon Dioxide (22-29) mmol/L Anion Gap (12-20) BUN (9-16) mg/dL Creatinine (0.5-1.4) mg/dL Estim Creat Clear Calc Estimated GFR POC Glucose 407 H* (60-115) mg/dL Random Glucose (60-115) mg/dL Lactic Acid 5.8 H* (0.5-2.0) mmol/L Calcium (8.4-10.2) mg/dL Magnesium (1.6-2.6) mg/dL Total Bilirubin (0.0-1.0) mg/dL Direct Bilirubin (0.0-0.5) mg/dL AST (5-37) U/L ALT (0-40) U/L Alkaline Phosphatase (39-117) U/L Total Protein (6.5-8.0) g/dL Albumin (3.5-5.0) g/dL Beta-Hydroxybutyrate (0.02-0.27) mmol/L Urine Color Yellow Urine Appearance Clear Urine pH 5.5 (5.0-9.0) Ur Specific [place] >= 1.030 H (1.005-1.025) Urine Protein Negative (Neg-Trace) mg/dL Urine Glucose (UA) >=1000 H (Negative) mg/dL Urine Ketones Negative (Negative) mg/dL Urine Blood Negative (Negative) Urine Nitrite Negative (Negative) Ur Leukocyte Esterase Negative (Negative) Urine RBC 0-2 (0-2) /HPF Urine WBC 0-5 (0-5) /HPF Ur Squamous Epith Cells 0-2 (0-2) /HPF Urine Bacteria None Seen (None Seen) Hyaline Casts 0-2 (0-2) /LPF 02/11/24 Range/Units 15:19 WBC (4.8-10.8) X10*3/uL RBC (4.60-5.80) X10*6/uL Hgb (14.0-18.0) g/dl Hct (42.0-52.0) % MCV (80.0-98.0) fL MCH (27.0-33.0) pg MCHC (31.0-36.0) g/dl RDW (11.0-16.0) % Plt Count (160-400) X10*3/uL MPV Immature Gran % (Auto) (0.0-0.4) % Neut % (Auto) (45-73) % Lymph % (Auto) (20-40) % [place] % (Auto) (2-11) % Eos % (Auto) (0-4) % Baso % (Auto) (0-2) % Lymph # (Auto) (1.2-4.9) X10*3/uL [place] # (Auto) (0.1-1.2) X10*3/uL Eos # (Auto) (0.0-0.4) X10*3/uL Baso # (Auto) (0.0-0.2) X10*3/uL Abs Immat Gran (auto) (0.00-0.03) X10*3/uL Absolute Neuts (auto) (2.0-8.3) x10*3/uL Absolute Nucleated RBC (0.0-0.012) X10*3/uL Nucleated RBC % (auto) (0.0-0.2) /100WBC Smear Tech's Comments VBG pH (7.32-7.43) VBG pCO2 mmHg VBG pO2 mmHg VBG HCO3 (22-26) mmol/L VBG O2 Saturation % VBG Base Excess mmol/L Sodium 135 (135-145) mmol/L Potassium 3.9 (3.3-5.1) mmol/L Chloride 95 L (96-108) mmol/L Carbon Dioxide 27 (22-29) mmol/L Anion Gap 17 (12-20) BUN 31 H (9-16) mg/dL Creatinine 1.42 H (0.5-1.4) mg/dL Estim Creat Clear Calc 50.4 Estimated GFR 50 POC Glucose (60-115) mg/dL Random Glucose 272 H (60-115) mg/dL Lactic Acid 4.4 H* (0.5-2.0) mmol/L Calcium 10.4 H (8.4-10.2) mg/dL Magnesium (1.6-2.6) mg/dL Total Bilirubin (0.0-1.0) mg/dL Direct Bilirubin (0.0-0.5) mg/dL AST (5-37) U/L ALT (0-40) U/L Alkaline Phosphatase (39-117) U/L Total Protein (6.5-8.0) g/dL Albumin (3.5-5.0) g/dL Beta-Hydroxybutyrate (0.02-0.27) mmol/L Urine Color Urine Appearance Urine pH (5.0-9.0) Ur Specific [place] (1.005-1.025) Urine Protein (Neg-Trace) mg/dL Urine Glucose (UA) (Negative) mg/dL Urine Ketones (Negative) mg/dL Urine Blood (Negative) Urine Nitrite (Negative) Ur Leukocyte Esterase (Negative) Urine RBC (0-2) /HPF Urine WBC (0-5) /HPF Ur Squamous Epith Cells (0-2) /HPF Urine Bacteria (None Seen) Hyaline Casts (0-2) /LPF Independent Interpretation I performed an independent interpretation of an: EKG Radiology Impression Discussion of test interpretation with radiology: I have reviewed the radiologist's reading. Independent Historian Clinical information obtained from an independent historian. History obtained from or confirmed by: EMS External Record Review External record reviewed: Inpatient record, Office record, Outpatient record, Prior outpatient labs, Prior outpatient radiology, Primary care record and Outside ED record Tests considered The following testing was considered but not selected: As above Chronic Conditions Patient?s care impacted by: Diabetes and Other Social Determinants Patient?s care significantly limited by Social Determinants of Health including: Inadequate housing, Low income, Alcoholism and drug addiction in family, Problems related to primary support group, Unemployment, Problems related to employment and Other Social Determinant of Health Discharge Plan Discharge Clinical Impression: Acute hyperglycemia, BRITTNY (acute kidney injury) Patient Disposition: Still a Patient Prescriptions: No Action omeprazole 20 mg capsule,delayed release(DR/EC) 20 mg PO BID Qty: 60 0RF oxycodone-acetaminophen [Percocet] 5-325 mg tablet 1 tab PO TID PRN (Reason: pain) Qty: 9 0RF ondansetron HCl [Zofran] 4 mg tablet 4 mg PO Q6H PRN (Reason: pain) Qty: 8 0RF sulfamethoxazole-trimethoprim [Bactrim DS] 800-160 mg tablet 1 tab PO Q12H Qty: 20 0RF cephalexin 500 mg capsule 500 mg PO Q8H 10 Days Qty: 30 0RF naproxen [Naprosyn] 500 mg tablet 500 mg PO BID PRN (Reason: pain) Qty: 20 0RF Cipro HC 0.2-1 % drops,suspension 3 drp otic (ears) Q12H 7 Days Qty: 10 0RF cephalexin 500 mg capsule 500 mg PO QID 10 Days Qty: 40 0RF doxycycline hyclate 100 mg tablet 100 mg PO BID Qty: 20 0RF insulin lispro [Humalog Arnaldo KwikPen U-100] 100 unit/mL insulin pen, half-unit 10.5 unit subcut BEDTIME Lantus Solostar U-100 Insulin 100 unit/mL (3 mL) insulin pen 10 unit subcut BID pioglitazone 45 mg tablet 45 mg PO DAILY Print Language: Telugu
--- NOTE | 2024-02-11 12:14 | ECG_ITS ---
Test Reason : HYPERGLYCEMIA Blood Pressure : / mmHG Vent. Rate : 088 BPM Atrial Rate : 088 BPM P-R Int : 166 ms QRS Dur : 074 ms QT Int : 404 ms P-R-T Axes : -20 -07 000 degrees QTc Int : 488 ms Normal sinus rhythm Nonspecific T wave abnormality Prolonged QT Abnormal ECG When compared with ECG of 10-JUN-2023 09:36, Nonspecific T wave abnormality, worse in Inferior leads QT has lengthened Referred By: Scarlett Meyer Electronically Signed By:JOURDAN CALDERA
[2024-02-11] MEDS: Lactated Ringers 1,000 ML 999 ML IV ×3 (12:43→15:34)
[2024-02-11 12:59] LABS: Venous Blood Gas Refer to POC result
[2024-02-11 12:59] LABS: VBG Base Excess 5.7 mmol/L; VBG HCO3 31 mmol/L (22-26); VBG pCO2 51 mmHg; VBG pO2 57 mmHg
[2024-02-11 13:03] LABS: Basophils Percent Auto 0.6 % (0-2); Eosinophils Percent Auto 0.4 % (0-4); Hematocrit 39.4 % (42.0-52.0); Hemoglobin 12.8 g/dl (14.0-18.0); Imm Gran Abs Auto 0.03 X10*3/uL (0.00-0.03); Imm Gran Pct Auto 0.4 % (0.0-0.4); Lymphocytes Absolute Auto 1.3 X10*3/uL (1.2-4.9); Lymphocytes Percent Auto 19.2 % (20-40); MANUAL DIFF FLAG SCAN; Mean Corpuscular HGB Conc 32.5 g/dl (31.0-36.0); Mean Corpuscular Volume 80.1 fL (80.0-98.0); Monocytes Absolute Auto 0.3 X10*3/uL (0.1-1.2); Monocytes Percent Auto 4.9 % (2-11); Neutrophils Absolute Auto 5.2 x10*3/uL (2.0-8.3); Neutrophils Percent Auto 74.5 % (45-73); PLT CLUMP 1; Red Blood Count 4.92 X10*6/uL (4.60-5.80); Red Cell Distribution Width 13.7 % (11.0-16.0); SCAN SMEAR FLAG 1
[2024-02-11 13:04] LABS: White Blood Count 6.9 X10*3/uL (4.8-10.8)
[2024-02-11 13:23] LABS: Platelet Count 202 X10*3/uL (160-400)
[2024-02-11 13:24] LABS: Beta-Hydroxybutyrate 0.11 mmol/L (0.02-0.27)
[2024-02-11 13:25] LABS: SLIDE REVIEW VERIFIED
[2024-02-11 13:45] LABS: Alanine Aminotransferase 16 U/L (0-40); Albumin Level 3.8 g/dL (3.5-5.0); Alkaline Phosphatase 127 U/L (39-117); Anion Gap 20 (12-20); Aspartate Amino Transferase 20 U/L (5-37); Bilirubin Direct 0.1 mg/dL (0.0-0.5); Bilirubin Total 0.3 mg/dL (0.0-1.0); Blood Urea Nitrogen 34 mg/dL (9-16); Carbon Dioxide 28 mmol/L (22-29); Chloride 88 mmol/L (96-108); Creatinine Clr Calc Pharmacy 40.7; Estimated Glomerular Filt Rate 39; Glucose Random 677 mg/dL (60-115); Magnesium 2.2 mg/dL (1.6-2.6); Potassium 4.1 mmol/L (3.3-5.1); Sodium 132 mmol/L (135-145)
[2024-02-11 13:45] LABS: Lactic Acid 5.8 mmol/L (0.5-2.0)
[2024-02-11 13:55] LABS: Glucose, Whole Blood 407 mg/dL (60-115)
[2024-02-11 13:55] LABS: Appearance Urine Clear; Color Urine Yellow; Glucose Urine UA >=1000 mg/dL (Negative); Leukocyte Esterase Urine Negative (Negative); Nitrite Urine Negative (Negative); PH 5.5 (5.0-9.0); Specific Gravity - Urine >= 1.030 (1.005-1.025); UMIC TRIGGER UACC YES; Urine Blood Negative (Negative); Urine Ketones Negative (Negative); Urine Protein Negative (Neg-Trace)
[2024-02-11 14:01] LABS: Bacteria Urine None Seen (None Seen); Hyaline Casts Urine 0-2 /LPF (0-2); RBC Urine 0-2 /HPF (0-2); Squamous Epithelial Cell Urine 0-2 /HPF (0-2); WBC Urine 0-5 /HPF (0-5)
[2024-02-11 14:11] VITALS: BP 109/57; PULSE 89; RESP 18; TEMP 36.4; O2SAT 97
[2024-02-11 14:59] LABS: Reflex Lactate? Lactic Acid Added
[2024-02-11 15:38] LABS: Anion Gap 17 (12-20); Blood Urea Nitrogen 31 mg/dL (9-16); Calcium 10.4 mg/dL (8.4-10.2); Carbon Dioxide 27 mmol/L (22-29); Chloride 95 mmol/L (96-108); Creatinine Clr Calc Pharmacy 50.4; Estimated Glomerular Filt Rate 50; Glucose Random 272 mg/dL (60-115); Potassium 3.9 mmol/L (3.3-5.1); Sodium 135 mmol/L (135-145)
[2024-02-11 15:41] LABS: Lactic Acid 4.4 mmol/L (0.5-2.0)
[2024-02-11 16:17] LABS: Glucose, Whole Blood 202 mg/dL (60-115)
[2024-02-11 16:18] VITALS: BP 109/57; PULSE 80; RESP 18; TEMP 36.6; O2SAT 98
[2024-02-11 17:23] LABS: Reflex Lactate? Lactic Acid Added
== END 2024-02-11 16:18 | disposition left against medical advice (07) ==
PROVIDERS: Physician Assistant; Emergency Provider Emergency Medicine
DX: L02.413 Cutaneous abscess of right upper limb (principal); E11.65 Type 2 diabetes mellitus with hyperglycemia; N17.9 Acute kidney failure, unspecified; R11.0 Nausea; Z79.899 Other long term (current) drug therapy; Z79.4 Long term (current) use of insulin
CPT/HCPCS: 10060; 36415; 80048; 80076; 81001; 82010; 82803; 82947; 83605; 83735; 85025; 87040; 93005; 96360; 96361; 99284; J7120

== ENCOUNTER → 2024-02-11 12:14 | Outpatient (BNV) | payer OTHER, SELFPAY | PROVIDERS: Emergency Provider Emergency Medicine; Visit Provider Internal Medicine | DX: R94.31 Abnormal electrocardiogram [ECG] [EKG] (principal) | CPT/HCPCS: 93010 ==

== ENCOUNTER 2024-05-02 09:02 | Outpatient (REF) | payer OTHER, SELFPAY ==
[2024-05-02 14:03] LABS: MANUAL DIFF FLAG NO
[2024-05-02 14:08] LABS: Appearance Urine Clear; Color Urine Yellow; Glucose Urine UA 500 mg/dL (Negative); Leukocyte Esterase Urine Negative (Negative); Nitrite Urine Negative (Negative); PH 5.5 (5.0-9.0); Specific Gravity - Urine >= 1.030 (1.005-1.025); UMIC TRIGGER UACC YES; Urine Blood Negative (Negative); Urine Ketones Trace mg/dL (Negative); Urine Protein 30 (1+) mg/dL (Neg-Trace)
[2024-05-02 14:10] LABS: Basophils Percent Auto 0.7 % (0-2); Eosinophils Absolute Auto 0.1 X10*3/uL (0.0-0.4); Eosinophils Percent Auto 2.2 % (0-4); Hematocrit 33.7 % (42.0-52.0); Hemoglobin 10.9 g/dl (14.0-18.0); Imm Gran Abs Auto 0.03 X10*3/uL (0.00-0.03); Imm Gran Pct Auto 0.7 % (0.0-0.4); Lymphocytes Absolute Auto 1.4 X10*3/uL (1.2-4.9); Lymphocytes Percent Auto 30.8 % (20-40); Mean Corpuscular HGB Conc 32.3 g/dl (31.0-36.0); Mean Corpuscular Volume 80.2 fL (80.0-98.0); Mean Platelet Volume 10.1 fL (9.4-12.4); Monocytes Absolute Auto 0.4 X10*3/uL (0.1-1.2); Monocytes Percent Auto 8.5 % (2-11); Neutrophils Absolute Auto 2.6 x10*3/uL (2.0-8.3); Neutrophils Percent Auto 57.1 % (45-73); Platelet Count 224 X10*3/uL (160-400); Red Cell Distribution Width 13.6 % (11.0-16.0); White Blood Count 4.5 X10*3/uL (4.8-10.8)
[2024-05-02 14:20] LABS: Bacteria Urine None Seen (None Seen); RBC Urine 0-2 /HPF (0-2); WBC Urine 0-5 /HPF (0-5)
[2024-05-02 14:39] LABS: Alanine Aminotransferase 17 U/L (0-40); Albumin Level 3.8 g/dL (3.5-5.0); Alkaline Phosphatase 97 U/L (39-117); Anion Gap 13 (12-20); Aspartate Amino Transferase 27 U/L (5-37); Bilirubin Total 0.3 mg/dL (0.0-1.0); Blood Urea Nitrogen 25 mg/dL (9-16); Calcium 8.8 mg/dL (8.4-10.2); Carbon Dioxide 29 mmol/L (22-29); Chloride 99 mmol/L (96-108); Estimated Glomerular Filt Rate > 60; Glucose Random 341 mg/dL (60-115); Potassium 4.5 mmol/L (3.3-5.1); Sodium 136 mmol/L (135-145); Total Protein 7.8 g/dL (6.5-8.0)
[2024-05-02 16:08] LABS: CT PCR NOT DETECTED (Not Detect.); NG PCR NOT DETECTED (Not Detect.)
[2024-05-03 04:18] LABS: HBS Num1 6.19 mIU/mL (0-7.99); HBc Num1 5.53 S/CO (0.00-0.79); HBsAGNum1 0.45 S/CO (0.00-0.99); Hepatitis B Surface Antigen Negative (Negative); ~HepC Num1 9.39 S/CO (0.00-0.79); ~Hepatitis B Surface Antibody NONREACTIVE (Nonreactive); ~Hepatitis C Antibody Reactive (Nonreactive)
[2024-05-03 04:20] LABS: Hepatitis A Antibody IgG REACTIVE (Nonreactive); ~Hepatitis A Antibody IgG 11.73 S/CO (0.00-0.99)
[2024-05-03 05:02] LABS: HBc Num2 5.72 S/CO; Hepatitis B Core Antibody Reactive (Nonreactive)
[2024-05-03 13:23] LABS: HIV RNA PCR Qn Copies 66 copies/mL (NOT DETECTED); HIV RNA PCR Qn Log Copies 1.82 (NOT DETECTED)
[2024-05-05 05:28] LABS: Hepatitis B Core Antibody IgM NON-REACTIVE (NON-REACTIVE)
[2024-05-06 13:08] LABS: Absolute CD3 Count 1068 cells/uL (840-3060); Absolute CD4 Count 446 cells/uL (490-1740); Absolute CD8 Count 632 cells/uL (180-1170); Absolute Lymphocytes 1394 cells/uL (850-3900); CD4 CD8 Ratio 0.71 (0.86-5.00); Percent CD3 Cells 77 % (57-85); Percent CD4 Cells 32 % (30-61); Percent CD8 Cells 45 % (12-42)
[2024-05-06 14:23] LABS: TS Negative Control Passed; TS Panel A 0; TS Panel B 0; TS Positive Control Passed; TSpotTB Negative (Negative)
[2024-05-07 18:28] LABS: HCV Log PCR <1.18 NOT DETECTED Log IU/mL (NOT DETECTED); HepC Viral Load <15 NOT DETECTED IU/mL (NOT DETECTED)
== END 2024-05-02 09:03 | disposition home or self-care (01) ==
LOC: HO.CHCLDS 09:02
PROVIDERS: PCP Internal Medicine; Visit Provider Internal Medicine
DX: Z21 Asymptomatic human immunodeficiency virus [HIV] infection status (principal)
CPT/HCPCS: 36415; 80053; 81001; 85025; 86359; 86360; 86481; 86704; 86705; 86706; 86708; 86803; 87340; 87491; 87522; 87536; 87591

== ENCOUNTER 2024-08-28 17:36 | Outpatient (REF) | payer OTHER, SELFPAY | END 2024-08-28 17:37 | disposition home or self-care (01) | LOC: HO.HHCLNP 17:36 | PROVIDERS: Visit Provider Internal Medicine | DX: Z21 Asymptomatic human immunodeficiency virus [HIV] infection status (principal) | CPT/HCPCS: 88112 ==

== ENCOUNTER 2024-09-08 13:55 | Outpatient (REF) | payer OTHER, SELFPAY ==
[2024-09-08 17:54] LABS: Alanine Aminotransferase 25 U/L (0-40); Albumin Level 3.9 g/dL (3.5-5.0); Alkaline Phosphatase 111 U/L (39-117); Anion Gap 14 (12-20); Aspartate Amino Transferase 44 U/L (5-37); Bilirubin Direct 0.2 mg/dL (0.0-0.5); Bilirubin Total 0.3 mg/dL (0.0-1.0); Blood Urea Nitrogen 30 mg/dL (9-16); Calcium 9.7 mg/dL (8.4-10.2); Carbon Dioxide 28 mmol/L (22-29); Chloride 96 mmol/L (96-108); Cholesterol 96 mg/dL (<200); Estimated Glomerular Filt Rate > 60; Glucose Random 308 mg/dL (60-115); HDL Cholesterol 27 mg/dL (>40); LDL Cholesterol Calculated 28 mg/dL (<100); Potassium 4.5 mmol/L (3.3-5.1); Sodium 133 mmol/L (135-145); Triglycerides 209 mg/dL (<150)
[2024-09-08 18:13] LABS: PSA,Total (Free>4and<10) 4.63 ng/mL (0.00-4.00)
[2024-09-10 12:43] LABS: Free Prostate Spec Ag 0.3 ng/mL; Percent Free Prostate Spec Ag 7 % (calc) (>25); Prostate Specific Ag Total 4.1 ng/mL (< OR = 4.0)
== END 2024-09-08 13:56 | disposition home or self-care (01) ==
LOC: HO.CHCLDS 13:55
PROVIDERS: Visit Provider Internal Medicine
DX: R63.4 Abnormal weight loss (principal); E11.29 Type 2 diabetes mellitus with other diabetic kidney complication; R80.9 Proteinuria, unspecified; Z79.4 Long term (current) use of insulin; Z12.5 Encounter for screening for malignant neoplasm of prostate
CPT/HCPCS: 36415; 80048; 80061; 80076; 84153; 84154